=== PATIENT | female | born 1955 | race Caucasian/White ===

== ENCOUNTER → 2021-09-24 09:55 | Outpatient (BNVA) | payer MEDICARE, SELFPAY | PROVIDERS: PCP Internal Medicine; Visit Provider Student in an Organized Health Care Education/Training Program | DX: M25.50 Pain in unspecified joint (principal); M85.80 Other specified disorders of bone density and structure, unspecified site; Z78.0 Asymptomatic menopausal state | CPT/HCPCS: 99202 ==

== ENCOUNTER 2021-10-01 10:04 | Outpatient (REF) | payer OTHER, SELFPAY ==
--- NOTE | ~2021-10-01 | XR_ITS ---
EXAMINATION: XR HAND AND WRIST, RIGHT XR HAND AND WRIST, LEFT XR FOOT, LEFT XR FOOT, RIGHT CLINICAL INFORMATION: Pain. COMPARISON: None TECHNIQUE: 3 views of both hands and wrists as well as scaphoid views of the wrists bilaterally. 3 views of each foot. FINDINGS: RIGHT HAND AND WRIST: There is no evidence of acute fracture or dislocation of the right hand or wrist. Joint spaces are essentially maintained. There is a 1 mm bony density seen adjacent to the 5th metatarsal head likely representing sequela of previous injury. There is some spurring about the 1st interphalangeal joint. There is negative ulnar variance present. No erosive changes are appreciated. LEFT HAND AND WRIST: Joint spaces are maintained. There is spurring about the 1st interphalangeal joint. No erosive changes are appreciated. There is mild negative ulnar variance. No evidence of erosive arthritides. There is some spurring about the 1st carpometacarpal joint. There is mild spurring about the 5th proximal interphalangeal joint. RIGHT FOOT: There is no evidence of an acute fracture or dislocation of the right foot. There is prominent periosteal reaction which is smooth along the shaft of the 4th metatarsal likely related to healing or healed stress fracture. This is also seen to a lesser extent involving the 2nd and 3rd metatarsals. Joint spaces are maintained. Prominent plantar and Achilles calcaneal spurs are present. LEFT FOOT: There is no evidence of acute fracture or dislocation of the left foot. The left foot joint spaces are maintained. No periosteal new bone formation is seen about the diaphysis of the 4th metatarsal likely related to healed or healing stress fracture. There are prominent calcaneal spurs at sites of insertion of Achilles and plantar tendons. There is spurring at the dorsum of the talonavicular joint. XR/XR hand wrist RT IMPRESSION: LEFT AND RIGHT HAND AND WRIST: Mild degenerative change of the hands and wrists bilaterally as described without evidence of erosive arthritides. Bilateral negative ulnar variance. LEFT AND RIGHT FOOT: 1. Prominent bilateral calcaneal spurs at sites of insertion of Achilles and plantar tendons. 2. Bilateral smooth periosteal thickening involving metatarsals consistent with healing or healed stress fractures.
[2021-10-01 10:58] LABS: MANUAL DIFF FLAG NO
[2021-10-01 11:52] LABS: Basophils Percent Auto 0.7 % (0-2); Eosinophils Absolute Auto 0.2 X10*3/uL (0.0-0.4); Eosinophils Percent Auto 2.5 % (0-4); Hematocrit 46.1 % (37.0-47.0); Hemoglobin 14.8 g/dl (12.0-16.0); Imm Gran Abs Auto 0.02 X10*3/uL (0.00-0.03); Imm Gran Pct Auto 0.3 % (0.0-0.4); Lymphocytes Absolute Auto 1.8 X10*3/uL (1.2-4.9); Lymphocytes Percent Auto 30.1 % (20-40); Mean Corpuscular HGB Conc 32.1 g/dl (31.0-35.0); Mean Corpuscular Hemoglobin 28.7 pg (27.0-33.0); Mean Corpuscular Volume 89.5 fL (80.0-98.0); Mean Platelet Volume 10.3 fL (9.4-12.3); Monocytes Absolute Auto 0.5 X10*3/uL (0.1-1.2); Monocytes Percent Auto 7.5 % (2-11); Neutrophils Absolute Auto 3.6 x10*3/uL (2.0-8.3); Neutrophils Percent Auto 58.9 % (45-73); Platelet Count 242 X10*3/uL (160-400); Red Blood Count 5.15 X10*6/uL (4.20-5.50); Red Cell Distribution Width 15.9 % (11.0-16.0)
[2021-10-01 12:31] LABS: Alanine Aminotransferase 26 U/L (0-31); Albumin Level 4.2 g/dL (3.5-5.0); Alkaline Phosphatase 52 U/L (39-117); Anion Gap 14 (12-20); Aspartate Amino Transferase 22 U/L (5-31); Bilirubin Total 0.8 mg/dL (0.0-1.0); Blood Urea Nitrogen 17 mg/dL (9-16); C Reactive Protein 0.29 mg/dL (< or = 0.50); Calcium 9.3 mg/dL (8.4-10.2); Carbon Dioxide 27 mmol/L (22-29); Chloride 104 mmol/L (96-108); Estimated Glomerular Filt Rate 58; Glucose Random 82 mg/dL (60-115); Potassium 4.6 mmol/L (3.3-5.1); Sodium 140 mmol/L (135-145); Total Protein 6.9 g/dL (6.5-8.0)
[2021-10-01 12:51] LABS: Rheumatoid Factor < 15.0 IU/mL (<15.0)
[2021-10-01 13:11] LABS: Erythrocyte Sedimentation Rate 7 MM/HR (0-20)
[2021-10-03 15:46] LABS: Cyclic Citrullinated Peptide <16 UNITS
== END 2021-10-01 10:05 | disposition home or self-care (01) ==
LOC: HO.LAB 10:04
PROVIDERS: PCP Internal Medicine; Visit Provider Student in an Organized Health Care Education/Training Program
DX: M79.671 Pain in right foot (principal); M79.672 Pain in left foot; M79.641 Pain in right hand; M79.642 Pain in left hand; M25.531 Pain in right wrist; M25.532 Pain in left wrist; M85.80 Other specified disorders of bone density and structure, unspecified site; Z78.0 Asymptomatic menopausal state
CPT/HCPCS: 36415; 73110; 73130; 73620; 80053; 82550; 85025; 85652; 86140; 86200; 86431

== ENCOUNTER → 2021-10-22 09:23 | Outpatient (BNVA) | payer OTHER, SELFPAY | PROVIDERS: PCP Internal Medicine; Visit Provider Student in an Organized Health Care Education/Training Program | DX: M79.7 Fibromyalgia (principal) | CPT/HCPCS: 99212 ==

== ENCOUNTER 2021-10-30 13:56 | Outpatient (REF) | payer OTHER, SELFPAY ==
--- NOTE | ~2021-10-30 | MM_ITS ---
EXAMINATION: BONE DENSITOMETRY CLINICAL INDICATION: Pain in unspecified joint. COMPARISON: This is the patient's baseline examination. TECHNIQUE: Using a [employer] DXA System (software version: 13.1) manufactured by [employer], dual-energy x-ray absorptiometry was performed of the lumbar spine and left hip. The images are of good technical quality. Summary results are attached. FINDINGS: AP SPINE L1-L4: BMD 0.912 g/cm2, Z-score -0.9, T-score -2.2, osteopenia. LEFT FEMUR, NECK: BMD 0.846 g/cm2, Z-score 0.0, T-score -1.4, osteopenia. LEFT FEMUR, TOTAL: BMD 1.046 g/cm2, Z-score 1.4, T-score 0.3, normal. IDENTIFIED RISK FACTORS: Menopause, height loss, hysterectomy, osteoporosis, glucocorticoids (chronic), bilateral oophorectomy. HISTORY OF FRACTURE: None listed. MEDICATIONS: Calcium, vitamin D. MM/XR DEXA axial skeleton IMPRESSION: 1. DIAGNOSIS: Osteopenia based on the lowest T-score value of -2.2 in the lumbar spine applying World Health Organization criteria. 2. 10-YEAR FRACTURE RISK PREDICTION, FRAX: Major osteoporotic fracture (clinical spine, forearm, hip or shoulder) 7.7%. Hip fracture 0.9%. 3. Treatment Recommendations: NOF guidelines recommend consideration for treatment in postmenopausal women and men age 50 and older presenting with the following: -A hip or vertebral (clinical or morphometric) fracture. -T-score less than or equal to -2.5 at the femoral neck or spine after appropriate evaluation to exclude secondary causes. -Low bone mass at the hip or spine and a 10-year fracture probability by FRAX of greater than or equal to 3% for hip fracture or greater than or equal to 20% for major osteoporotic fracture based on the [place] adapted WHO algorithm. 4. Other Recommendations: All treatment decisions require clinical judgment and consideration of individual patient factors, including patient preferences, comorbidities, previous drug use, risk factors not captured in the FRAX model (e.g. frailty, falls, vitamin D deficiency, increased bone turnover, interval significant decline in bone density) and possible under or overestimation of fracture risk by FRAX. Additional medical evaluation for secondary cause of low bone mineral density may be appropriate. FUTURE SCAN RECOMMENDATION: People with diagnosed cases of osteoporosis or at high risk for fracture should have regular bone mineral density tests. For patients eligible for Medicare, routine testing is allowed once every 2 years. The testing frequency can be increased to one year for patients who have rapidly progressing disease, those who are receiving or discontinuing medical therapy to restore bone mass, or have additional risk factors.
== END 2021-10-30 13:57 | disposition home or self-care (01) ==
LOC: HO.MAMMO 13:56
PROVIDERS: PCP Internal Medicine; Visit Provider Student in an Organized Health Care Education/Training Program
DX: Z13.820 Encounter for screening for osteoporosis (principal); Z78.0 Asymptomatic menopausal state; M85.88 Other specified disorders of bone density and structure, other site; M25.50 Pain in unspecified joint
CPT/HCPCS: 77080

== ENCOUNTER 2023-01-05 09:36 | Outpatient (AMB) | payer OTHER, SELFPAY ==
--- NOTE | 2023-01-05 09:45 | HO.NEPHOV ---
HPI HPI Comments History of Present Illness Details I had the privilege of seeing Mrs. Eldridge accompanied by her CERTIFIED CREDIT COUNSELOR in follow-up of her hypertension. She had her right carpal tunnel surgery few days ago. She is not taking any anti-inflammatory medications. Her blood sugar and blood pressure are well controlled. She does not have any pedal edema, urinary symptoms, orthostasis, chest pain or proximal nocturnal dyspnea. She had eczematous rash in the past which was thought to be due to hydrochlorothiazide. She also had emotional lability on metoprolol and was discontinued. She is tolerating spironolactone and labetalol. She has a lot of medications side effects. She denies any nausea, vomiting, diarrhea. She is compliant with the low-sodium diet and her medications. [facility] Medical History (Updated 01/05/23 @ 11:26 by Hernando Sharpe MD) Osteopenia Diverticulosis Hypothyroidism Anxiety Type 2 diabetes mellitus without complication Eczema Trigeminal neuralgia of right side of face Surgical History Hx of hysterectomy Hx of tubal ligation Hx of cholecystectomy Household Members: Spouse Alcohol intake: never Patient Tobacco Use Status: Never used Tobacco service: No Current occupational status: retired Vital Signs 01/05/23 09:47 01/05/23 10:04 Height 4 ft 11 in Weight 174 lb 6 oz BMI 35.2 BP 140/88 H 120/80 Blood Pressure Location Lt brachial Position Sitting Pulse 56 Pulse Source Pulse Oximeter Pulse Oximetry (%) 98 Oxygen Delivery Method Room Air Physical Exam Vital Signs: Last Vital Signs Pulse 56 01/05/23 09:47 BP 120/80 01/05/23 10:04 Pulse Ox 98 01/05/23 09:47 Oxygen Delivery Method Room Air 01/05/23 09:47 BMI result Body Mass Index 35.2 Const General: comfortable and no acute distress Orientation/consciousness: patient oriented x3 HEENT Head: Yes normocephalic Mouth: Normal oral and palatal mucosa present Eyes EOM: EOMs intact bilaterally Neck Neck: Yes supple Resp Auscultation: clear to auscultation bilaterally Cardio Jugular venous distension: no JVD Rate: regular rate GI Palpation (GI): Soft to palpation Auscultation: normal bowel sounds General: Yes no CVA tenderness Back/Spine/Pelvis Back: no CVA tenderness Skin General skin exam: no rashes or lesions noted Neuro General: patient oriented x3 and moves all extremities Extrem General: Yes no pedal edema Assessment & Plan Assessment & Plan (1) Hypertension: Code(s): I10 - Essential (primary) hypertension Qualifiers: Hypertension type: primary hypertension Qualified Code(s): I10 - Essential (primary) hypertension Plan Mrs Eldridge has longstanding hypertension on a backdrop of multiple medication intolerances. She had eczematous rashes due to hydrochlorothiazide and it was discontinued. She could not handle metoprolol acid was giving her emotional instability. She is currently on labetalol and spironolactone, which she is tolerating well. She is trying to lose some weight, maintain good hydration, avoid nonsteroidal anti-inflammatory medications and maintain a low-sodium diet. I did not make any medication changes today. I went over current management strategy and discussed regarding laboratory studies and further followups. All her questions were answered. Follow-up was given. Time spent for retrieval of data, patient encounter and documentation 23 minutes. Orders: Orders Protein Creatinine Ratio, Ur Today I10 - Essential (primary) hypertension Electrolytes Today I10 - Essential (primary) hypertension Blood Urea Nitrogen Today I10 - Essential (primary) hypertension Creatinine Today I10 - Essential (primary) hypertension Calcium Today I10 - Essential (primary) hypertension Coding Level of Care Code Est Pt Level 3 (46473) Diagnoses Primary hypertension I10 Hypertension type: primary hypertension
[2023-01-05 09:47] VITALS: BP 140/88; PULSE 56; O2SAT 98; BMI 35.2
[2023-01-05 10:04] VITALS: BP 120/80
== END 2023-01-05 10:18 | disposition home or self-care (01) ==
PROVIDERS: PCP Internal Medicine; Visit Provider Internal Medicine Nephrology
DX: I10 Essential (primary) hypertension (principal)
CPT/HCPCS: 99213

== ENCOUNTER → 2023-01-05 09:36 | Outpatient (BNVA) | payer OTHER, SELFPAY | PROVIDERS: PCP Internal Medicine; Visit Provider Internal Medicine Nephrology | DX: I10 Essential (primary) hypertension (principal) | CPT/HCPCS: 99212 ==

== ENCOUNTER 2023-04-09 09:32 | Outpatient (AMB) | payer OTHER, SELFPAY ==
--- NOTE | 2023-04-09 09:41 | HO.NEPHOV ---
HPI HPI Comments History of Present Illness Details I had the privilege of seeing Mrs. Eldridge in follow-up of her hypertension. She recently had her right carpal tunnel surgery. She is not taking any anti-inflammatory medications. She does not have any pedal edema, urinary symptoms, orthostasis, chest pain or proximal nocturnal dyspnea. She had eczematous rash in the past which was thought to be due to hydrochlorothiazide. She also had emotional lability on metoprolol and was discontinued. She is tolerating spironolactone and labetalol. She has a lot of medications side effects. She denies any nausea, vomiting, diarrhea. She is compliant with the low-sodium diet and her medications [facility] Medical History (Updated 01/05/23 @ 11:26 by Hernando Sharpe MD) Osteopenia Diverticulosis Hypothyroidism Anxiety Type 2 diabetes mellitus without complication Eczema Trigeminal neuralgia of right side of face Surgical History Hx of hysterectomy Hx of tubal ligation Hx of cholecystectomy Social History Household Members: Spouse Alcohol intake: never Patient Tobacco Use Status: Never used Tobacco service: No Current occupational status: retired Vital Signs 04/09/23 09:44 Height 4 ft 11 in Weight 175 lb 2 oz BMI 35.4 BP 140/90 H Blood Pressure Location Lt brachial Position Sitting Pulse 55 Pulse Source Pulse Oximeter Pulse Oximetry (%) 98 Oxygen Delivery Method Room Air Physical Exam Const General: comfortable and no acute distress Orientation/consciousness: patient oriented x3 HEENT Head: Yes normocephalic Mouth: Normal oral and palatal mucosa present Eyes EOM: EOMs intact bilaterally Neck Neck: Yes supple Resp Auscultation: clear to auscultation bilaterally Cardio Jugular venous distension: no JVD Rate: regular rate GI Palpation (GI): Soft to palpation Auscultation: normal bowel sounds General: Yes no CVA tenderness Back/Spine/Pelvis Back: no CVA tenderness Skin General skin exam: no rashes or lesions noted Neuro General: patient oriented x3 and moves all extremities Extrem General: Yes no pedal edema Assessment & Plan Assessment & Plan (1) Hypertension: Code(s): I10 - Essential (primary) hypertension Qualifiers: Hypertension type: primary hypertension Qualified Code(s): I10 - Essential (primary) hypertension Plan Mrs Eldridge has longstanding hypertension on a backdrop of multiple medication intolerances. She had eczematous rashes due to hydrochlorothiazide and it was discontinued. She could not handle metoprolol as it was giving her emotional instability. She is currently on labetalol and spironolactone, which she is tolerating well. She is trying to lose some weight, maintain good hydration, avoid nonsteroidal anti-inflammatory medications and maintain a low-sodium diet. I did not make any medication changes today. I went over current management strategy and discussed regarding laboratory studies and further followups. All her questions were answered. Follow-up was given. Orders: Orders Electrolytes Today I10 - Essential (primary) hypertension Creatinine Today I10 - Essential (primary) hypertension Blood Urea Nitrogen Today I10 - Essential (primary) hypertension Coding Level of Care Code Est Pt Level 3 (40231) Diagnoses Primary hypertension I10 Hypertension type: primary hypertension Results Reviewed Nephrology Results: Hgb 14.8 g/dl (12.0-16.0) 10/01/21 WBC 6.0 X10*3/uL (4.8-10.8) 10/01/21 Plt Count 242 X10*3/uL (160-400) 10/01/21 Sodium 140 mmol/L (135-145) 10/01/21 Potassium 4.6 mmol/L (3.3-5.1) 10/01/21 Chloride 104 mmol/L (96-108) 10/01/21 Carbon Dioxide 27 mmol/L (22-29) 10/01/21 BUN 17 mg/dL (9-16) H 10/01/21 Creatinine 0.96 mg/dL (0.5-1.4) 10/01/21 Calcium 9.3 mg/dL (8.4-10.2) 10/01/21
[2023-04-09 09:44] VITALS: BP 140/90; PULSE 55; O2SAT 98; BMI 35.4
== END 2023-04-09 10:14 | disposition home or self-care (01) ==
PROVIDERS: PCP Internal Medicine; Visit Provider Internal Medicine Nephrology
DX: I10 Essential (primary) hypertension (principal)
CPT/HCPCS: 99213

== ENCOUNTER → 2023-04-09 09:32 | Outpatient (BNVA) | payer OTHER, SELFPAY | PROVIDERS: PCP Internal Medicine; Visit Provider Internal Medicine Nephrology | DX: I10 Essential (primary) hypertension (principal) | CPT/HCPCS: 99212 ==

== ENCOUNTER 2023-07-22 08:41 | Outpatient (REF) | payer OTHER, SELFPAY ==
[2023-07-22 19:04] LABS: Anion Gap 10 (12-20); Blood Urea Nitrogen 15 mg/dL (9-16); Calcium 9.5 mg/dL (8.4-10.2); Carbon Dioxide 24 mmol/L (22-29); Chloride 109 mmol/L (96-108); Estimated Glomerular Filt Rate 55; Potassium 4.3 mmol/L (3.3-5.1); Sodium 139 mmol/L (135-145)
[2023-07-22 19:17] LABS: Creatinine Urine 79.68 mg/dL; Total Protein Urine Random < 7 mg/dL (<12)
== END 2023-07-22 08:42 | disposition home or self-care (01) ==
LOC: HO.HKASLDS 08:41
PROVIDERS: Visit Provider Internal Medicine Nephrology
DX: I10 Essential (primary) hypertension (principal)
CPT/HCPCS: 36415; 80051; 82310; 82565; 82570; 84156; 84520

== ENCOUNTER 2023-08-06 10:33 | Outpatient (AMB) | payer OTHER, SELFPAY ==
--- NOTE | 2023-08-06 10:37 | HO.NEPHOV_ITS ---
Vital Signs 08/06/23 10:39 Height 4 ft 11 in Weight 173 lb 6 oz BMI 35.0 BP 118/70 Blood Pressure Location Lt brachial Position Sitting Pulse 64 Pulse Source Pulse Oximeter Pulse Oximetry (%) 98 Oxygen Delivery Method Room Air Intake Visit Reasons: 4 mon follow up/ LVM Forensic Audit Expert Required: No Accompanied by: Other Relationship Allergies benazepril Allergy (Severe, Verified 08/06/23 10:42) Anaphylaxis moxifloxacin Allergy (Intermediate, Verified 08/06/23 10:42) Wheezing duloxetine [From Cymbalta] Adverse Reaction (Intermediate, Verified 08/06/23 10:42) Palpitations pregabalin [From Lyrica] Adverse Reaction (Intermediate, Verified 08/06/23 10:42) Confusion amoxicillin [From Augmentin] Adverse Reaction (Unknown, Verified 08/06/23 10:42) Unknown clavulanic acid [From Augmentin] Adverse Reaction (Unknown, Verified 08/06/23 10:42) Unknown hydralazine Adverse Reaction (Unknown, Verified 08/06/23 10:42) Unknown ibuprofen Adverse Reaction (Unknown, Verified 08/06/23 10:42) Swelling losartan Adverse Reaction (Unknown, Verified 08/06/23 10:42) Nausea nickel Adverse Reaction (Unknown, Verified 08/06/23 10:42) Unknown nifedipine Adverse Reaction (Unknown, Verified 08/06/23 10:42) Unknown prednisone Adverse Reaction (Unknown, Verified 08/06/23 10:42) Unknown maple flavor Adverse Reaction (Severe, Uncoded 10/22/21 09:33) Unknown dust Adverse Reaction (Unknown, Uncoded 10/22/21 09:33) Unknown nuts Adverse Reaction (Unknown, Uncoded 10/22/21 09:33) Unknown pollen Adverse Reaction (Unknown, Uncoded 10/22/21 09:33) Unknown HPI Comments Details: I had the privilege of seeing Mrs. Eldridge in follow-up of her hypertension. She is not taking any anti-inflammatory medications. She does not have any pedal edema, urinary symptoms, orthostasis, chest pain or proximal nocturnal dyspnea. She had eczematous rash in the past which was thought to be due to hydrochlorothiazide. She also had emotional lability on metoprolol and was discontinued. She is tolerating spironolactone and labetalol. She has a lot of medications side effects. She denies any nausea, vomiting, diarrhea. She is compliant with the low-sodium diet and her medications. Her BP has been at goal [facility] Medical History (Updated 01/05/23 @ 11:26 by Hernando Sharpe MD) Osteopenia Diverticulosis Hypothyroidism Anxiety Type 2 diabetes mellitus without complication Eczema Trigeminal neuralgia of right side of face Surgical History Hx of hysterectomy Hx of tubal ligation Hx of cholecystectomy Social History Household Members: Spouse Alcohol intake: never Patient Tobacco Use Status: Never used Tobacco service: No Current occupational status: retired Physical Exam Vital Signs: Last Vital Signs Pulse 64 08/06/23 10:39 BP 118/70 08/06/23 10:39 Pulse Ox 98 08/06/23 10:39 Oxygen Delivery Method Room Air 08/06/23 10:39 BMI result Body Mass Index 35.0 Const General: comfortable and no acute distress Orientation/consciousness: patient oriented x3 HEENT Head: Yes normocephalic Mouth: Normal oral and palatal mucosa present Eyes EOM: EOMs intact bilaterally Neck Neck: Yes supple Resp Auscultation: clear to auscultation bilaterally Cardio Jugular venous distension: no JVD Rate: regular rate GI Palpation (GI): Soft to palpation Auscultation: normal bowel sounds General: Yes no CVA tenderness Back/Spine/Pelvis Back: no CVA tenderness Skin General skin exam: no rashes or lesions noted Neuro General: patient oriented x3 and moves all extremities Extrem General: Yes no pedal edema Results Reviewed Nephrology Results: Sodium 139 mmol/L (135-145) 07/22/23 Potassium 4.3 mmol/L (3.3-5.1) 07/22/23 Chloride 109 mmol/L (96-108) H 07/22/23 Carbon Dioxide 24 mmol/L (22-29) 07/22/23 BUN 15 mg/dL (9-16) 07/22/23 Creatinine 1.00 mg/dL (0.5-1.4) 07/22/23 Calcium 9.5 mg/dL (8.4-10.2) 07/22/23 Urine Creatinine 79.68 mg/dL 07/22/23 Protein/Creatinin Ratio TNP 07/22/23 Assessment & Plan Assessment & Plan (1) Hypertension: Code(s): I10 - Essential (primary) hypertension Category: Medical Qualifiers: Hypertension type: primary hypertension Qualified Code(s): I10 - Essential (primary) hypertension Plan Mrs Eldridge has longstanding hypertension on a backdrop of multiple medication intolerances. She had eczematous rashes due to hydrochlorothiazide and it was discontinued. She could not handle metoprolol as it was giving her emotional instability. She is currently on labetalol and spironolactone, which she is tolerating well. She is trying to lose some weight, maintain good hydration, avoid nonsteroidal anti-inflammatory medications and maintain a low-sodium diet. I did not make any medication changes today. All her questions were answered. Follow-up was given. Coding Level of Care Code Est Pt Level 4 (17668) Diagnoses Primary hypertension I10 Hypertension type: primary hypertension
[2023-08-06 10:39] VITALS: BP 118/70; PULSE 64; O2SAT 98; BMI 35.0
== END 2023-08-06 10:58 | disposition home or self-care (01) ==
PROVIDERS: PCP Internal Medicine; Visit Provider Internal Medicine Nephrology
DX: I10 Essential (primary) hypertension (principal)
CPT/HCPCS: 99214

== ENCOUNTER → 2023-08-06 10:33 | Outpatient (BNVA) | payer OTHER, SELFPAY | PROVIDERS: PCP Internal Medicine; Visit Provider Internal Medicine Nephrology | DX: I10 Essential (primary) hypertension (principal) | CPT/HCPCS: 99212 ==

== ENCOUNTER 2023-10-19 10:21 | Outpatient (AMB) | payer OTHER, SELFPAY ==
--- NOTE | 2023-10-19 10:23 | HO.NEPHOV_ITS ---
Vital Signs 10/19/23 10:24 Height 4 ft 11 in Weight 165 lb 6 oz BMI 33.4 BP 130/86 Blood Pressure Location Rt brachial Position Sitting Pulse 63 Pulse Source Pulse Oximeter Pulse Oximetry (%) 98 Oxygen Delivery Method Room Air Intake Visit Reasons: Elevated BP/Abnormal labs meg [place] [employer] Information Technician Required: No Accompanied by: Other Relationship Allergies benazepril Allergy (Severe, Verified 10/19/23 10:28) Anaphylaxis moxifloxacin Allergy (Intermediate, Verified 10/19/23 10:28) Wheezing duloxetine [From Cymbalta] Adverse Reaction (Intermediate, Verified 10/19/23 10:28) Palpitations pregabalin [From Lyrica] Adverse Reaction (Intermediate, Verified 10/19/23 10:28) Confusion amoxicillin [From Augmentin] Adverse Reaction (Unknown, Verified 10/19/23 10:28) Unknown clavulanic acid [From Augmentin] Adverse Reaction (Unknown, Verified 10/19/23 10:28) Unknown hydralazine Adverse Reaction (Unknown, Verified 10/19/23 10:28) Unknown ibuprofen Adverse Reaction (Unknown, Verified 10/19/23 10:28) Swelling losartan Adverse Reaction (Unknown, Verified 10/19/23 10:28) Nausea nickel Adverse Reaction (Unknown, Verified 10/19/23 10:28) Unknown nifedipine Adverse Reaction (Unknown, Verified 10/19/23 10:28) Unknown prednisone Adverse Reaction (Unknown, Verified 10/19/23 10:28) Unknown maple flavor Adverse Reaction (Severe, Uncoded 10/22/21 09:33) Unknown dust Adverse Reaction (Unknown, Uncoded 10/22/21 09:33) Unknown nuts Adverse Reaction (Unknown, Uncoded 10/22/21 09:33) Unknown pollen Adverse Reaction (Unknown, Uncoded 10/22/21 09:33) Unknown HPI Comments Details: I had the privilege of seeing Mrs. Eldridge in follow-up of her hypertension. She recently had some blood work done by someone from her insurance company and her serum creatinine was found to be 1.5. She has been getting intra-articular cortisone injections for her arthritis. Her blood pressure had been labile and her PCP has increased her labetalol to 200 mg twice daily. She also takes spironolactone 50 mg at night. According to the INSTRUCTIONAL CONSULTANT, she has been wobbly during ambulation and feels excessively sleepy after meals. She has been prescribed meloxicam recently which she has been taking as needed basis. Ever since her labetalol has been increased her blood pressure is better controlled. She does not have any pedal edema, urinary symptoms, orthostasis, chest pain or proximal nocturnal dyspnea. She had eczematous rash in the past which was thought to be due to hydrochlorothiazide. She also had emotional lability on metoprolol and was discontinued. She is tolerating spironolactone and labetalol. She has a lot of medications side effects. She is compliant with the low-sodium diet and her medications. She is concerned about her rising serum creatinine. She denies taking any other nonsteroidal or [id number] medications. She does not have any urinary symptoms. [facility] Medical History (Updated 10/19/23 @ 10:58 by Hernando Sharpe MD) Osteopenia Diverticulosis Hypothyroidism Anxiety Type 2 diabetes mellitus without complication Eczema Trigeminal neuralgia of right side of face Surgical History Hx of hysterectomy Hx of tubal ligation Hx of cholecystectomy Social History Household Members: Spouse Alcohol intake: never Patient Tobacco Use Status: Never used Tobacco service: No Current occupational status: retired Review of Systems Const All systems reviewed & are unremarkable except as noted in HPI and below Physical Exam Vital Signs: Last Vital Signs Pulse 63 10/19/23 10:24 BP 130/86 10/19/23 10:24 Pulse Ox 98 10/19/23 10:24 Oxygen Delivery Method Room Air 10/19/23 10:24 BMI result Body Mass Index 33.4 Const General: comfortable and no acute distress Orientation/consciousness: patient oriented x3 HEENT Head: Yes normocephalic Mouth: Normal oral and palatal mucosa present Eyes EOM: EOMs intact bilaterally Neck Neck: Yes supple Resp Auscultation: clear to auscultation bilaterally Cardio Jugular venous distension: no JVD Rate: regular rate GI Palpation (GI): Soft to palpation Auscultation: normal bowel sounds General: Yes no CVA tenderness Back/Spine/Pelvis Back: no CVA tenderness Skin General skin exam: no rashes or lesions noted Neuro General: patient oriented x3 and moves all extremities Extrem General: Yes no pedal edema Assessment & Plan Assessment & Plan (1) ITZEL (acute kidney injury): Code(s): N17.9 - Acute kidney failure, unspecified Category: Medical (2) Hypertension: Code(s): I10 - Essential (primary) hypertension Category: Medical Qualifiers: Hypertension type: primary hypertension Qualified Code(s): I10 - Essential (primary) hypertension Plan Mrs Eldridge has longstanding hypertension on a backdrop of multiple medication intolerances. She had eczematous rashes due to hydrochlorothiazide and it was discontinued in the past.. She could not handle metoprolol as it was giving her emotional instability. She is currently on labetalol and spironolactone, which she is tolerating well. Her labetalol dose has been increased to 200 mg twice daily recently by her PCP. I asked her to take the spironolactone in the morning. Given recent serum creatinine of 1.5, I have repeat her blood work and urine studies today. If they remain abnormal I plan to do a renal ultrasound. She was encouraged and not to take any nonsteroidal anti-inflammatories including meloxicam for now. It is unclear whether she had altered autoregulation in the kidney causing hemodynamic ITZEL . She is trying to lose some weight, maintain good hydration, avoid nonsteroidal anti-inflammatory medications and maintain a low-sodium diet. I did not make any medication changes today. All her questions were answered. Further management is pending evolving data. Follow-up was given. Orders: Orders Creatinine Today I10 - Essential (primary) hypertension, N17.9 - Acute kidney failure, unspecified Blood Urea Nitrogen Today I10 - Essential (primary) hypertension, N17.9 - Acute kidney failure, unspecified Electrolytes Today I10 - Essential (primary) hypertension, N17.9 - Acute kidney failure, unspecified UA and rflx microscopic Today I10 - Essential (primary) hypertension, N17.9 - Acute kidney failure, unspecified Protein Creatinine Ratio, Ur Today I10 - Essential (primary) hypertension, N17.9 - Acute kidney failure, unspecified Coding Level of Care Code Est Pt Level 4 (33750) Diagnoses ITZEL (acute kidney injury) N17.9 Primary hypertension I10 Hypertension type: primary hypertension
[2023-10-19 10:24] VITALS: BP 130/86; PULSE 63; O2SAT 98; BMI 33.4
== END 2023-10-19 11:02 | disposition home or self-care (01) ==
PROVIDERS: PCP Internal Medicine; Visit Provider Internal Medicine Nephrology
DX: N17.9 Acute kidney failure, unspecified (principal); I10 Essential (primary) hypertension
CPT/HCPCS: 99214

== ENCOUNTER → 2023-10-19 10:21 | Outpatient (BNVA) | payer OTHER, SELFPAY | PROVIDERS: PCP Internal Medicine; Visit Provider Internal Medicine Nephrology | DX: I10 Essential (primary) hypertension (principal); N17.9 Acute kidney failure, unspecified | CPT/HCPCS: 36415; 80051; 81001; 82565; 82570; 84156; 84520; 99212 ==

== ENCOUNTER 2023-10-19 11:09 | Outpatient (REF) | payer OTHER, SELFPAY ==
[2023-10-19 13:27] LABS: Appearance Urine Cloudy; Color Urine Yellow; Glucose Urine UA Negative (Negative); Leukocyte Esterase Urine Large (3+) (Negative); Nitrite Urine Negative (Negative); UMIC TRIGGER UA YES; Urine Blood Negative (Negative); Urine Ketones Negative (Negative); Urine Protein Trace mg/dL (Neg-Trace)
[2023-10-19 13:43] LABS: Bacteria Urine 2+ (None Seen); RBC Urine 0-2 /HPF (0-2); Squamous Epithelial Cell Urine 0-2 /HPF (0-2); WBC Urine >50 /HPF (0-5)
[2023-10-19 13:51] LABS: Anion Gap 12 (12-20); Blood Urea Nitrogen 17 mg/dL (9-16); Carbon Dioxide 26 mmol/L (22-29); Chloride 107 mmol/L (96-108); Estimated Glomerular Filt Rate 56; Potassium 4.1 mmol/L (3.3-5.1); Sodium 141 mmol/L (135-145)
[2023-10-19 14:17] LABS: Creatinine Urine 164.77 mg/dL; Total Protein Urine Random 17 mg/dL (<12)
== END 2023-10-19 11:10 | disposition home or self-care (01) ==
LOC: HO.10HDL 11:09
PROVIDERS: Visit Provider Internal Medicine Nephrology
DX: N17.9 Acute kidney failure, unspecified (principal); I10 Essential (primary) hypertension
CPT/HCPCS: 36415; 80051; 81001; 82565; 82570; 84156; 84520

== ENCOUNTER 2023-11-12 10:28 | Outpatient (AMB) | payer OTHER, SELFPAY ==
--- NOTE | 2023-11-12 10:42 | HO.NEPHOV ---
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 Required: No Accompanied by: Other Relationship Allergies benazepril Allergy (Severe, Verified 11/12/23 10:46) Anaphylaxis moxifloxacin Allergy (Intermediate, Verified 11/12/23 10:46) Wheezing duloxetine [From Cymbalta] Adverse Reaction (Intermediate, Verified 11/12/23 10:46) Palpitations pregabalin [From Lyrica] Adverse Reaction (Intermediate, Verified 11/12/23 10:46) Confusion amoxicillin [From Augmentin] Adverse Reaction (Unknown, Verified 11/12/23 10:46) Unknown clavulanic acid [From Augmentin] Adverse Reaction (Unknown, Verified 11/12/23 10:46) Unknown hydralazine Adverse Reaction (Unknown, Verified 11/12/23 10:46) Unknown ibuprofen Adverse Reaction (Unknown, Verified 11/12/23 10:46) Swelling losartan Adverse Reaction (Unknown, Verified 11/12/23 10:46) Nausea nickel Adverse Reaction (Unknown, Verified 11/12/23 10:46) Unknown nifedipine Adverse Reaction (Unknown, Verified 11/12/23 10:46) Unknown prednisone Adverse Reaction (Unknown, Verified 11/12/23 10:46) Unknown maple flavor Adverse Reaction (Severe, Uncoded 10/22/21 09:33) Unknown dust Adverse Reaction (Unknown, Uncoded 10/22/21 09:33) Unknown nuts Adverse Reaction (Unknown, Uncoded 10/22/21 09:33) Unknown pollen Adverse Reaction (Unknown, Uncoded 10/22/21 09:33) Unknown HPI Comments Details: I had the privilege of seeing Mrs. Eldridge in follow-up of her hypertension. Her blood pressure is well controlled now. She does not have any pedal edema, urinary symptoms, orthostasis, chest pain or proximal nocturnal dyspnea. She had eczematous rash in the past which was thought to be due to hydrochlorothiazide. She also had emotional lability on metoprolol and was discontinued. She is tolerating spironolactone and labetalol. She has a lot of medications side effects. She is compliant with the low-sodium diet and her medications. She denies taking any other nonsteroidal or [id number] medications. She has been having intermittent dysuria symptoms. [facility] Medical History (Updated 11/12/23 @ 10:59 by Hernando Sharpe MD) Osteopenia Diverticulosis Hypothyroidism Anxiety Type 2 diabetes mellitus without complication Eczema Trigeminal neuralgia of right side of face Surgical History Hx of hysterectomy Hx of tubal ligation Hx of cholecystectomy Social History Household Members: Spouse Alcohol intake: never Patient Tobacco Use Status: Never used Tobacco service: No Current occupational status: retired Review of Systems Const All systems reviewed & are unremarkable except as noted in HPI and below Physical Exam Vital Signs: Last Vital Signs Pulse 62 11/12/23 10:43 BP 130/70 11/12/23 10:43 Pulse Ox 98 11/12/23 10:43 Oxygen Delivery Method Room Air 11/12/23 10:43 BMI result Body Mass Index 34.4 Const General: comfortable and no acute distress Orientation/consciousness: patient oriented x3 HEENT Head: Yes normocephalic Mouth: Normal oral and palatal mucosa present Eyes EOM: EOMs intact bilaterally Neck Neck: Yes supple Resp Auscultation: clear to auscultation bilaterally Cardio Jugular venous distension: no JVD Rate: regular rate GI Palpation (GI): Soft to palpation Auscultation: normal bowel sounds General: Yes no CVA tenderness Back/Spine/Pelvis Back: no CVA tenderness Skin General skin exam: no rashes or lesions noted Neuro General: patient oriented x3 and moves all extremities Extrem General: Yes no pedal edema Results Reviewed Nephrology Results: Sodium 141 mmol/L (135-145) 10/19/23 Potassium 4.1 mmol/L (3.3-5.1) 10/19/23 Chloride 107 mmol/L (96-108) 10/19/23 Carbon Dioxide 26 mmol/L (22-29) 10/19/23 BUN 17 mg/dL (9-16) H 10/19/23 Creatinine 0.98 mg/dL (0.5-1.4) 10/19/23 Calcium 9.5 mg/dL (8.4-10.2) 07/22/23 Urine Protein Trace mg/dL (Neg-Trace) 10/19/23 Urine Creatinine 164.77 mg/dL 10/19/23 Protein/Creatinin Ratio 0.10 (<0.2) 10/19/23 Assessment & Plan Assessment & Plan (1) Dysuria: Code(s): R30.0 - Dysuria Category: Medical Plan Mrs Eldridge has longstanding hypertension on a backdrop of multiple medication intolerances. She had eczematous rashes due to hydrochlorothiazide and it was discontinued in the past.. She could not handle metoprolol as it was giving her emotional instability. She is currently on labetalol and spironolactone, which she is tolerating well. She was encouraged and not to take any nonsteroidal anti-inflammatories including meloxicam for now. It is unclear whether she had altered autoregulation in the kidney causing hemodynamic ITZEL with serum creatinine rising to 1.5 , which has settled now . She is trying to lose some weight, maintain good hydration, avoid nonsteroidal anti-inflammatory medications and maintain a low-sodium diet. I started her to Keflex 500 mg bid X 7 days. I did not make any other medication changes today. All her questions were answered. Further management is pending evolving data. Follow-up was given. Orders: Orders Urine Culture 10 Days R30.0 - Dysuria Medications: New cephalexin 500 mg PO BID 7 days 14 caps 0RF Coding Level of Care Code Est Pt Level 4 (52717) Diagnoses Dysuria R30.0
[2023-11-12 10:43] VITALS: BP 130/70; PULSE 62; O2SAT 98; BMI 34.4
== END 2023-11-12 11:10 | disposition home or self-care (01) ==
PROVIDERS: PCP Internal Medicine; Visit Provider Internal Medicine Nephrology
DX: R30.0 Dysuria (principal)
CPT/HCPCS: 99214

== ENCOUNTER → 2023-11-12 10:28 | Outpatient (BNVA) | payer OTHER, SELFPAY | PROVIDERS: PCP Internal Medicine; Visit Provider Internal Medicine Nephrology | DX: R30.0 Dysuria (principal) | CPT/HCPCS: 99212 ==

== ENCOUNTER 2023-11-25 08:47 | Outpatient (REF) | payer OTHER, SELFPAY ==
[2023-11-25 13:52] LABS: Appearance Urine Cloudy; Color Urine Dark Yellow; Glucose Urine UA Negative (Negative); Leukocyte Esterase Urine Large (3+) (Negative); Nitrite Urine Negative (Negative); UMIC TRIGGER UA YES; Urine Blood Moderate (2+) (Negative); Urine Ketones Trace mg/dL (Negative); Urine Protein 30 (1+) mg/dL (Neg-Trace)
[2023-11-25 14:08] LABS: Bacteria Urine 1+ (None Seen); Hyaline Casts Urine >20 /LPF (0-2); WBC Urine >50 /HPF (0-5)
[2023-11-25 14:22] LABS: Anion Gap 10 (12-20); Blood Urea Nitrogen 19 mg/dL (9-16); Carbon Dioxide 24 mmol/L (22-29); Chloride 107 mmol/L (96-108); Estimated Glomerular Filt Rate 50; Potassium 4.1 mmol/L (3.3-5.1); Sodium 137 mmol/L (135-145)
== END 2023-11-25 08:48 | disposition home or self-care (01) ==
LOC: HO.HKASLDS 08:47
PROVIDERS: Visit Provider Internal Medicine Nephrology
DX: I10 Essential (primary) hypertension (principal); R30.0 Dysuria
CPT/HCPCS: 36415; 80051; 81001; 82565; 84520; 87086; 87088; 87186

== ENCOUNTER 2024-05-19 11:04 | Outpatient (AMB) | payer OTHER, SELFPAY ==
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
[2024-05-19 11:07] VITALS: BP 129/60; PULSE 59; O2SAT 97; BMI 32.4
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
--- OUTSIDE RECORDS SUMMARY | 2024-05-19 13:21 | XMS_ITS | Data Portability ---
Author Organization [place] [facility] Address [address] [place] [id number] Care Team Providers Care Software Client Architect Name Role Phone KENDAL HERNANDEZ Primary Care Provider [place] OTHER [facility] OTHER Assessment Encounter Date Assessment Date Assessment LastModified by Organization Details LastModified Time 05/25/2020 05/25/2020 Overview/History :T is a 65-year-old female that [facility] at the suggestion of her qa tester from [facility]. The patient reports she has had changed her medication regimen over the past week. She reports she is very sensitive to some regular medication adjustments. She has been having nausea for the past several days. She had contacted her prescribers office to report this and was told that her symptoms may be consistent with COVID. The patient has received both of her COVID-19 vaccinations with her second dose in April making it more than 2 weeks since this second dose of vaccine. She reports she feels somewhat better after taking TUMS and that she has been able to tolerate 2 meals today. Exam: On exam patient is awake and alert, she is afebrile and hemodynamically stable. Overall nontoxic appearing. She does appear to be a bit anxious and is quite soft spoken. Lungs clear to auscultation bilaterally, heart rate regular, normal bowel sounds x4, no guarding with palpation of her abdomen. She is ambulating with a very steady gait around her home. DDx considered, but not limited to:Her nausea is most likely due to changes in her medication regimen that have occurred in the past week. She also does seem to be very anxious and is very concerned about being told she might possibly have COVID so anxiety could be the cause of her nausea. Viral gastroenteritis also considered however patient is not having abdominal cramping or pain and does not have a significant fever. Bowel obstruction considered but unlikely as patient reports normal bowel movement this morning and tolerating food today. Work up/Results: Plan/Discussion:I discussed with the patient that it is extremely unlikely that she would have COVID-19 especially since she has had no recent sick contacts and she is fully vaccinated with her second dose of vaccine having occurred greater than 2 weeks ago. I did reassure her that it is very unlikely that she would be able to give anything to her either. I have given her a prescription for some Pepto-Bismol to see if this helps settle her stomach. She should keep her followup appointments with her PCP as well as her doctor at [facility] spine and sport to [place] manage her chronic pain. She verbalized understanding of these instructions. In order to obtain further information and compare any laboratory results/values, I have accessed patient records on the [employer]. This information was pertinent in my medical decision making today. Proper Personal Protective Equipment (PPE), including gloves, eye protection and masks were donned and doffed appropriately and all equipment cleaned using approved technique with germicidal disposable wipes prior to and after care of this patient according to [facility] infection prevention protocols. Time On Scene with Patient: 00:53:05 [id number] Not available 05/25/2020 18:43:49 Plan of Treatment Reminders Order Date Submit Date Provider Last Modified By Organization Details Last Modified Time Details Appointments None recorded. Lab None recorded. Referral None recorded. Procedures None recorded. Surgeries None recorded. Imaging None recorded. Medication Orders Pepto-Bismo l 262 mg/15 mL oral suspension 2020 021 [facility] [facility], [place], [address], 18:17:39 Patient TargetsNo targets recorded. Patient Instructions Encounter Date Encounter Id Patient Instructions Last Modified By Organization Details Last Modified Time 05/25/2020 [id number] Acute Nausea and Vomiting/Diarrhea BASIC INFORMATION Acute nausea and vomiting often start suddenly, worsen quickly, and last a few hours to 24 hours. Nausea and vomiting most often occur together, although they can occur alone. Cases of acute nausea and vomiting are often from gastrointestinal viruses such as norovirus, rotavirus and influenza. Less often it can be caused by toxins released from food that ? g oes bad? as well as some types of bacteria and parasites. Diarrhea can also occur. Your nurse practitioner will conduct a careful history to help determine if you have one of the more serious causes. The cause of your nausea and vomiting may be unknown. INSTRUCTIONS Medicines: 1) Anti-nausea: You may have been given a prescription for an anti nausea medicine such as Zofran, Phenergan or Compazine. These can be used every 6-8 hours to help prevent nausea and vomiting. They can make you sleepy, so do not drive after taking them. Be sure to read all of the drug information from the pharmacy. 2) Tylenol: Low grade fever is common with acute nausea and vomiting. You may use Tylenol, per the recommended dosing on the label, to help control fever. If you have liver disease, do not use Tylenol. Ask your DOG HANDLER how to address fever if you are concerned about Tylenol use. 3) Anti-diarrheal medicines: These are available [id number], but in some cases are not recommended and can even worsen some cases of intestinal problems. Ask your DOG HANDLER if you should use them. In children under 12, the only anti-diarrheal that should be considered is Kaopectate. Diet: 1) For the next 12-24 hours, take clear liquids only. No dairy and no caffeinated beverages. After you have not vomited for a complete hour (either with or without the help of the anti-nausea medicine), begin by taking one tablespoon of clear liquid every 15 minutes for one hour. If you are able to tolerate this, you may increase the amount to 2 tablespoons every hour for the next 2 hours. 2) Clear liquids such as gatorade, pedialyte or broth are recommended because of the electrolytes and sugars that will help replenish the losses from vomiting and diarrhea. 3) If you are able to tolerate clear liquids as instructed above, you may begin to take a bland diet. Plain pasta/noodles or toast are suggestions. If you have had diarrhea, bananas, rice and applesauce are suggested as these can help make the stools more solid. Avoid greasy, fatty or fried foods FOLLOW UP You should make an appointment to see your primary care provider within 24 hours or sooner for worsening condition as described below. If you do not have a primary care doctor, you should follow up with one [facility] the [facility]. SEEK CARE IMMEDIATELY IF: 1) You are still unable to tolerate any oral intake after 24 hours 2) You have blood in your vomit or stool 3) You develop severe abdominal pain that does not go away after an episode of vomiting or diarrhea 4) You have severe dizziness, heart palpitations or are passing out 5) You develop severe muscle cramps or weakness 6) You have not made urine in over 24 hours If you develop any new or worsening symptoms and need after hours care, please go to nearest ER and/or call 911. If you have additional concerns or develop a change in your condition between 8am-10pm, please call [facility] at [phone] to help navigate your care. [email or web address] Not available 05/25/2020 18:02:09 Reason for Referral None Reported. Medical Equipment None Reported. Allergies Allergen ID Allergen Name Allergen Category Reaction Reaction Severity Criticality Documentation Date Start Date Code Code System Note Provider Name and Address Organization Details Recorded Time 257935 Avelox medicatio n Not available Not available Not available 05/25/2020 48289 6 RxNorm SABIHABROOKLYNN LUIS NP [address] [place], [address], [place] [facility] 17:55:16 [id number] benazepri l medicatio n Not available Not available Not available 05/25/2020 14148 RxNorm SABIHA LUIS NP [address] [place], [address], [place] [facility] 17:55:58 [id number] losartan medicatio n Not available Not available Not available 05/25/2020 56202 RxNorm SABIHA LUIS NP [address] [place], [address], [place] [facility] 17:56:09 [id number] ibuprofen medicatio n Not available Not available Not available 05/25/2020 5640 RxNorm SABIHA LUIS NP [address] [place], [address], [place] [facility] 1 17:56:18 [id number] Augmentin medicatio n Not available Not available Not available 05/25/2020 84724 2 RxNorm SABIHA LUIS , DOG [facility]ER [address], [place], [place], [address], [place] [facility] 17:57:22 [id number] nifedipin e medicatio n Not available Not available Not available 05/25/2020 7417 RxNorm SABIHA LUIS , DOG [facility] [address], [place], [address], [place] [facility] 17:57:28 Medications Name Sig Start Date Stop Date Status Note LastModified by Organization Details LastModified Time delivery fee active Not Available Not Available Not Available acetaminoph en 325 mg tablet active Not Available Not Available Not Available albuterol sulfate 2.5 mg/3 mL (0.083 %) solution for nebulizatio n active Not Available Not Available Not Available trazodone 50 mg tablet active Not Available Not Available Not Available cetirizine 10 mg tablet active Not Available Not Available Not Available ketotifen 0.025 % (0.035 %) eye drops active Not Available Not Available No t Available FreeStyle Lancets 28 gauge USE BID UTD active Not Available Not Available No t Available potassium chloride ER 10 mEq tablet,exte nded release active Not Available Not Available Not Available tramadol 50 mg tablet 05/25 completed Not Available Not Available Not Available triamcinolo ne acetonide 0.1 % topical cream UM EXT AA BID active Not Available Not Available No t Available levothyroxi ne 88 mcg tablet active Not Available Not Available Not Available calcium 600 mg (as calcium carbonate 1,500 mg) tablet active Not Available Not Available Not Available triamcinolo ne acetonide 0.025 % topical cream active Not Available Not Available Not Available baclofen 10 mg tablet TK 1 T PO TID active Not Available Not Available No t Available amlodipine 10 mg tablet active Not Available Not Available Not Available cyanocobala min (vit B-12) 1,000 mcg/mL injection solution active Not Available Not Available Not Available metformin 1,000 mg tablet active Not Available Not Available Not Available montelukast 10 mg tablet active Not Available Not Available Not Available ammonium lactate 12 % topical cream MU AA BID AND ESPECIALL Y WITHIN 3 MIN OF BATHING active Not Available Not Available No t Available albuterol sulfate HFA 90 mcg/actuati on aerosol inhaler active Not Available Not Available Not Available fluticasone propionate 50 mcg/actuati on nasal spray,suspe nsion active Not Available Not Available Not Available loratadine 10 mg tablet active Not Available Not Available Not Available oxycodone 5 mg tablet 05/25 completed Not Available Not Available Not Available Stomach Relief 262 mg/15 mL oral suspension Take 15 mL 5 times a day by oral route as needed. active Not Available Not Available No t Available Mapap Arthritis Pain 650 mg tablet,exte nded release TK 1 T PO Q 8 H PRF PAIN FOR UP TO 10 DAYS active Not Available Not Available No t Available Alcohol Prep Pads MU TOPICALLY BID active Not Available Not Available No t Available duloxetine 30 mg capsule,del ayed release active Not Available Not Available Not Available pregabalin 50 mg capsule active Not Available Not Available Not Available pregabalin 100 mg capsule active Not Available Not Available Not Available Advair HFA 230 mcg-21 mcg/actuati on aerosol inhaler active Not Available Not Available Not Available hydrochloro thiazide 12.5 mg tablet active Not Available Not Available Not Available FreeStyle Lite Strips active Not Available Not Available Not Available alpha lipoic acid 300 mg capsule TK 1 C PO QD active Not Available Not Available No t Available cholecalcif katharina (vitamin D3) 50 mcg (2,000 unit) tablet active Not Available Not Available Not Available Savella 12.5 mg (5)-25 mg(8)-50mg( 42) tablets in a dose pack 05/25 completed Not Available Not Available Not Available baclofen 5 mg tablet TK 1 T PO QHS PRN 05/25 completed Not Available Not Available Not Available Vitals Date Recorded Body temperature Oxygen saturation Oxygen saturation in Arterial blood by Pulse oximetry Heart rate Respiratory rate Systolic blood pressure Diastolic blood pressure Provider Name and Address Organization Details Last Updated DateTime 99 [degF] 96 % 96 % 74 /min 20 /min 152 mm[Hg] 88 mm[Hg] Not Available [facility] 18:06:14 Social History Question Answer Notes LastModified by Organizat ion Details LastModified Time Tobacco Smoking Status Never Smoker SABIHA LUIS NP [address], [place], [address], [place] [facility] 05/25/2020 18:01:08 Do You Have An Advance Directive? No [email or web address] Information not available 05/25/2020 What Is Your Code Status? Full Code Information not available 05/25/2020 Within The Past 12 Months, Has It Happened That The Food You Bought Just Didn't Last And You Didn't Have Money To Get More. No [email or web address] Information not available 05/25/2020 Within The Past 12 Months, Have You Worried That Your Food Would Run Out Before You Got Money To Buy More. No [email or web address] Information not available 05/25/2020 Fall Risk: Do You Feel Unsteady When Standing Or Walking? No [email or web address] Information not available 05/25/2020 We Know That How And When People Interact With Friends And Family Can Be Very Different From Person To Person. How Often Do You Have The Opportunity To See Or Talk To People That You Care About And Feel Close To? (Ex: Talking To Friends On The Phone Or Visiting Friends Or Family Or Going To [employer] Or Club Meetings) 3 Or 4 Times Per Week [email or web address] Information not available 05/25/2020 We Know From Many Of Our Patients That Covering All Of Their Costs Can Be Difficult At Times. This Can Cause Stress And Impact Health. In The Past Year, Have You Been Unable To Get Any Of The Following When It Was Really Needed? No [email or web address] Information not available 05/25/2020 What Is Your Housing Situation Today? I Have Housing [email or web address] Information not available 05/25/2020 Would You Like Help Connecting To Resources? None [email or web address] Information not available 05/25/2020 Sex: Unknown Functional Status None recorded. Mental Status None recorded. Family History Relationship Description Onset Age of this Age Resolved Age Notes LastModified by Organization Details LastModified Time Mother Diabetes mellitus Not available 18:01:48 Father Malignant neoplastic disease [email or web address] Not available 18:01:59 Medical History Condition Response Coronary Artery Disease N Depression N COPD N Cancer Y Stroke N High Cholesterol N Kidney Disease N Asthma Y Pulmonary Embolism N Hypertension Y Gynecological HistoryNo gynecological history recorded. Obstetrics History GPAL:G 0 P 0 0 0 0 Past Encounters Encounter ID Performer Location Encounter Start Date Encounter Closed Date Diagnosis/Indication Diagnosis SNOMED-CT Code Diagnosis ICD10 Code Diagnosis Note [id number] [facility] [address] [facility] [place] [address] 05/25/2020 17:43:31 05/29/2020 23:27:04 Nausea 512115078 R11.0 Anxiety 59407045 F41.9 Health Concerns Section Related Observation LastModified by Organization Detai ls LastModified Time None Recorded Concern Status LastModified by Organization Details LastModified Time None Recorded Advance Directives Directive N: Payers Encounter Date Sequence Insurance Name Policy Number Policy Payton Covered Member ID Payton Member ID Guarantor Name 05/25/2020 2 [place] [facility] Jessica Eldridge [id number] Jessica Eldridge 05/25/[address] [facility] - DOS PRIOR TO 2022 - DUAL ELIGIBLE (MEDICARE REPLACEMENT/AD VANTAGE - HMO) Jessica Eldridge [id number] Jessica Eldridge Notes Date Note Type Note Provider Name and Address Organization Details Recorded Time 05/25/2020 text/html This is a 65-year-old female , she is a new patient who [facility]. She has a medical history significant for asthma, history of endometrial cancer, hypertension, hypothyroidism and fibromyalgia. She contracts [facility] the suggestion of her qa tester through [facility]. The patient reports that she follows with a doctor from [facility] for pain control. She recently was changed from Lyrica to Cymbalta, this medication change causing significant nausea for her. She was then started on Savella which also caused her to have nausea so she stopped these medications altogether. She tells me that she had contacted Dr. Chavis's office to report this and was told that her symptoms could be consistent with COVID since she was reporting a sensation of chills with the nausea. The patient has received both COVID-19 vaccinations with her second dose greater than 2 weeks ago. She tells me that she has had chills for about 5 days and has been taking Tylenol. She reports the medication changes started about a week ago. She tells me she has had some nausea for the past 3 days and has not been eating well but she has been able to tolerate 2 meals today that consisted of fish, sweet potatoes and vegetables. No recent sick contacts. No diarrhea. SABIHA LUIS NP [address], [place], [address], [place] [facility] 05/25/2020 18:53:53 OBGyn Episode No OBEpisode recorded.
--- OUTSIDE RECORDS SUMMARY | 2024-05-19 13:21 | XMS_ITS | Encounter Summary ---
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 Name Role Phone Odette Mariano MD Primary Care Provider [phone] Reason for Visit * Reason Comments Annual Exam Medicare Wellness Ch susi Encounter Details Date Type Department Care Team ([facility] st Contact Info) Description 05/17/2024 8:30 AM EDT Office Visit Internal Medicine - [place] [address] [place] [id number] Odette Mariano MD [address] [facility] [address] [place] [address] Type 2 diabetes mellitus without complication, without long-term current use of insulin (CMS/HCC V24, CMS/HCC V28) (Primary Dx); Encounter for subsequent annual wellness visit (AWV) in Medicare patient; Depression, unspecified depression type; Hypothyroidism, unspecified type Social History Tobacco Use Types Packs/Day Years Used Date Smoking Tobacco: Never Smokeless Tobacco: Never Tobacco Cessation:Counseling Given: Not Answered Alcohol Use Standard Drinks/Week Comments Never 0 (1 standard drink = 0.6 oz pur e alcohol) Comments Unknown Sex and Gender Information Value Date Recorded Sex Assigned at Not on file Legal Sex Female 4:17 AM EST Gender Identity Not on file Sexual Orientation Not on file documented as of this encounter Last Filed Vital Signs Vital Sign Reading Time Taken Comments Blood Pressure 134/88 05/17/2024 8:38 AM EDT Pulse 59 05/17/2024 8:38 AM EDT Temperature 36.2 ??C (97.1 ??F) 05/17/2024 8:38 AM ED T Respiratory Rate - - Oxygen Saturation 98% 05/17/2024 8:38 AM EDT Inhaled Oxygen Concentration - - Weight 71.7 kg (158 lb) 05/17/2024 8:38 AM EDT Height - - Body Mass Index 31.89 05/03/2024 8:09 AM EDT documented in this encounter Ordered Prescriptions Prescription Sig Dispense Quantity Refills Last Filled Start Date End Date benzonatate (TESSALON) 200 mg capsule Take 1 capsule (200 mg total) by mouth 3 (three) times a day if needed for cough. Do not crush or chew. 21 capsule 05/17/2024 atorvastatin (LIPITOR) 10 mg tablet Take 1 tablet (10 mg total) by mouth at bedtime. 90 tablet 3 05/17/2024 documented in this encounter Progress Notes * Odette Mariano MD - 05/17/2024 8:30 AM EDTAssociated Problem(s): Depression Orders: Comprehensive metabolic panel; Future Thyroid stimulating hormone with reflex to free t4 and free t3; Future Hemoglobin A1c; Future * Odette Mariano MD - 05/17/2024 8:30 AM EDTAssociated Problem(s): Type 2 diabetes mellitus without complication (CMS/[facility] V24, [facility] V28) Orders: Comprehensive metabolic panel; Future Thyroid stimulating hormone with reflex to free t4 and free t3; Future Hemoglobin A1c; Future * Odette Mariano MD - 05/17/2024 8:30 AM EDTAssociated Problem(s): Hypothyroidism Orders: Comprehensive metabolic panel; Future Thyroid stimulating hormone with reflex to free t4 and free t3; Future Hemoglobin A1c; Future * Odette Mariano MD - 05/17/2024 8:30 AM EDT Images from the original note were not included. CHIEF COMPLAINT: Annual Exam (Medicare Wellness Check ) IDENTIFIER: Jessica Eldridge is a 69 y.o. old female. HPI::Diabetes, hypertension, hypothyroidism, hyperlipidemia, obesity, recurrent sciatica Patient is doing well, no significant new complaints today, ROS: GENERAL: No malaise, significant weight loss or fever NECK: No lumps, goiter, pain or significant neck swelling RESPIRATORY: No cough, wheezing or shortness of breath CARDIOVASCULAR: No chest pain, leg swelling or palpitations GI: No abdominal discomfort, blood in stools or black stools PSYCH: No sleep disturbance, mood disorder or recent psychosocial stressors. PAST MEDICAL HISTORY: Patient Active Problem List Diagnosis Date Noted Class 1 obesity with body mass index (BMI) of 33.0 to 33.9 in adult 11/12/2023 Shortness of breath 10/25/2022 Cervical disc herniation 06/19/2021 Eczema 06/19/2021 Trigeminal neuralgia 06/19/2021 Rash 12/25/2020 Abdominal pain 10/09/2020 Colon polyp 10/09/2020 Hypomagnesemia 06/13/2020 B12 deficiency 11/01/2019 Leg cramps 11/01/2019 Allergic rhinitis 06/21/2019 Epistaxis 06/21/2019 Back pain of lumbar region with sciatica 12/24/2017 Elevated LFTs 10/29/2017 Hypothyroidism 10/29/2017 Type 2 diabetes mellitus without complication 10/29/2017 Osteopenia 06/23/2017 Hypertension 06/11/2017 Diverticulosis 05/14/2017 Anxiety 01/22/2017 Asthma 09/05/2016 Depression 09/05/2016 Fibromyalgia 09/05/2016 Gastroesophageal reflux disease without esophagitis 09/05/2016 Seasonal allergies 03/06/2016 Vitamin D deficiency 03/06/2016 Umbilical hernia 01/14/2016 Past Surgical History: Procedure Laterality Date CHOLECYSTECTOMY PROCEDURE: HISTORICAL CHOLECYSTECTOMY HYSTERECTOMY PROCEDURE: HISTORICAL HYSTERECTOMY TUBAL LIGATION PROCEDURE: HISTORICAL TUBAL LIGATION SOCIAL HISTORY: Social History Tobacco Use Smoking status: Never Smokeless tobacco: Never Substance Use Topics Alcohol use: Never FAMILY HISTORY: No family history on file. No family status information on file. MEDICATIONS DISCONTINUED/REORDERED: Medications Discontinued During This Encounter Medication Reason polyvinyl alcohol (ARTIFICIAL TEARS) 1.4 % ophthalmic solution topiramate (TOPAMAX) 50 mg tablet meloxicam (MOBIC) 15 mg tablet magnesium oxide (MAG-OX) 400 mg (241.3 elemental magnesium) tablet lidocaine 3 % cream glipiZIDE (GLUCOTROL XL) 2.5 mg 24 hr tablet Dose adjustment riuimdzlzqf-ammpjkpkuvmt-ykcsiyvoew (Trelegy Ellipta) 100-62.5-25 mcg inhaler calcium carbonate-vit D3-min 600 mg calcium- 400 unit tablet Duplicate order atorvastatin (LIPITOR) 10 mg tablet Reorder glipiZIDE (GLUCOTROL) 5 mg tablet Duplicate order methocarbamoL (ROBAXIN) 750 mg tablet vits A,C,E/lutein/minerals (OCUVITE WITH LUTEIN ORAL) ACTIVE MEDICATIONS: Outpatient Medications Marked as Taking for the 05/17/24 encounter (Office Visit) with Odette Mariano MD Medication Sig Dispense Refill acetaminophen (TYLENOL) 325 mg tablet Take 1 tablet (325 mg total) by mouth every 6 (six) hours if needed for mild pain. for pain 90 tablet 2 albuterol 2.5 mg /3 mL (0.083 %) nebulizer solution TAKE 1 VIAL VIA NEBULIZATION EVERY 4 HOURS NEEDED FOR WHEEZING FOR UP TO 180 DAYS alcohol swabs pads, medicated USE TOPICALLY TWICE A DAY 60 each 2 alcohol swabs pads, medicated USE TOPICALLY TWICE A DAY 100 each 2 ammonium lactate (AMLACTIN) 12 % cream MU AA BID AND ESPECIALLY WITHIN 3 MIN OF BATHING atorvastatin (LIPITOR) 10 mg tablet Take 1 tablet (10 mg total) by mouth at bedtime. 90 tablet 3 azelastine (ASTELIN) 137 mcg (0.1 %) nasal spray Use in each nostril as directed. 2 Sprays by Each Nare route 2 times daily. - Each Nare calcium carbonate-vitamin D 600 mg-10 mcg (400 unit) per tablet TAKE 1 TABLET BY MOUTH TWICE DAILY 60 tablet 3 cetirizine (ZyrTEC) 10 mg tablet Take 1 Tablet by mouth at bedtime cyclobenzaprine (FLEXERIL) 5 mg tablet Take 1 tablet (5 mg total) by mouth at bedtime. 30 tablet 3 fluticasone propionate (FLONASE) 50 mcg/actuation nasal spray Administer 1 spray into each nostril 2 (two) times a day. 16 g 3 INCONTINENCE PAD, LINER, DISP [facility] [place] Disposable ([employer] Incontinence Pads) [facility] [place] si Each by Does not apply route 3 times daily ketotifen (Eye Itch Relief) 0.025 % ophthalmic solution labetaloL (NORMODYNE) 200 mg tablet Take 1 Tablet by mouth 2 times daily. lancets ([employer] Plus Lancet) 30 gauge USE DIRECTED TO CHECK BLOOD SUGAR TWICE A DAY 2 each 1 levothyroxine (SYNTHROID, LEVOTHROID) 100 mcg tablet TAKE 1 TABLET BY MOUTH DAILY. 30 tablet 3 loratadine (CLARITIN) 10 mg tablet Take 1 Tablet by mouth every morning. As needed magnesium oxide (MAG-OX) 400 mg magnesium tablet Take 1 Tablet by mouth 2 times daily. [facility] 1 Each by Does not apply route continuous. omeprazole (PriLOSEC) [address] capsule TAKE 1 CAPSULE BY MOUTH DAILY [employer] Ultra Test test strip USE TO TEST BLOOD SUGAR TWICE DAILY. 50 strip 0 spironolactone (ALDACTONE) 50 mg tablet TAKE 1 TABLET BY MOUTH DAILY. 30 tablet 3 tacrolimus (PROTOPIC) 0.1 % ointment TENS UNITS [facility] Nerve Stimulator (TENS Therapy Pain Relief) Device Sig - Route: by Does not apply route. - Does not apply traZODone (DESYREL) 100 mg tablet TAKE 1 TABLET BY MOUTH DAILY AT BEDTIME. 30 tablet 3 triamcinolone (KENALOG) 0.1 % ointment [DISCONTINUED] atorvastatin (LIPITOR) 10 mg tablet Take 1 tablet (10 mg total) by mouth 1 (one) time each day. 15 tablet 1 [DISCONTINUED] glipiZIDE (GLUCOTROL) 5 mg tablet [DISCONTINUED] methocarbamoL (ROBAXIN) 750 mg tablet Take 1 Tablet by mouth 3 times daily. prn ALLERGIES: Allergies Allergen Reactions Avelox [Moxifloxacin] Shortness of breath and Wheezing Benazepril Anaphylaxis Augmentin [Amoxicillin-Pot Clavulanate] House Dust Hydralazine Ibuprofen Swelling/Edema Losartan Other Lyrica [Pregabalin] Reaction Type: Side Effect Maple Flavor Other reaction(s): Other Severe Nickel Nickel/metal Nifedipine Nut - Unspecified Pollen Extracts Prednisone PHYSICAL EXAM: Visit Vitals BP 134/88 (BP Location: Left arm, Patient Position: Sitting, BP Cuff Size: Large adult) Pulse 59 Temp 36.2 ??C (97.1 ??F) (Temporal) Wt 71.7 kg (158 lb) SpO2 98% BMI 31.89 kg/m?? Smoking Status Never BSA 1.67 m?? APPEARANCE: Alert and in no acute distress NECK: Neck supple, no adenopathy, thyroid symmetric and of normal size HEART: RRR with normal S1 and S2, no murmurs, no gallops, no JVD appreciated LUNG: clear to auscultation ABDOMEN: Bowel sounds normoactive, no bruits, soft, non-tender, without organomegaly or palpable masses SKIN: Skin color, texture, turgor normal. No rashes or lesions. LABS/IMAGING: No visits with results within 6 Month(s) from this visit. Latest known visit with results is: Abstract on 11/12/2023 Component Date Value Ref Range Status Medicare Annual Wellness Visit 06/09/2023 abstracted Final Depression Screening 06/09/2023 abstracted Final Annual BMP Blood Test 06/18/2023 abstracted Final Colonoscopy 12/03/2020 no interpretation,abstracted Final Diabetes: Annual Retina Eye Exam 04/07/2023 abstracted Final Urine Albumin Creatinine Ratio 06/01/2019 abstracted Final LDL/HDL Ratio 06/18/2023 3 0 - 4 Final Triglycerides 06/18/2023 80 0 - 150 mg/dL Final Cholesterol 06/18/2023 159 0 - 200 mg/dL Final HDL 06/18/2023 55 >=40 mg/dL Final LDL Cholesterol 06/18/2023 88 0 - 100 mg/dL Final Hemoglobin A1C 10/27/2023 6.7 (A) <=6.5 % Final Medication and lab orders: Orders Placed This Encounter Procedures Comprehensive metabolic panel Thyroid stimulating hormone with reflex to free t4 and free t3 Hemoglobin A1c Other orders: None IMPRESSION: 1. Type 2 diabetes mellitus without complication, without long-term current use of insulin 2. Encounter for subsequent annual wellness visit (AWV) in Medicare patient 3. Depression, unspecified depression type 4. Hypothyroidism, unspecified type PLAN: Asthma-- Following pulmonology. Continue the inhalers.stable Chronic pain both shoulders--recently had MRI of the both shoulders, following [place] [facility] Bilateral carpal tunnel--recently underwent surgical repair of the right carpal tunnel, recovering well Hypothyroidism--continue levothyroxine, TSH ordered. Diabetes--continue glipizide , under very good control, A1c ordered Follow-up with physiatry, getting back injections Colonoscopy--11/2020--5 years Up-to-date with mammogram We will get back to the patient with lab results Follow-up in 5 months or sooner as needed Odette Mariano MD on 05/17/2024 at 10:19 AM EDT Medicare Annual Wellness Visit Note Patient Name: Jessica Eldridge Date of : 1955 Race: Unknown Ethnicity: Not Hispan/Lat Date of Service: 05/17/2024 Patient Care Team: Odette Mariano MD as PCP - General (Internal Medicine) Patient does not currently have/use medical supplier. Jessica is a 69 y.o. female presenting for Annual Exam (Medicare Wellness Check ) HPI Patient Active Problem List Diagnosis Abdominal pain Allergic rhinitis Anxiety Asthma B12 deficiency Back pain of lumbar region with sciatica Cervical disc herniation Colon polyp Depression Diverticulosis Eczema Elevated LFTs Epistaxis Fibromyalgia Gastroesophageal reflux disease without esophagitis Hypertension Hypomagnesemia Hypothyroidism Leg cramps Osteopenia Rash Seasonal allergies Shortness of breath Trigeminal neuralgia Type 2 diabetes mellitus without complication Umbilical hernia Vitamin D deficiency Class 1 obesity with body mass index (BMI) of 33.0 to 33.9 in adult Allergies Allergen Reactions Avelox [Moxifloxacin] Shortness of breath and Wheezing Benazepril Anaphylaxis Augmentin [Amoxicillin-Pot Clavulanate] House Dust Hydralazine Ibuprofen Swelling/Edema Losartan Other Lyrica [Pregabalin] Reaction Type: Side Effect Maple Flavor Other reaction(s): Other Severe Nickel Nickel/metal Nifedipine Nut - Unspecified Pollen Extracts Prednisone Current Outpatient Medications Medication Instructions acetaminophen (TYLENOL) 325 mg, oral, Every 6 hours PRN, for pain albuterol 2.5 mg /3 mL (0.083 %) nebulizer solution TAKE 1 VIAL VIA NEBULIZATION EVERY 4 HOURS NEEDED FOR WHEEZING FOR UP TO 180 DAYS albuterol HFA (PROAIR HFA ; PROVENTIL HFA ; VENTOLIN HFA) 90 mcg/actuation inhaler Inhale 1 Puff into the lungs daily. alcohol swabs (Alcohol Prep Pads) pads, medicated USE TOPICALLY TWICE A DAY alcohol swabs pads, medicated GNP Alcohol Swabs 70 % Pads Sig: USE TOPICALLY TWICE A DAY alcohol swabs pads, medicated USE TOPICALLY TWICE A DAY alcohol swabs pads, medicated USE TOPICALLY TWICE A DAY ammonium lactate (AMLACTIN) 12 % cream MU AA BID AND ESPECIALLY WITHIN 3 MIN OF BATHING atorvastatin (LIPITOR) 10 mg, oral, Nightly azelastine (ASTELIN) 137 mcg (0.1 %) nasal spray Use in each nostril as directed. 2 Sprays by Each Nare route 2 times daily. - Each Nare benzonatate (TESSALON) 200 mg, oral, 3 times daily PRN, Do not crush or chew. blood-glucose meter kit 1 Kit by Does not apply route 2 times daily. Check blood sugar twice daily calcium carbonate-vitamin D 600 mg-10 mcg (400 unit) per tablet 1 tablet, oral, 2 times daily cetirizine (ZyrTEC) 10 mg tablet Take 1 Tablet by mouth at bedtime cyclobenzaprine (FLEXERIL) 5 mg, oral, Nightly diclofenac (VOLTAREN) 1 % topical gel Apply 1 Squirt topically 2 times daily. diclofenac (VOLTAREN) 1 % topical gel APPLY 1 SQUIRT TOPICALLY TWICE A DAY EPINEPHrine (EpiPen 2-Dexter) 0.3 mg/0.3 mL injection Inject 0.3 mg into the skin as needed for Other (allergic reaction). fluticasone propionate (FLONASE) 50 mcg/actuation nasal spray 1 spray, Each Nostril, 2 times daily INCONTINENCE PAD, LINER, DISP [facility] [place] Disposable ([facility] Incontinence Pads) [facility] [place] [place] si Each by Does not apply route 3 times daily ketotifen (Eye Itch Relief) 0.025 % ophthalmic solution No dose, route, or frequency recorded. labetaloL (NORMODYNE) 200 mg tablet Take 1 Tablet by mouth 2 times daily. lancets ([employer] Plus Lancet) 30 gauge USE DIRECTED TO CHECK BLOOD SUGAR TWICE A DAY levothyroxine (SYNTHROID, LEVOTHROID) 100 mcg, oral, Daily loratadine (CLARITIN) 10 mg tablet Take 1 Tablet by mouth every morning. As needed magnesium oxide (MAG-OX) 400 mg magnesium tablet Take 1 Tablet by mouth 2 times daily. miscellaneous medical supply mis 1 Each by Does not apply route continuous. omeprazole (PriLOSEC) [address] capsule TAKE 1 CAPSULE BY MOUTH DAILY OneTouch Ultra Test test strip USE TO TEST BLOOD SUGAR TWICE DAILY. ONETOUCH ULTRASOFT LANCETS [facility] 1 Kit by Does not apply route 2 times daily. Check blood sugar twice daily - Does not apply spironolactone (ALDACTONE) 50 mg tablet TAKE 1 TABLET BY MOUTH DAILY. tacrolimus (PROTOPIC) 0.1 % ointment TENS UNITS [facility] Nerve Stimulator (TENS Therapy Pain Relief) Device Sig - Route: by Does not apply route. - Does not apply traZODone (DESYREL) 100 mg, oral, at bedtime triamcinolone (KENALOG) 0.1 % ointment Past Medical History: Diagnosis Date Anxiety 01/22/2017 DX:Anxiety Asthma 09/05/2016 DX:Asthma Back pain of lumbar region with sciatica 12/24/2017 DX:Back pain of lumbar region with sciatica Cervical disc herniation 06/19/2021 DX:Cervical disc herniation; COMMENT: As well as lumbar region. Depression 09/05/2016 DX:Depression Diverticulosis 05/14/2017 DX:Diverticulosis Eczema 06/19/2021 DX:Eczema; COMMENT: Saw Allergy 12/21/2020 and 03/26/2021 for itchy skin rash, most likely eczema. Elevated LFTs 10/29/2017 DX:Elevated LFTs Fibromyalgia 09/05/2016 DX:Fibromyalgia GERD (gastroesophageal reflux disease) 09/05/2016 DX:GERD (gastroesophageal reflux disease) History of positive PPD 02/18/2016 DX:History of positive PPD Hypertension 06/11/2017 DX:Hypertension Hypothyroidism 10/29/2017 DX:Hypothyroidism Osteopenia 06/23/2017 DX:Osteopenia Seasonal allergies 03/06/2016 DX:Seasonal allergies Trigeminal neuralgia 06/19/2021 DX:Trigeminal neuralgia; COMMENT: R side of face. Type 2 diabetes mellitus without complication 10/29/2017 DX:Type 2 diabetes mellitus without complication (HCC) Umbilical hernia 01/14/2016 DX:Umbilical hernia Vitamin D deficiency 03/06/2016 DX:Vitamin D deficiency Past Surgical History: Procedure Laterality Date CHOLECYSTECTOMY PROCEDURE: HISTORICAL CHOLECYSTECTOMY HYSTERECTOMY PROCEDURE: HISTORICAL HYSTERECTOMY TUBAL LIGATION PROCEDURE: HISTORICAL TUBAL LIGATION Social History Tobacco Use Smoking status: Never Smokeless tobacco: Never Substance Use Topics Alcohol use: Never Drug use: No No family history on file. Immunization History Administered Date(s) Administered COVID-19 (Pfizer/Comirnaty) 12yo and older 10/29/2022, 10/16/2023 Moderna SARS-CoV-2 COVID-19, mRNA, LNP-S, preservative free 06/18/2022 Pfizer (ages 12 & older) SARS-CoV-2 COVID-19, mRNA, LNP-S, christian-sucrose, preservative free 05/22/2021 Pfizer SARS-CoV-2 COVID-19, mRNA, LNP-S, preservative free 03/20/2020, 04/10/2020, 11/08/2020 Pneumococcal conjugate 20 valent (Prevnar 20, PCV 20) 2mo and older 09/15/2022 Pneumococcal polysaccharide 23 valent (Pneumovax 23) 2yo and older 11/18/2019 Tdap Tetanus diptheria acellular pertussis (Boostrix; Adacel) 7yo and older 02/28/2015 Health Maintenance Topic Date Due Diabetes: Annual Foot Exam Never done RSV Immunization Adult Patients (1 - Risk 60-74 years 1-dose series) Never done Zoster Vaccines (2 of 2) 11/17/2017 Hepatitis C Screening Never done Osteoporosis Screening (Bone Density Screening) Never done Social Influencers of Health Screening Never done Diabetes: Annual Urine Albumin-Creatinine Ratio (uACR) 01/19/2022 Diabetes: Annual Retina Eye Exam 04/07/2024 Diabetes: Blood Sugar Control Test (HGBA1C) 04/25/2024 Depression Screening 06/08/2024 Medicare Annual Wellness Visit 06/08/2024 Diabetes: Annual GFR (Glomerular Filtration Rate) 06/17/2024 Hypertension/CHF/CAD Annual BMP Blood Test 06/17/2024 Falls Risk Assessment 05/17/2025 Breast Cancer Screening 07/19/2025 Colorectal Cancer Screening: Colonoscopy 12/03/2025 Cholesterol Screening (Lipid Panel) 06/17/2028 DTaP,Tdap,and Td Vaccines (3 - Td or Tdap) 08/11/2030 Influenza Vaccine Completed Pneumococcal Vaccine: 50+ Years Completed COVID-19 Vaccine Completed HIB Vaccines Aged Out Hepatitis B Vaccines Aged Out IPV Vaccines Aged Out Hepatitis A Vaccines Aged Out MMR Vaccines Aged Out Varicella Vaccines Aged Out Meningococcal ACWY Vaccine Aged Out Meningococcal B Vaccine Aged Out HPV Vaccines Aged Out RSV Immunization Patients Under 20 months Aged Out Hospitalization in the last year: Has not been hospitalized in the past 12 months. Cognitive Function Assessment: Cognitive screening performed. Mini COG Clock Drawing Test: Normal Word Recall: Two Words Mini Cog Score: 4 Mini Cog Results: Negative screen for dementia Fall Screening: Have you fallen in the past year? no. Are you worried about falling? yes. . Depression Screening Over the last 2 weeks, how often have you been bothered by little interest or pleasure in doing things?: Not at all Over the last 2 weeks, how often have you been bothered by feeling down, depressed, or hopeless?: Several days Depression Risk: 1 PHQ9 Full Set of Questions Over the last 2 weeks, how often have you been bothered by little interest or pleasure in doing things?: Not at all Over the last 2 weeks, how often have you been bothered by feeling down, depressed, or hopeless?: Several days Depression Risk Score NEW: 1 Functional Ability and Level of Safety Review Health Status: In general, the patient reports health as: good In general, patient reports life as: good Patient reports sleep pattern as: up all night Have you seen a dentist in the last year?: Yes Activity of Daily Living (ADLs): Do you need help from others for your personal care such as eating, dressing, toileting, or gettingaround the house?: Yes Do you experience incontinence?: Yes Instrumental Activities of Daily Living (IADLs): Do you need help with using the telephone?: No Do you need help with shopping?: Yes Do you need help with food preparation?: Yes Do you need help with housekeeping?: Yes Do you need help with laundry?: Yes Do you need help handling finances?: Yes Do you drive?: No Do you manage your own medication?: Yes, independent with pre pour Physical Activity: Do you exercise for about 20 minutes or more three days a week?: Yes, sometimes Nutritional Assessment: Do you eat a balanced diet including daily serving of fruits, vegetables, and whole grains?: Yes, always Sexual Health: Have you been bothered by sexual problems: No Review of Systems Objective BP 134/88 (BP Location: Left arm, Patient Position: Sitting, BP Cuff Size: Large adult) Pulse 59 Temp 36.2 ??C (97.1 ??F) (Temporal) Wt 71.7 kg (158 lb) BMI 31.89 kg/m?? SpO2: 98 % Hearing: No data recorded Vision Screening: Required for Medicare Initial Preventative Physical Exam (IPPE) No data recorded Physical Exam Patient presented today for an Subsequent Medicare Wellness Visit with management of chronic condition(s). Assessment & Plan Encounter for subsequent annual wellness visit (AWV) in Medicare patient Orders: Comprehensive metabolic panel; Future Thyroid stimulating hormone with reflex to free t4 and free t3; Future Hemoglobin A1c; Future Depression, unspecified depression type Orders: Comprehensive metabolic panel; Future Thyroid stimulating hormone with reflex to free t4 and free t3; Future Hemoglobin A1c; Future Type 2 diabetes mellitus without complication, without long-term current use of insulin Orders: Comprehensive metabolic panel; Future Thyroid stimulating hormone with reflex to free t4 and free t3; Future Hemoglobin A1c; Future Hypothyroidism, unspecified type Orders: Comprehensive metabolic panel; Future Thyroid stimulating hormone with reflex to free t4 and free t3; Future Hemoglobin A1c; Future Risk Assessments: Body mass index is 31.89 kg/m??. The BMI is above average. The patient received dietary education and exercise education because they have an above normal BMI. Fall Risk: Have you fallen in the past year? no. Are you worried about falling? yes. Discussed: notrushing through tasks Depression Risk Score NEW: 1 Depression plan: Screen was negative Pain Medication: Patient does not take any opioid medications Advance Care Planning Advance care planning is the process of planning for future medical care in case you are unable to make your own medical decisions. It involves choosing a health care underwriting service representative and reviewing future health care directives. The patient Advance Directives: does not have advance directives or surrogate decision maker.. Advance directives reviewed and/or discussed: Patient is not interested in discussing advance care planning or health care agent at this time. Health Maintenance Due Topic Date Due Diabetes: Annual Foot Exam Never done RSV Immunization Adult Patients (1 - Risk 60-74 years 1-dose series) Never done Zoster Vaccines (2 of 2) 11/17/2017 Hepatitis C Screening Never done Osteoporosis Screening (Bone Density Screening) Never done Social Influencers of Health Screening Never done Diabetes: Annual Urine Albumin-Creatinine Ratio (uACR) 01/19/2022 Diabetes: Annual Retina Eye Exam 04/07/2024 Diabetes: Blood Sugar Control Test (HGBA1C) 04/25/2024 Depression Screening 06/08/2024 Medicare Annual Wellness Visit 06/08/2024 The following vaccine(s) were recommended: Vaccines Recommended: Patient up to date on all vaccines Patient Instructions (the written plan) as discussed and documented in our visit today. Odette Mariano MD INTERNAL MEDICINE - [place] [address] [phone] Dept: [phone] Dept documented in this encounter Plan of Treatment Upcoming Encounters Date Type Department Care Team ([facility] st Contact Info) Description 06/21/2024 8:30 AM EDT Office Visit Pulmonolgy [facility] [address] [phone] Samantha Almeida NP [address] [address] 07/06/2024 9:00 AM EDT Office Visit Orthopedic Surgery [facility] [address] [phone] Israel Byrd DPVidal [address] [address] 10/04/2024 8:30 AM EDT Office Visit Internal Medicine - [place] [address] [phone] Odette Mariano MD [address] [phone] Scheduled Orders Name Type Priority Associated Diagnoses Orde r Schedule Comprehensive metabolic panel Lab Routine Encounter for subsequent annual wellness visit (AWV) in Medicare patient Depression, unspecified depression type Type 2 diabetes mellitus without complication, without long-term current use of insulin ([facility] V24, [facility] V28) Hypothyroidism, unspecified type 1 Occurrences starting 05/17/2024 until 05/17/2025 Thyroid stimulating hormone with reflex to free t4 and free t3 Lab Routine Encounter for subsequent annual wellness visit (AWV) in Medicare patient Depression, unspecified depression type Type 2 diabetes mellitus without complication, without long-term current use of insulin ([facility] V24, [facility] V28) Hypothyroidism, unspecified type 1 Occurrences starting 05/17/2024 until 05/17/2025 Hemoglobin A1c Lab Routine Encounter for subsequent annual wellness visit (AWV) in Medicare patient Depression, unspecified depression type Type 2 diabetes mellitus without complication, without long-term current use of insulin ([facility] V24, [facility] V28) Hypothyroidism, unspecified type 1 Occurrences starting 05/17/2024 until 05/17/2025 documented as of this encounter Visit Diagnoses Diagnosis Type 2 diabetes mellitus without complication, without long-term current use of insulin ([facility] V24, [facility] V28)- Primary Encounter for subsequent annual wellness visit (AWV) in Medicare patient Depression, unspecified depression type Hypothyroidism, unspecified type documented in this encounter Discontinued Medications Medication Sig Discontinue Reason Start Date End Da te polyvinyl alcohol (ARTIFICIAL TEARS) 1.4 % ophthalmic solution 1 Drop as needed. 05/18/19 topiramate (TOPAMAX) 50 mg tablet TAKE 1 TABLET BY MOUTH DAILY 12/25/2023 05/17/2024 meloxicam (MOBIC) 15 mg tablet Take 1 Tablet by mouth daily 05/17/2024 magnesium oxide (MAG-OX) 400 mg (241.3 elemental magnesium) tablet TAKE 1 TABLET BY MOUTH TWICE DAILY. 03/15/2024 05/17/2024 lidocaine 3 % cream Apply 1 Applicator topically daily. 05/17/2024 glipiZIDE (GLUCOTROL XL) 2.5 mg 24 hr tablet Dose adjustment 06/09/2023 05/17/2024 fluticasone-umeclidini um-vilanterol (Trelegy Ellipta) 100-62.5-25 mcg inhaler 08/14/2023 05/17/2024 calcium carbonate-vit D3-min 600 mg calcium- 400 unit tablet TAKE 1 TABLET BY MOUTH DAILY Duplicate order 10/07/2017 05/17/2024 atorvastatin (LIPITOR) 10 mg tablet Take 1 tablet (10 mg total) by mouth 1 (one) time each day. Reorder 04/14/2024 05/17/2024 glipiZIDE (GLUCOTROL) 5 mg tablet Duplicate order 05/17/2024 methocarbamoL (ROBAXIN) 750 mg tablet Take 1 Tablet by mouth 3 times daily. prn 05/17/2024 vits A,C,E/lutein/minerals (OCUVITE WITH LUTEIN ORAL) Take 1 Capsule by mouth daily. 05/17/2024 documented as of this encounter Historical Medications * This list may reflect changes made after this encounter. triamcinolone (KENALOG) 0.1 % ointment 04/25/2024 tacrolimus (PROTOPIC) 0.1 % ointment 04/25/2024 ammonium lactate (AMLACTIN) 12 % cream MU AA BID AND ESPECIALLY WITHIN 3 MIN OF BATHING 04/11/2020 added in this encounter Additional Health Concerns Assessment Noted Time PHQ-9 Depression Total Score: 1 05/18/19 25 8:48 AM EDT A fall risk assessment has been complete d for the patient 05/17/2024 8:42 AM EDT documented as of this encounter Care Teams Popped Corn Oven Attendant Relationship Specialty Start Date End Date Odette Mariano MD [address] [place] [phone] PCP - General Internal Medicine 06/18/18 documented as of this encounter
--- OUTSIDE RECORDS SUMMARY | 2024-05-19 13:21 | XMS_ITS | Encounter Summary ---
Author Organization [facility] Address [address] [place] [address] Care Team Providers Care Leather Sprayer Name Role Phone Odette Mariano MD Primary Care Provider [phone] Encounter Details Date Type Department Care Team ([facility] st Contact Info) Description 05/18/2024 Telephone Internal Medicine - [place] [address] [facility] [address] [place] [phone] Sagrario Harris MA Social History Tobacco Use Types Packs/Day Years Used Date Smoking Tobacco: Never Smokeless Tobacco: Never Alcohol Use Standard Drinks/Week Comments Never 0 (1 standard drink = 0.6 oz pur e alcohol) Comments Unknown Sex and Gender Information Value Date Recorded Sex Assigned at Not on file Legal Sex Female 4:17 AM EST Gender Identity Not on file Sexual Orientation Not on file documented as of this encounter Progress Notes * Sagrario Harris MA - 05/18/2024 12:11 PM EDT Call patient to answers left a voicemail to call back need to informed the patient that the letter for Jury duty is ready to crop picker * Sagrario Harris MA - 05/18/2024 12:01 PM EDT Patient drop a Official Summons for Juror Service . Doctor Montserrat made a letter for Juror duty for patient. documented in this encounter Plan of Treatment Upcoming Encounters Date Type Department Care Team (Late st Contact Info) Description 06/21/2024 8:30 AM EDT Office Visit Pulmonolgy - [place] [address] [facility] [address] [place] [phone] Samantha Almeida NP [address] [phone] 07/06/2024 9:00 AM EDT Office Visit Orthopedic Surgery - [place] 250 [address] [facility] [address] [place] [phone] Israel Byrd DPM [address] [phone] 10/04/2024 8:30 AM EDT Office Visit Internal Medicine [facility] [address] [phone] Odette Mariano MD [address] [phone] documented as of this encounter Visit Diagnoses Not on filedocumented in this encounter Additional Health Concerns Assessment Noted Time PHQ-9 Depression Total Score: 1 05/18/19 25 8:48 AM EDT A fall risk assessment has been complete d for the patient 05/17/2024 8:42 AM EDT documented as of this encounter Care Teams Leather Sprayer Relationship Specialty Start Date End Date Odette Mariano MD [address] [phone] PCP - General Internal Medicine 06/18/18 documented as of this encounter
--- OUTSIDE RECORDS SUMMARY | 2024-05-19 13:21 | XMS_ITS | Patient Health Record ---
Author Organization [facility] Address [address] [facility] [address] [place] [address] Care Team Providers Care Systems Development Manager Name Role Phone Odette Mariano Primary Care Provider Unavailabl e Allergies Allergen (clinical drug ingredient) Drug/Non Drug Allergy documented on EMR Reaction Allergy Type Onset Date Status moxifloxacin Avelox Unknown Drug Allergy Acti ve benazepril Benazepril HCl Unknown Drug Allergy A ctive hydralazine HydrALAZINE HCl Unknown Drug Allergy Active ibuprofen Ibuprofen Unknown Drug Allergy Active losartan Losartan Potassium Unknown Drug Allergy Active Maple Flavor Unknown Drug Allergy Acti ve moxifloxacin Moxifloxacin HCl Unknown Drug Allergy Active nifedipine NIFEdipine Unknown Drug Allergy Activ e PredniSONE Unknown Drug Allergy Active Peanut-containing Dr ug Products Unknown Drug Allergy Active Pollen Pollen Unknown Allergy Active Reason For Referral No Information Medications Medication SIG (Take, Route, Frequency, Duration) Notes Start Date End Date Status Norvasc 10 MG 1 tablet Orally Once a day Active metFORMIN HCl 1000 MG 1 tablet with a meal Orally Once a day take 1 tab by mouth BID with meals Active Claritin 10 MG 1 tablet Orally Once a day Not-Taking Albuterol Sulfate 108 (90 Base) MCG/ACT 1 puff as needed Inhalation every 4 hrs inhale 1 puff into the lung daily Active Proventil take 1 vial by nebulization every 4 hours PRN for wheezing Active hydroCHLOROthiazide 12.5 MG 1 tablet in the morning Orally Once a day Active Ketotifen Fumarate 0.025 % 1 drop into affected eye Ophthalmic Twice a day Active traZODone HCl 50 MG 1 tablet at bedtime as needed Orally Once a day take 1/2 tab by mouth at bedtime Active Calcium 600 MG 1 tablet with meals Orally Twice a day take 1 tab by mouth BID Active Singulair 10 MG 1 tablet Orally Once a day Active Levothyroxine Sodium 88 MCG 1 tablet in the morning on an empty stomach Orally Once a day Active Lidocaine-Prilocaine 2.5-2.5 % apply 1 gm to each foot Externally BID PRN PAIN for 30 days Active Advair HFA 45-21 MCG/ACT 2 puffs Inhalation Twice a day inhale 2 puffs nto the lungs every 12 hours Active Calcium 600 MG 1 tablet with meals Orally Twice a day Active Vitamin D3 take 2000 mg daily Active Diclofenac Epolamine 1.3 % 1 patch to skin to most painful area Transdermal Twice a day apply 1 patch topically 2 times a day PRN Not-Taking hydrOXYzine HCl 25 MG 1 tablet as needed Orally once daily for 30 day(s) 12/24/2020 Not-Taking Tylenol 325 MG 1 tablet as needed Orally every 4 hrs take 1 tab every 6 hours PRN for pain Active Fluticasone Furoate 50 MCG/ACT 2 puffs Inhalation Once a day Active Baclofen 10 MG 1 tablet with food or milk Orally Three times a day take 1 tab 3 times daily Not-Taking EPINEPHrine 0.3 MG/0.3ML as directed Injection inject 0.3 mg/ml into the skin PRN Active Problems Problem Type SNOMED Code ICD Code Onset Dates Problem Status W/U Status Risk Notes Problem 265315645 Metabolic disord er, unspecified (E88.9) Active confirmed Problem 562016562 Polyneuropathy i n diseases classified elsewhere (G63) Active confirmed Problem [id number] Capsulitis of metatarsophalangeal (MTP) joint of right foot (M77.51) Active confirmed Problem 04830318 Type 2 diabetes mellitus with diabetic polyneuropathy, unspecified whether long term acute care registered nurse insulin use (E11.42) Active confirmed Problem Hereditary disorder of nervous system (495439040) Neuropathy, 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) Active confirmed Plan Of Treatment Pending Test Test Name Order Date INJ TENDON SHEATH/LIGAMENT/FASCIA 2020 INJ TENDON SHEATH/LIGAMENT/FASCIA 2020 INJ TENDON SHEATH/LIGAMENT/FASCIA 2020 DRAIN/INJECT, SMALL JOINT/BURSA 01/22/20 21 DRAIN/INJECT, SMALL JOINT/BURSA 05/22/19 21 DRAIN/INJECT, SMALL JOINT/BURSA 10/03/19 20 Medications Administered Medication Instructions Date of Administration Dosage Notes Dexamethasone 10/03/2019 0.5 mL Dexamethasone 04/03/2020 0.5 mL Dexamethasone 05/21/2020 0.5 mL Dexamethasone 07/02/2020 0.5 mL Dexamethasone 12/24/2020 0.5 mL Dexamethasone 01/21/2021 0.5 mL Kenalog 08/22/2019 1 mL Kenalog 10/03/2019 0.5 mL Kenalog 04/03/2020 0.5 mL Kenalog 05/21/2020 0.5 mL Kenalog 07/02/2020 0.5 mL Kenalog 12/24/2020 0.5 mL Kenalog 01/21/2021 0.5 mL Medical (General) History Medical History History ICD Code Gastro-esophageal reflux disease without esophagitis K21.9 Unspecified asthma, uncomplicated J45.90 9 Major depressive disorder, single episod e, unspecified F32.9 Anxiety disorder, unspecified F41.9 Type 2 diabetes mellitus without complic ations E11.9 Diverticulosis of intestine, part unspecified, without perforation or abscess without bleeding K57.90 Abnormal results of liver function studi es R94.5 Fibromyalgia M79.7 Personal history of other medical treatm ent Z92.89 Essential (primary) hypertension I10 Hypothyroidism, unspecified E03.9 Other specified disorders of bone densit y and structure, unspecified site M85.80 Other seasonal allergic rhinitis J30.2 Umbilical hernia without obstruction or gangrene K42.9 Vitamin D deficiency, unspecified E55.9 Lumbago with sciatica, unspecified side M54.40 Surgical History Surgery Date(Month/Year) cholecystectomy hysterectomy tubal ligation Hospitalization History Reason Date(Month/Year) hysterectomy
--- OUTSIDE RECORDS SUMMARY | 2024-05-19 13:21 | XMS_ITS | Clinical Summary ---
Author Organization 175 [facility] Address [address] [place] [address] Phone Care Team Providers Care Conservation Agent Name Role Phone Kendal Mariano MD Primary Care Provider [phone] Allergies Active Allergy Reactions Criticality Noted Date Comments Amoxicillin-Pot Clavulanate 05/06/2021 Moxifloxacin Shortness of breath,Wheezing High 01/25/2013 Benazepril Anaphylaxis High 01/25/2013 House Dust 05/06/2021 Hydralazine 02/28/2015 Ibuprofen 11/12/2023 Swelling/Edema Losartan Other 09/06/2013 Pregabalin 10/09/2020 Reaction Type: Side Effect Maple Flavor 01/25/2013 Other reaction(s): Other Severe Nickel 05/06/2021 Nickel/metal Nifedipine 02/28/2015 Nut - Unspecified 12/24/2017 Pollen Extracts 02/28/2015 Prednisone 02/28/2015 Medications miscellaneous medical supply [facility] 1 Each by Does not apply route continuous. 4 Active blood-glucose meter kit 1 Kit by Does not apply route 2 times daily. Check blood sugar twice daily 3 Active INCONTINENCE PAD, LINER, DISP [facility] Incontinence Supply Disposable ([facility] Incontinence Pads) [facility] Patient si Each by Does not apply route 3 times daily 4 Active magnesium oxide (MAG-OX) 400 mg magnesium tablet Take 1 Tablet by mouth 2 times daily. 4 Active ONETOUCH ULTRASOFT LANCETS [facility] 1 Kit by Does not apply route 2 times daily. Check blood sugar twice daily - Does not apply 4 Active albuterol 2.5 mg /3 mL (0.083 %) nebulizer solution TAKE 1 VIAL VIA NEBULIZATION EVERY 4 HOURS NEEDED FOR WHEEZING FOR UP TO 180 DAYS 4 Active albuterol HFA (PROAIR HFA ; PROVENTIL HFA ; VENTOLIN HFA) 90 mcg/actuation inhaler Inhale 1 Puff into the lungs daily. 3 Active alcohol swabs (Alcohol Prep Pads) pads, medicated USE TOPICALLY TWICE A DAY Active azelastine (ASTELIN) 137 mcg (0.1 %) nasal spray Use in each nostril as directed. 2 Sprays by Each Nare route 2 times daily. - Each Nare Active diclofenac (VOLTAREN) 1 % topical gel Apply 1 Squirt topically 2 times daily. 4 Active cetirizine (ZyrTEC) 10 mg tablet Take 1 Tablet by mouth at bedtime Active EPINEPHrine (EpiPen 2-Dexter) 0.3 mg/0.3 mL injection Inject 0.3 mg into the skin as needed for Other (allergic reaction). 1 Active ketotifen (Eye Itch Relief) 0.025 % ophthalmic solution Active alcohol swabs pads, medicated GNP Alcohol Swabs 70 % Pads Sig: USE TOPICALLY TWICE A DAY Active labetaloL (NORMODYNE) 200 mg tablet Take 1 Tablet by mouth 2 times daily. Active loratadine (CLARITIN) 10 mg tablet Take 1 Tablet by mouth every morning. As needed 8 Active TENS UNITS [facility] Nerve Stimulator (TENS Therapy Pain Relief) Device Sig - Route: by Does not apply route. - Does not apply Active omeprazole (PriLOSEC) [address] capsule TAKE 1 CAPSULE BY MOUTH DAILY 4 Active lancets (OneTouch Delica Plus Lancet) 30 gauge USE DIRECTED TO CHECK BLOOD SUGAR TWICE A DAY 2 each 1 4 Active alcohol swabs pads, medicated USE TOPICALLY TWICE A DAY 60 each 2 4 Active acetaminophen (TYLENOL) 325 mg tablet Take 1 tablet (325 mg total) by mouth every 6 (six) hours if needed for mild pain. for pain 90 tablet 2 4 Active cyclobenzaprin e (FLEXERIL) 5 mg tablet Take 1 tablet (5 mg total) by mouth at bedtime. 30 tablet 3 4 Active alcohol swabs pads, medicated USE TOPICALLY TWICE A DAY 100 each 2 5 Active OneTouch Ultra Test test strip USE TO TEST BLOOD SUGAR TWICE DAILY. 50 strip 5 Active diclofenac (VOLTAREN) 1 % topical gel APPLY 1 SQUIRT TOPICALLY TWICE A DAY 100 g 5 Active Additional Information Patient not taking.Reported on 05/17/2024 levothyroxine (SYNTHROID, LEVOTHROID) 100 mcg tablet TAKE 1 TABLET BY MOUTH DAILY. 30 tablet 3 5 Active traZODone (DESYREL) 100 mg tablet TAKE 1 TABLET BY MOUTH DAILY AT BEDTIME. 30 tablet 3 5 Active spironolactone (ALDACTONE) 50 mg tablet TAKE 1 TABLET BY MOUTH DAILY. 30 tablet 3 5 Active calcium carbonate-saravanan min D 600 mg-10 mcg (400 unit) per tablet TAKE 1 TABLET BY MOUTH TWICE DAILY 60 tablet 3 5 Active fluticasone propionate (FLONASE) 50 mcg/actuation nasal spray Administer 1 spray into each nostril 2 (two) times a day. 16 g 3 5 Active ammonium lactate (AMLACTIN) 12 % cream MU AA BID AND ESPECIALLY WITHIN 3 MIN OF BATHING 1 Active tacrolimus (PROTOPIC) 0.1 % ointment 5 Active triamcinolone (KENALOG) 0.1 % ointment 5 Active atorvastatin (LIPITOR) 10 mg tablet Take 1 tablet (10 mg total) by mouth at bedtime. 90 tablet 3 5 Active benzonatate (TESSALON) 200 mg capsule Take 1 capsule (200 mg total) by mouth 3 (three) times a day if needed for cough. Do not crush or chew. 21 capsule 5 Active vits A,C,E/lutein/m inerals (OCUVITE WITH LUTEIN ORAL) Take 1 Capsule by mouth daily. 025 Discontin ued(Expir ed) calcium carbonate-vit D3-min 600 mg calcium- 400 unit tablet TAKE 1 TABLET BY MOUTH DAILY 8 025 Discontin ued(Dupli tara order) fluticasone-um eclidinium-tanya anterol (Trelegy Ellipta) 100-62.5-25 mcg inhaler 4 025 Discontin ued(Expir ed) glipiZIDE (GLUCOTROL XL) 2.5 mg 24 hr tablet 4 025 Discontin ued(Dose adjustmen t) glipiZIDE (GLUCOTROL) 5 mg tablet Discontin ued(Dupli tara order) lidocaine 3 % cream Apply 1 Applicator topically daily. 025 Discontin ued(Expir ed) meloxicam (MOBIC) 15 mg tablet Take 1 Tablet by mouth daily Discontin ued(Expir ed) methocarbamoL (ROBAXIN) 750 mg tablet Take 1 Tablet by mouth 3 times daily. prn Discontin ued(Expir ed) polyvinyl alcohol (ARTIFICIAL TEARS) 1.4 % ophthalmic solution 1 Drop as needed. Discontin ued(Expir ed) topiramate (TOPAMAX) 50 mg tablet TAKE 1 TABLET BY MOUTH DAILY 30 tablet 2 4 025 Discontin ued(Expir ed) magnesium oxide (MAG-OX) 400 mg (241.3 elemental magnesium) tablet TAKE 1 TABLET BY MOUTH TWICE DAILY. 60 tablet 3 5 025 Discontin ued(Expir ed) atorvastatin (LIPITOR) 10 mg tablet Take 1 tablet (10 mg total) by mouth 1 (one) time each day. 15 tablet 1 5 025 Discontin ued([facility]) Hospital, Clinic, or Other Facility Administered Medication Ordered Dose Route Frequency Start Date End Date Status lidocaine (PF) (XYLOCAINE-MPF) 1 % injection 0.5 mLIndications:Planta r fascial fibromatosis .5 mL inj Once PRN Procedure 05/03/2024 05/03/2024 Ended lidocaine (PF) (XYLOCAINE-MPF) 1 % injection 0.5 mLIndications:Planta r fascial fibromatosis .5 mL inj Once PRN Procedure 05/03/2024 05/03/2024 Ended triamcinolone acetonide (KENALOG-40) 40 mg/mL injection 20 mgIndications:Planta r fascial fibromatosis 20 mg IAtc Once PRN Procedure 05/03/2024 05/03/2024 Ended triamcinolone acetonide (KENALOG-40) 40 mg/mL injection 20 mgIndications:Planta r fascial fibromatosis 20 mg IAtc Once PRN Procedure 05/03/2024 05/03/2024 Ended Active Problems Problem Noted Date Diagnosed Date Class 1 obesity with body ma ss index (BMI) of 33.0 to 33.9 in adult 11/12/2023 Shortness of breath 10/25/2022 Cervical disc herniation 06/19/2021 Overview (11/12/2023): As well as lumbar region. Eczema 06/19/2021 Overview (11/12/2023): Saw Allergy 12/21/2020 and 03/26/2021 for itchy skin rash, most likely eczema. Trigeminal neuralgia 06/19/2021 Overview (11/12/2023): R side of face. Rash 12/25/2020 Abdominal pain 10/09/2020 Colon polyp 10/09/2020 Hypomagnesemia 06/13/2020 B12 deficiency 11/01/2019 Leg cramps 11/01/2019 Allergic rhinitis 06/21/2019 Epistaxis 06/21/2019 Back pain of lumbar region with sciatica 018 Elevated LFTs 10/29/2017 Hypothyroidism 10/29/2017 Assessment & Plan (05/17/2024 10:19 AM EDT): Orders: Comprehensive metabolic panel; Future Thyroid stimulating hormone with reflex to free t4 and free t3; Future Hemoglobin A1c; Future Type 2 diabetes mellitus wit hout complication ([facility] V24, [facility] V28) 10/29/2017 Assessment & Plan (05/17/2024 10:19 AM EDT): Orders: Comprehensive metabolic panel; Future Thyroid stimulating hormone with reflex to free t4 and free t3; Future Hemoglobin A1c; Future Osteopenia 06/23/2017 Hypertension 06/11/2017 Diverticulosis 05/14/2017 Anxiety 01/22/2017 Asthma 09/05/2016 Depression 09/05/2016 Assessment & Plan (05/17/2024 10:19 AM EDT): Orders: Comprehensive metabolic panel; Future Thyroid stimulating hormone with reflex to free t4 and free t3; Future Hemoglobin A1c; Future Fibromyalgia 09/05/2016 Gastroesophageal reflux disease without esophagi tis 09/05/2016 Seasonal allergies 03/06/2016 Vitamin D deficiency 03/06/2016 Umbilical hernia 01/14/2016 Encounters Date Type Department Care Team Description 05/18/2024 Telephone Internal Medicine [facility] [address] [phone] Sagrario Harris [place] 05/17/2024 8:30 AM EDT Office Visit Internal Medicine [facility] [address] [phone] Kendal Mariano MD Type 2 diabetes mellitus without complication, without long-term current use of insulin ([facility] V24, [facility] V28) (Primary Dx); Encounter for subsequent annual wellness visit (AWV) in Medicare patient; Depression, unspecified depression type; Hypothyroidism, unspecified type 05/03/2024 8:15 AM EDT Office Visit Orthopedic Surgery [facility] 250 [address] [facility] [address] [place] [address] Israel Byrd DPVidal Tendinitis of right ankle (Primary Dx); Tendinitis of left ankle; Ingrowing nail; Primary osteoarthritis of both feet; Foot pain, bilateral; Pain in toe of right foot; Dermatophytosis of nail; Tinea pedis of both feet; Difficulty walking; Type 2 diabetes mellitus without complication, without long-term current use of insulin (CMS/HCC V24, CMS/[facility] V28); Diabetic mononeuropathy simplex ([facility] V24, [facility] V28); Plantar fascial fibromatosis [M72.2]; Pain in toe of left foot 03/31/2024 Telephone Internal Medicine [facility] 175 [facility] [address] [place] [address] Kendal Mariano MD [place]: Medication from Last 3 Months Immunizations Name Administration Dates Next Due Moderna SARS-CoV-2 COVID-19, mRNA, LNP-S, preservative free 06/18/2022 Pfizer SARS-CoV-2 COVID-19, mRNA, LNP-S, preservative free 04/10/2020,03/20/2020 Pneumococcal conjugate 20 va lent (Prevnar 20, PCV 20) 2mo and older 09/15/2022 Pneumococcal polysaccharide 23 valent (Pneumovax 23) 2yo and older 11/18/2019 Tdap Tetanus diptheria acell ular pertussis (Boostrix; Adacel) 7yo and older 02/28/2015 Surgical History Surgery Date Site/Laterality Comments CHOLECYSTECTOMY PROCEDURE: HISTORICAL CHOLECYSTECTOMY TUBAL LIGATION PROCEDURE: HISTORICAL TUBAL LIGATION HYSTERECTOMY PROCEDURE: HISTORICAL HYSTERECTOMY Medical History Medical History Date Comments Anxiety 01/22/2017 DX:Anxiety Asthma 09/05/2016 DX:Asthma Depression 09/05/2016 DX:Depression Diverticulosis 05/14/2017 DX:Diverticulosi s Elevated LFTs 10/29/2017 DX:Elevated LFTs Fibromyalgia 09/05/2016 DX:Fibromyalgia GERD (gastroesophageal reflux disease) 09/05/2016 DX:GERD (gastroesophageal reflux disease) History of positive PPD 02/18/2016 DX:Histo ry of positive PPD Hypertension 06/11/2017 DX:Hypertension Hypothyroidism 10/29/2017 DX:Hypothyroidis m Osteopenia 06/23/2017 DX:Osteopenia Seasonal allergies 03/06/2016 DX:Seasonal a llergies Type 2 diabetes mellitus wit hout complication ([facility]/HCC V24, [facility]/HCC V28) 10/29/2017 DX:Type 2 diabetes mellitus without complication ([facility]) Umbilical hernia 01/14/2016 DX:Umbilical he rnia Vitamin D deficiency 03/06/2016 DX:Vitamin D deficiency Back pain of lumbar region w ith sciatica 12/24/2017 DX:Back pain of lumbar regio n with sciatica Trigeminal neuralgia 06/19/2021 DX:Trigemin al neuralgia; COMMENT: R side of face. Cervical disc herniation 06/19/2021 DX:Cerv ical disc herniation; COMMENT: As well as lumbar region. Eczema 06/19/2021 DX:Eczema; COMME NT: Saw Allergy 12/21/2020 and 03/26/2021 for itchy skin rash, most likely eczema. Social History Tobacco Use Types Packs/Day Years [...] on file Sexual Orientation Not on file Obstetrics History Last Filed Vital Signs Vital Sign Reading Time Taken Comments Blood Pressure 134/88 05/17/2024 8:38 AM EDT Pulse 59 05/17/2024 8:38 AM EDT Temperature 36.2 ??C (97.1 ??F) 05/17/2024 8:38 AM ED T Respiratory Rate 16 12/22/2023 9:21 AM EST Oxygen Saturation 98% 05/17/2024 8:38 AM EDT Inhaled Oxygen Concentration - - Weight 71.7 kg (158 lb) 05/17/2024 8:38 AM EDT Height 149.9 cm (4' 11.02 ) 05/03/2024 8:09 AM E DT Body Mass Index 31.89 05/03/2024 8:09 AM EDT Plan of Treatment Upcoming Encounters Date Type Department Care Team (Late st Contact Info) Description 06/21/2024 8:30 AM EDT Office Visit Pulmonolgy [facility] [address] [phone] Samantha Almeida NP 175 [facility] 200 [place] [address] 07/06/2024 9:00 AM EDT Office Visit Orthopedic Surgery [facility] [address] [phone] Israel Byrd DPM [address] [address] 10/04/2024 8:30 AM EDT Office Visit Internal Medicine [facility] 175 [facility] [address] [place] [address] Kendal Mariano MD 175 [facility] [address] [place] [address] Health Maintenance Due Date Last Done Comments Diabetes: Annual Foot Exam 1965 RSV Immunization Adult Patients (1 - Risk 60-74 years 1-dose series) 2014 Zoster Vaccines (2 of 2) 11/17/2017 09/22/2017, 05/11 Hepatitis C Screening 01/18/2022 Osteoporosis Screening (Bone Density Screening) 01/18/2022 Social Influencers of Health Screening 01/18/2022 Diabetes: Annual Urine Albumin-Creatinine Ratio (uACR) 01/19/2022 06/01/2019 Diabetes: Annual Retina Eye Exam 04/07/2024 04/07/2023 Diabetes: Blood Sugar Control Test (HGBA1C) 04/25/2024 10/27/2023, 10/27/2023, 06/18/2023 Diabetes: Annual GFR (Glomerular Filtration Rate) 06/17/2024 06/18/2023, 06/18/2023 Hypertension/CHF/CAD Annual BMP Blood Test 06/17/2024 06/18/2023, 06/18/2023 Depression Screening 05/17/2025 05/17/2024, 06/09/19 Falls Risk Assessment 05/17/2025 05/17/2024 Medicare Annual Wellness Visit 05/17/2025 05/17/2024 Breast Cancer Screening 07/19/2025 07/20/19 24, 07/15/2022, 07/10/2021, Additional history exists Colorectal Cancer Screening: Colonoscopy 12/03/2025 12/03/2020 Cholesterol Screening (Lipid Panel) 06/17/2028 06/18/2023, 06/18/2023 DTaP,Tdap,and Td Vaccines (3 - Td or Tdap) 08/11/2030 08/11/2020, 02/28/2015 Pneumococcal Vaccine: 50+ Years Completed 09/15/2022, 11/18/2019 COVID-19 Vaccine Completed 10/16/2023, , 06/18/2022, Additional history exists Influenza Vaccine Completed 10/16/2023, , 10/21/2021, Additional history exists HIB Vaccines Aged Out No longer eligi ble based on patient's age to complete this topic HPV Vaccines Aged Out No longer eligi ble based on patient's age to complete this topic Hepatitis A Vaccines Aged Out No long er eligible based on patient's age to complete this topic Hepatitis B Vaccines Aged Out No long er eligible based on patient's age to complete this topic IPV Vaccines Aged Out No longer eligi ble based on patient's age to complete this topic MMR Vaccines Aged Out No longer eligi ble based on patient's age to complete this topic Meningococcal ACWY Vaccine Aged Out N o longer eligible based on patient's age to complete this topic Meningococcal B Vaccine Aged Out No l onger eligible based on patient's age to complete this topic RSV Immunization Patients Under 20 months Aged Out No longer eligible based on patient's age to complete this topic Varicella Vaccines Aged Out No longer eligible based on patient's age to complete this topic Procedures Procedure Name Priority Date/Time Associated Diagnosis Comments INJECTION TENDON OR LIGAMENT Routine 05/03/2024 8:15 AM EDT Plantar fascial fibromatosis [M72.2] INJECTION TENDON OR LIGAMENT Routine 05/03/2024 8:15 AM EDT Plantar fascial fibromatosis [M72.2] HEMOGLOBIN A1C Routine 10/27/2023 [facility] SCREENING DIGITAL Routine 07/20/2023 10:42 AM EDT Encounter for screening mammogram for malignant neoplasm of breast ANNUAL BMP BLOOD TEST Routine 06/18/2023 LIPID PANEL Routine 06/18/2023 DEPRESSION SCREENING Routine 06/09/2023 DIABETES EYE EXAM Routine 04/07/2023 COLONOSCOPY Routine 12/03/2020 URINE ALBUMIN CREATININE RATIO Routine 06/01/2019 from Last 3 Months or Most Recently Relevant to Health Maintenance Results * Injection tendon or ligament (05/03/2024 8:15 AM EDT) Israel Yu DPM - 05/03/2024 8:15 AM EDT Israel Byrd DPM ? 05/03/2024 ??5:49 PM Injection tendon or ligament Indications: pain Details: 25 G needle Medications: 0.5 mL lidocaine (PF) 1 %; 20 mg triamcinolone acetonide 40 mg/mL Informed Consent: ??Site: ??Foot ligament tendon Israel Byrd DPM IN CLINIC/BEDSIDE ORDERAB LES Final Result * Injection tendon or ligament (05/03/2024 8:15 AM EDT) Israel Yu DPM - 05/03/2024 8:15 AM EDT Israel Byrd DPM ? 05/03/2024 ??5:49 PM Injection tendon or ligament Indications: pain Details: 25 G needle Medications: 0.5 mL lidocaine (PF) 1 %; 20 mg triamcinolone acetonide 40 mg/mL Informed Consent: ??Site: ??Foot ligament tendon Israel Byrd DPM IN CLINIC/BEDSIDE ORDERAB LES Final Result * (ABNORMAL) Hemoglobin A1c (10/27/2023) Hemoglobin A1C 6.7(A) <=6.5 % Blood Venous blood specimen / Unknown Historical Provider LAB BLOOD ORDERABLES Nirmala l Result * MIMI SCREENING DIGITAL (07/20/2023 10:42 AM EDT) Anatomical Region Laterality Modality Mammography 07/20/2023 9:02 AM EDT Narrative 07/20/2023 10:42 AM EDT [facility] Diagnostic Imaging Department [address] [place] [id number] Patient: ??JESSICA BECKWITH ?/Age/Sex: 1955 - 68 - F Unit#: ??[id number] ? Location/Status: ??SPDIMAM/REG CLI ? Mnemonic/Ordering Site: ??DIGSC/SPMAM Ordering Physician: ??KENDAL MARIANO MD [facility] Screening Digital - 07/20/23923 Report Status:Signed EXAM: [facility] Screening Digital EXAM DATE AND TIME: 07/20/2023 9:25 AM HISTORY: ??Screening. Previous left breast biopsy, pathology benign. COMPARISON: ??07/15/22, 07/10/21, 07/04/20 TECHNIQUE: Bilateral digital breast tomosynthesis was performed in the CC and MLO projections. Computer aided detection with Yo 3D 3.1 was employed. TISSUE DENSITY: a. The breasts are almost entirely fatty. FINDINGS: No suspicious masses, grouped microcalcifications, or areas of architectural distortion are seen. Benign micro and macrocalcifications are again seen. A biopsy marker is present in the left breast. Vascular calcification is present. The skin is unremarkable. IMPRESSION: Stable mammographic appearance of the breasts. ??No evidence of malignancy is seen. A negative mammogram in the presence of a clinically suspicious palpable abnormality does not preclude the possibility of malignancy or alter the indications for biopsy. BI-RADS: ??Category 2: Benign RECOMMENDATION(S): 1: Routine screening mammogram BILATERAL in 1 year. Dictating Physician: ??ALDA NICE MD Electronically Signed by: ??ALDA NICE MD Dic Date/Time: ??07/20/23 1040 Sign date/Time: ??07/20/23 1042 Procedure Note Alda Nice MD - 11/25/2023 [facility] Diagnostic Imaging Department [address] [place] [address] Patient: TANGJESSICA D.O.B./Age/Sex: 1955 - 68 - F Unit#: [id number] Location/Status: SPDIMAM/REG CLI Mnemonic/Ordering Site: [facility] Ordering Physician: KENDAL MARIANO MD [facility] Screening Digital - 07/20/23 - 923 Report Status:Signed EXAM: [facility] Screening Digital EXAM DATE AND TIME: 07/20/2023 9:25 AM HISTORY: Screening. Previous left breast biopsy, pathology benign. COMPARISON: 07/15/22, 07/10/21, 07/04/20 TECHNIQUE: Bilateral digital breast tomosynthesis was performed in the CCand MLO projections. Computer aided detection with Yo 3D 3.1was employed. TISSUE DENSITY: a. The breasts are almost entirely fatty. FINDINGS: No suspicious masses, grouped microcalcifications, or areas ofarchitectural distortion are seen. Benign micro and macrocalcifications are again seen.A biopsy marker is present in the left breast. Vascular calcification is present. The skin is unremarkable. IMPRESSION: Stable mammographic appearance of the breasts. No evidence of malignancyis seen. A negative mammogram in the presence of a clinically suspicious palpable abnormality does not preclude the possibility of malignancy or alter the indications for biopsy. BI-RADS: Category 2: Benign RECOMMENDATION(S): 1: Routine screening mammogram BILATERAL in 1 year. Dictating Physician: ALDA NICE MD Electronically Signed by: ALDA NICE MD Dic Date/Time: 07/20/23 1040 Sign date/Time: 07/20/23 1042 Result [facility] Kendal Mariano MD IMG BI PROCEDURES Final Result * Annual BMP Blood Test (06/18/2023) [facility] Annual BMP Blood Test abstracted Result [facility] HEALTH MAINTENANCE Final Result * Lipid panel (06/18/2023) [facility] LDL/HDL Ratio 3 0 - 4 Triglycerides 80 0 - 150 mg/dL Cholesterol 159 0 - 200 mg/dL HDL 55 >=40 mg/dL LDL Cholesterol 88 0 - 100 mg/dL Blood Venous blood specimen / Unknown Result [facility] Provider LAB BLOOD ORDERABLES Nirmala l Result * Depression Screening (06/09/2023) [facility] Depression Screening abstracted Result [facility] Provider HEALTH MAINTENANCE Final Result * Diabetes Eye Exam (04/07/2023) [facility] Diabetes: Annual Retina Eye Exam abstracted Result [facility] Provider HEALTH MAINTENANCE Final Result * Colonoscopy (12/03/2020) [facility] Colonoscopy no interpreta tion,abstr acted Anatomical Region Laterality Modality Other Result [facility] Provider HEALTH MAINTENANCE Final Result * Urine Albumin Creatinine Ratio (06/01/2019) [facility] Urine Albumin Creatinine Ratio abstracted Result [facility] Provider HEALTH MAINTENANCE Final Result from Last 3 Months or Most Recently Relevant to Health Maintenance Insurance [facility] MEDICARE Member Subscriber Plan / Payer (Ef fective 2020-Present) Name:Jessica Beckwith Relation to Subscriber:Self Name:Jessica Beckwith Payer ID:[id number] Group ID:[id number] Type:Not on file Address: [place] [address] [address] [phone] Advance Directives Documents on File Type Date Recorded Patient Machine Turner Expl anation Health Care Decision (hx) 06/01/2017 AD HAMM DIRECTIVE Health Care Decision (hx) 06/01/2017 AD HAMM DIRECTIVE Health Care Decision (hx) 06/01/2017 AD HAMM DIRECTIVE Health Care Decision (hx) 06/01/2017 AD HAMM DIRECTIVE Health Care Decision (hx) 06/01/2017 AD HAMM DIRECTIVE Health Care Decision (hx) 06/01/2017 AD HAMM DIRECTIVE Health Care Decision (hx) 06/01/2017 AD HAMM DIRECTIVE Health Care Decision (hx) 06/01/2017 AD HAMM DIRECTIVE Health Care Decision (hx) 06/01/2017 AD HAMM DIRECTIVE Health Care Decision (hx) 06/01/2017 AD HAMM DIRECTIVE Health Care Decision (hx) 06/01/2017 AD HAMM DIRECTIVE Health Care Decision (hx) 06/01/2017 AD HAMM DIRECTIVE Health Care Decision (hx) 06/01/2017 AD HAMM DIRECTIVE Health Care Decision (hx) 06/01/2017 AD HAMM DIRECTIVE Health Care Decision (hx) 06/01/2017 AD HAMM DIRECTIVE Health Care Decision (hx) 06/01/2017 AD HAMM DIRECTIVE Health Care Decision (hx) 06/01/2017 AD HAMM DIRECTIVE Health Care Decision (hx) 06/01/2017 AD HAMM DIRECTIVE Health Care Decision (hx) 06/01/2017 AD HAMM DIRECTIVE Health Care Decision (hx) 06/01/2017 AD HAMM DIRECTIVE Health Care Decision (hx) 06/01/2017 AD HAMM DIRECTIVE Health Care Decision (hx) 06/01/2017 AD HAMM DIRECTIVE Health Care Decision (hx) 06/01/2017 AD HAMM DIRECTIVE Health Care Decision (hx) 06/01/2017 RAGHAVENDRA HAMM DIRECTIVE Care Teams Conservation Agent Relationship Specialty Start Date End Date Kendal Mariano MD [address] [phone] PCP - General Internal Medicine 06/18/18
--- OUTSIDE RECORDS SUMMARY | 2024-05-19 13:21 | XMS_ITS | Clinical Summary ---
Author Organization [facility] Address [address] [place] [address] Care Team Providers Care Metal Fabricator Welder Name Role Phone Vianney Day MD Primary Care Provide r Allergies Active Allergy Reactions Criticality Noted Date Comments Benazepril Anaphylaxis High 01/25/2013 Ibuprofen Swelling Losartan Nausea Only 09/06/2013 Maple Flavoring Agent (Non-Screening) 01/25/2013 Other reaction(s): Other Severe Moxifloxacin Shortness Of Breath High 01/25/2013 Nuts 12/24/2017 Medications Medication Sig Dispensed Refills Start Date End Date Status levothyroxine (SYNTHROID, LEVOXYL) tablet 100 mcg TK 1 T PO QD 11 12/02/2017 Active amLODIPine (NORVASC) tablet 10 mg 0 10/17/2014 Active gabapentin (NEURONTIN) 300 MG capsule TK 2 CS PO BID 3 12/15/2017 Active fluticasone (FLONASE) 50 MCG/ACT nasal spray SHAKE LQ AND U 1 SPR IEN QD 2 12/15/2017 Active Calcium Carbonate-Vitamin D3 (CALCIUM 600/VITAMIN D) 600-400 MG-UNIT TABS TAKE 1 TABLET BY MOUTH DAILY 0 10/07/2017 Active PROAIR HFA 108 (90 Base) MCG/ACT inhaler INHALE 2 PUFFS PO PRN EVERY 4 HOURS 1 11/25/2017 Active loratadine (CLARITIN) 10 MG tablet TK 1 T PO QD 2 11/18/2017 Active budesonide-formoterol (SYMBICORT) 160-4.5 MCG/ACT inhaler 0 07/14/2013 Active traZODone (DESYREL) 50 MG tablet 2 12/08/2017 Active Active Problems Problem Noted Date Diagnosed Date Back pain of lumbar region with sciatica 018 Family History Medical History Relation Name Comments Diabetes Brother Cancer Father Diabetes Mother Diabetes Sister Hypertension Sister Relation Name Status Comments Brother Father Mother Sister Social History Tobacco Use Types Packs/Day Years Used Date Smoking Tobacco: Never Smokeless Tobacco: Never Alcohol Use Standard Drinks/Week Comments No 0 (1 standard drink = 0.6 oz pur e alcohol) Sex and Gender Information Value Date Recorded Sex Assigned at Not on file Gender Identity Not on file Sexual Orientation Not on file Job Start Date Occupation Industry Not on file Not on file Not on file Last Filed Vital Signs Vital Sign Reading Time Taken Comments Blood Pressure - - Pulse - - Temperature - - Respiratory Rate - - Oxygen Saturation - - Inhaled Oxygen Concentration - - Weight 74.8 kg (165 lb) 12/24/2017 10:49 AM EST Height 121.9 cm (4') 12/24/2017 10:49 AM EST Body Mass Index 50.35 12/24/2017 10:49 AM EST Plan of Treatment Health Maintenance Due Date Last Done Comments Hepatitis C Screening 1955 COVID-19 Vaccine (#1) 1955 Depression Screening 1966 Preventative Health Evaluation 1972 DTap / Tdap / Td (1 - Tdap) 1973 Colon Cancer Screening (Colonoscopy) 04/20/1999 Breast Cancer Screening (Mammogram) 2004 Shingrix-Zoster Vaccine (1 of 2) 2004 Fall Risk Assessment 04/20/2019 Osteoporosis Screening (DEXA Scan) 04/20/2019 Pneumococcal Vaccine (1 of 1 - PCV) 04/20/2019 Influenza Vaccine (#1) 2023 RSV Adult > 60+ Yrs or Pregn ant (1 - 1-dose 75+ series) 2029 Hepatitis B Vaccines Aged Out No long er eligible based on patient's age to complete this topic RSV Ped < 20 months Aged Out No longe r eligible based on patient's age to complete this topic Care Teams Metal Fabricator Welder Relationship Specialty Start Date End Date Vianney Day MD PCP - General Internal Medicine 04/16/17
== END 2024-05-19 11:42 | disposition home or self-care (01) ==
LOC: HO.PMC 11:04
PROVIDERS: PCP Internal Medicine; Visit Provider Anesthesiology
DX: E11.42 Type 2 diabetes mellitus with diabetic polyneuropathy (principal); M47.816 Spondylosis without myelopathy or radiculopathy, lumbar region; G89.4 Chronic pain syndrome
CPT/HCPCS: 99203

== ENCOUNTER → 2024-05-19 11:04 | Outpatient (BNVA) | payer OTHER, SELFPAY | PROVIDERS: PCP Internal Medicine; Visit Provider Anesthesiology | DX: E11.42 Type 2 diabetes mellitus with diabetic polyneuropathy (principal); M47.816 Spondylosis without myelopathy or radiculopathy, lumbar region; G89.4 Chronic pain syndrome; M79.7 Fibromyalgia | CPT/HCPCS: 99202 ==

== ENCOUNTER 2024-05-24 11:41 | Outpatient (AMB) | payer OTHER, SELFPAY ==
--- NOTE | 2024-05-24 11:41 | HO.NEPHOV ---
Vital Signs 05/24/24 11:43 Height 4 ft 11 in Weight 161 lb 8 oz BMI 32.6 BP 122/78 Blood Pressure Location Lt brachial Position Sitting Pulse 60 Pulse Source Pulse Oximeter Pulse Oximetry (%) 97 Oxygen Delivery Method Room Air Intake Visit Reasons: R/S 05/12/2024 Inspector Integrated Circuits Required: No Accompanied by: Other Relationship Allergies benazepril Allergy (Severe, Verified 05/24/24 11:43) Anaphylaxis moxifloxacin Allergy (Intermediate, Verified 05/24/24 11:43) Wheezing duloxetine [From Cymbalta] Adverse Reaction (Intermediate, Verified 05/24/24 11:43) Palpitations pregabalin [From Lyrica] Adverse Reaction (Intermediate, Verified 05/24/24 11:43) Confusion amoxicillin [From Augmentin] Adverse Reaction (Unknown, Verified 05/24/24 11:43) Unknown clavulanic acid [From Augmentin] Adverse Reaction (Unknown, Verified 05/24/24 11:43) Unknown hydralazine Adverse Reaction (Unknown, Verified 05/24/24 11:43) Unknown ibuprofen Adverse Reaction (Unknown, Verified 05/24/24 11:43) Swelling losartan Adverse Reaction (Unknown, Verified 05/24/24 11:43) Nausea nickel Adverse Reaction (Unknown, Verified 05/24/24 11:43) Unknown nifedipine Adverse Reaction (Unknown, Verified 05/24/24 11:43) Unknown prednisone Adverse Reaction (Unknown, Verified 05/24/24 11:43) Unknown maple flavor Adverse Reaction (Severe, Uncoded 05/19/24 11:05) Unknown dust Adverse Reaction (Unknown, Uncoded 05/19/24 11:05) Unknown nuts Adverse Reaction (Unknown, Uncoded 05/19/24 11:05) Unknown pollen Adverse Reaction (Unknown, Uncoded 05/19/24 11:05) Unknown HPI Comments Details: I had the privilege of seeing Mrs. Eldridge in follow-up of her hypertension. Her blood pressure is well controlled now. She does not have any pedal edema, urinary symptoms, orthostasis, chest pain or proximal nocturnal dyspnea. She had eczematous rash in the past which was thought to be due to hydrochlorothiazide. She also had emotional lability on metoprolol and was discontinued. She is tolerating spironolactone and labetalol. She has a lot of medications side effects. She is compliant with the low-sodium diet and her medications. She denies taking any other nonsteroidal or [id number] medications. [facility] Medical History Osteopenia Diverticulosis Hypothyroidism Anxiety Type 2 diabetes mellitus without complication Eczema Trigeminal neuralgia of right side of face Surgical History Hx of hysterectomy Hx of tubal ligation Hx of cholecystectomy Social History Household Members: Spouse Alcohol intake: never Patient Tobacco Use Status: Never used Tobacco service: No Current occupational status: retired Review of Systems Const All systems reviewed & are unremarkable except as noted in HPI and below Physical Exam Const General: comfortable and no acute distress Orientation/consciousness: patient oriented x3 HEENT Head: Yes normocephalic Mouth: Normal oral and palatal mucosa present Eyes EOM: EOMs intact bilaterally Neck Neck: Yes supple Resp Auscultation: clear to auscultation bilaterally Cardio Jugular venous distension: no JVD Rate: regular rate GI Palpation (GI): Soft to palpation Auscultation: normal bowel sounds General: Yes no CVA tenderness Back/Spine/Pelvis Back: no CVA tenderness Skin General skin exam: no rashes or lesions noted Neuro General: patient oriented x3 and moves all extremities Extrem General: Yes no pedal edema Assessment & Plan Assessment & Plan (1) Hypertension: Code(s): I10 - Essential (primary) hypertension Category: Medical Qualifiers: Hypertension type: primary hypertension Qualified Code(s): I10 - Essential (primary) hypertension Plan Mrs Eldridge has longstanding hypertension on a backdrop of multiple medication intolerances. She had eczematous rashes due to hydrochlorothiazide and it was discontinued in the past.. She could not handle metoprolol as it was giving her emotional instability. She is currently on labetalol and spironolactone, which she is tolerating well. She was encouraged and not to take any nonsteroidal anti-inflammatories including meloxicam for now. She is trying to lose some weight, maintain good hydration, avoid nonsteroidal anti-inflammatory medications and maintain a low-sodium diet. I did not make any other medication changes today. All her questions were answered. Coding Level of Care Code Est Pt Level 4 (53379) Diagnoses Primary hypertension I10 Hypertension type: primary hypertension
[2024-05-24 11:43] VITALS: BP 122/78; PULSE 60; O2SAT 97; BMI 32.6
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
--- OUTSIDE RECORDS SUMMARY | 2024-05-24 14:28 | XMS_ITS | Clinical Summary ---
Author Organization 175 [facility] Address 175 [place] [address] Phone Care Team Providers Care Special Education Itinerant Teacher Name Role Phone Kendal Mariano MD Primary Care Provider [phone] Allergies Active Allergy Reactions Criticality Noted Date Comments Amoxicillin-Pot Clavulanate 05/06/2021 Moxifloxacin Shortness of breath,Wheezing High 01/25/2013 Benazepril Anaphylaxis High 01/25/2013 House Dust 05/06/2021 Hydralazine 02/28/2015 Ibuprofen 11/12/2023 Swelling/Edema Losartan Other 09/06/2013 Pregabalin 10/09/2020 Reaction Type: Side Effect Maple Flavor 01/25/2013 Other reaction(s): Other Severe Nickel 05/06/2021 Nickel/metal Nifedipine 02/28/2015 Nut - Unspecified 12/24/2017 Pollen Extracts 02/28/2015 Prednisone 02/28/2015 Medications miscellaneous medical supply [facility] 1 Each by Does not apply route continuous. 4 Active blood-glucose meter kit 1 Kit by Does not apply route 2 times daily. Check blood sugar twice daily 3 Active INCONTINENCE PAD, LINER, DISP [facility] Incontinence Supply Disposable ([facility] Incontinence Pads) [facility] Patient si Each by Does not apply route 3 times daily 4 Active magnesium oxide (MAG-OX) 400 mg magnesium tablet Take 1 Tablet by mouth 2 times daily. 4 Active ONETOUCH ULTRASOFT LANCETS [facility] 1 Kit by Does not apply route [...] morning. As needed 8 Active TENS UNITS [facility] Nerve Stimulator (TENS Therapy Pain Relief) Device [...] day. 15 tablet 1 5 025 Discontin ued([facility]) Hospital, Clinic, or Other Facility Administered Medication [...] Type 2 diabetes mellitus wit hout complication ([facility] V24, [facility] V28) 10/29/2017 Assessment & Plan (05/17/2024 10:19 [...] Encounters Date Type Department Care Team Description 05/20/2024 Telephone Internal Medicine [facility] [address] [phone] Kendal Mariano MD Medication Problem (Prior auth) 05/18/2024 Telephone Internal Medicine [facility] 175 [facility] [address] [place] [address] Sagrario Harris MA Jury Duty Letter 05/17/2024 8:30 AM EDT Office Visit Internal Medicine [facility] 175 [facility] [address] [place] [address] Kendal Mariano MD Type 2 diabetes mellitus without complication, without long-term current use of insulin ([facility] V24, [facility] V28) (Primary Dx); Encounter for subsequent annual wellness visit (AWV) in Medicare patient; Depression, unspecified depression type; Hypothyroidism, unspecified type 05/03/2024 8:15 AM EDT Office Visit Orthopedic Surgery - [place] 250 175 [facility] [address] [place] [address] Israel Byrd DPM Tendinitis of right ankle (Primary Dx); Tendinitis of left ankle; Ingrowing nail; Primary osteoarthritis of both feet; Foot pain, bilateral; Pain in toe of right foot; Dermatophytosis of nail; Tinea pedis of both feet; Difficulty walking; Type 2 diabetes mellitus without complication, without long-term current use of insulin ([facility] V24, [facility] V28); Diabetic mononeuropathy simplex ([facility] V24, [facility] V28); Plantar fascial fibromatosis [M72.2]; Pain in toe of left foot 03/31/2024 Telephone Internal Medicine - [address] [place] [address] Kendal Mariano MD [place]: Medication [...] Type 2 diabetes mellitus wit hout complication ([facility] V24, [facility] V28) 10/29/2017 DX:Type 2 diabetes mellitus without complication ([facility]) Umbilical hernia 01/14/2016 DX:Umbilical he rnia Vitamin [...] 8:30 AM EDT Office Visit Pulmonolgy - [place] [address] [phone] Samantha Almeida NP 175 [facility] 200 [place] [address] 07/06/2024 9:00 AM EDT Office Visit Orthopedic Surgery - [place] [address] [phone] Israel Byrd DPM [address] [address] 10/04/2024 8:30 AM EDT Office Visit Internal Medicine - [place] 175 [facility] [address] [place] [phone] Kendal Mariano MD 175 [facility] [address] [place] [address] Health Maintenance Due Date Last [...] Diabetes: Annual Retina Eye Exam 04/07/2024 04/07/2023 COVID-19 Vaccine (8 - Pfizer risk season) 2024 10/16/2023, 10/29/2022, 06/18/2022, Additional history exists Diabetes: Blood Sugar Control Test (HGBA1C) 04/25/2024 [...] Pneumococcal Vaccine: 50+ Years Completed 09/15/2022, 11/18/2019 Influenza Vaccine Completed 10/16/2023, , 10/21/2021, Additional [...] fascial fibromatosis [M72.2] HEMOGLOBIN A1C Routine 10/27/2023 [facility] SCREENING DIGITAL Routine 07/20/2023 10:42 AM [...] AM EDT Narrative 07/20/2023 10:42 AM EDT [facility] Diagnostic Imaging Department [address] [place] [id number] Patient: ??JACKIE BECKWITHBETH ?/Age/Sex: 1955 - 68 - F Unit#: ??[id number] ? Location/Status: ??SPDIMAM/REG CLI ? Mnemonic/Ordering Site: ??DIGSC/SPMAM Ordering Physician: ??KENDAL MARIANO MD [facility] Screening Digital - 07/20/23923 Report Status:Signed EXAM: [facility] Screening Digital EXAM DATE AND TIME: 07/20/2023 9:25 AM HISTORY: ??Screening. Previous left breast biopsy, pathology benign. COMPARISON: ??07/15/22, 07/10/21, 07/04/20 TECHNIQUE: Bilateral digital breast tomosynthesis was performed in the CC and MLO projections. Computer aided detection with [facility] 3D 3.1 was employed. TISSUE DENSITY: a. [...] Procedure Note Alda Nice MD - 11/25/2023 [facility] Diagnostic Imaging Department [address] [place] [address] Patient: JESSICA BECKWITH D.O.B./Age/Sex: 1955 - 68 - F Unit#: [id number] Location/Status: [facility] CLI Mnemonic/Ordering Site: [facility] Ordering Physician: KENDAL MARIANO MD [facility] Screening Digital - 07/20/23923 Report Status:Signed EXAM: [facility] Screening Digital EXAM DATE AND TIME: 07/20/2023 9:25 AM HISTORY: Screening. Previous left breast biopsy, pathology benign. COMPARISON: 07/15/22, 07/10/21, 07/04/20 TECHNIQUE: Bilateral digital breast tomosynthesis was performed in the CCand MLO projections. Computer aided detection with [facility] 3D 3.1was employed. TISSUE DENSITY: a. The [...] 07/20/23 1040 Sign date/Time: 07/20/23 1042 Result [facility] Kendal Mariano MD IMG BI PROCEDURES Final Result * Annual BMP Blood Test (06/18/2023) [facility] Annual BMP Blood Test abstracted Result [facility] HEALTH MAINTENANCE Final Result * Lipid panel (06/18/2023) [facility] LDL/HDL Ratio 3 0 - 4 Triglycerides 80 0 - 150 mg/dL Cholesterol 159 0 - 200 mg/dL HDL 55 >=40 mg/dL LDL Cholesterol 88 0 - 100 mg/dL Blood Venous blood specimen / Unknown Result [facility] LAB BLOOD ORDERABLES Nirmala l Result * Depression Screening (06/09/2023) [facility] Depression Screening abstracted Result [facility] HEALTH MAINTENANCE Final Result * Diabetes Eye Exam (04/07/2023) [facility] Diabetes: Annual Retina Eye Exam abstracted Result [facility] HEALTH MAINTENANCE Final Result * Colonoscopy (12/03/2020) [facility] Colonoscopy no interpreta tion,abstr acted Anatomical Region Laterality Modality Other Result [facility] HEALTH MAINTENANCE Final Result * Urine Albumin Creatinine Ratio (06/01/2019) Urine Albumin Creatinine Ratio abstracted us Historical Provider HEALTH MAINTENANCE Final Result from Last 3 Months or Most Recently Relevant to Health Maintenance Insurance [facility] MEDICARE Member Subscriber Plan / Payer (Ef fective 2020-Present) Name:Jessica Beckwith Relation to Subscriber:Self Name:Jessica Beckwith Payer ID:[id number] Group ID:[id number] Type:Not on file Address: [facility] [address] [phone] Advance Directives Documents on File Type Date Recorded Patient Him Analyst Expl anation Health Care Decision (hx) 06/01/2017 [...] DIRECTIVE Health Care Decision (hx) 06/01/2017 AD HMAM DIRECTIVE Health Care Decision (hx) 06/01/2017 AD [...] Care Decision (hx) 06/01/2017 AD HAMM DIRECTIVE Care Teams Special Education Itinerant Teacher Relationship Specialty Start Date End Date Kendal Mariano MD [address] [place] [phone] PCP - General Internal Medicine 06/18/18
--- OUTSIDE RECORDS SUMMARY | 2024-05-24 14:28 | XMS_ITS | Clinical Summary ---
Author Organization [facility] Address [address] [place] [address] Care Team Providers Care District Adviser Name Role Phone Vianney Day MD Primary [...] age to complete this topic Care Teams District Adviser Relationship Specialty Start Date End Date Vianney Day MD PCP - General Internal Medicine 04/16/17
--- OUTSIDE RECORDS SUMMARY | 2024-05-24 14:28 | XMS_ITS | Encounter Summary ---
Author Organization [facility] Address [address] [place] [address] Care Team Providers Care Coding Assistant Name Role Phone Odette Mariano MD Primary Care Provider [phone] Reason for Visit * Reason Onset Date Comments Medication Problem 05/20/2024 Prior auth Encounter Details Date Type Department Care Team (Late st Contact Info) Description 05/20/2024 Telephone Internal Medicine - [place] [address] [facility] [address] [place] [phone] Odette Mariano MD [address] [place] [address] [place] [address] Medication Problem (Prior auth) Social History Tobacco Use Types Packs/Day Years [...] as of this encounter Progress Notes * Odette Mariano MD - 05/22/2024 5:44 PM EDT Ask her to get cough syrup OTC * Fatemeh Arnold MA - 05/20/2024 10:59 AM EDT Please advise. * Lisa Vidal Yost - 05/20/2024 10:49 AM EDT Medication Benzonatate needs prior auth Per pharmacy # [id number] documented in this encounter Plan of Treatment Upcoming Encounters Date Type Department Care Team (Late st Contact Info) Description 06/21/2024 8:30 AM EDT Office Visit Pulmonolgy - [place] [address] [facility] [address] [place] [phone] Samantha Almeida NP [address] [address] 07/06/2024 9:00 AM EDT Office Visit Orthopedic Surgery - [place] 250 [address] [facility] [address] [place] [phone] Israel Byrd DPM 175 [facility] [address] [place] [address] 10/04/2024 8:30 AM EDT Office Visit Internal Medicine - [place] [address] [phone] Odette Mariano MD [address] [phone] documented as of this encounter Visit Diagnoses Not on filedocumented in this encounter Additional Health Concerns Assessment Noted Time PHQ-9 Depression Total Score: 1 05/18/19 25 8:48 AM EDT A fall risk assessment has been complete d for the patient 05/17/2024 8:42 AM EDT documented as of this encounter Care Teams Coding Assistant Relationship Specialty Start Date End Date Odette Mariano MD [address] [phone] PCP - General Internal Medicine 06/18/18 documented as of this encounter
--- OUTSIDE RECORDS SUMMARY | 2024-05-24 14:28 | XMS_ITS | Clinical Summary ---
Author Organization [facility] Address [address] [place] [address] Care Team Providers Care Jigmaker Name Role Phone Samantha Mathis PA-C Primary Care Provider Source Comments PLEASE NOTE, if this patient [...] mg/3 mL nebulizer solutionIndicatio ns:Mild persistent asthma ([facility]) Take 3 mL by nebulization every 6 [...] SYMBICORT 160-4.5 mcg/actuation inhalerIndication s:Mild persistent asthma ([facility]) 2 07/15/19 14 Active fluticasone (FLONASE) 50 mcg/actuation nasal sprayIndications: Mild persistent asthma ([facility]) 3 07/15/19 14 Active sodium chloride (OCEAN) [...] mg/patch) patchIndications: Diabetes mellitus type 2, uncomplicated ([facility]),Neuropa thy Place 1 Patch onto the skin [...] 01/2012 3 Overview (05/02/2014): Physiatry eval at [facility] by Dr. Gage 04/27/2014--trial of Cymbalta Ventral [...] Treatment Not on file [place] [employer] ACCI Care Teams Jigmaker Relationship Specialty Start Date End Date Samantha Mathis PA-C [address] [place] [phone] PCP - General 11/18/12
--- OUTSIDE RECORDS SUMMARY | 2024-05-24 14:28 | XMS_ITS | Encounter Summary ---
Author Organization [facility] Address [address] [place] [address] Care Team Providers Care Marine Fisheries Technician Name Role Phone Odette Mariano MD Primary Care Provider [phone] Reason for Visit * Reason Onset Date Comments Jury Duty Letter 05/18/2024 Encounter Details Date Type Department Care Team ([facility] st Contact Info) Description 05/18/2024 Telephone Internal Medicine - [place] [address] [facility] [address] [place] [phone] Sagrario Harris MA Jury Duty Letter Social History Tobacco Use Types Packs/Day Years [...] Progress Notes * Sagrario Harris MA - 05/23/2024 9:29 AM EDT 2nd call to patient informed her Jury Duty letter is ready for fruit picker, patient would like to have the letter to be mailed to her home due she is sick. * Sagrario Harris MA - 05/18/2024 12:11 PM EDT Call patient to answers left a voicemail to call back need to informed the patient that the letter for Jury duty is ready to fruit picker * Sagrario Harris MA - 05/18/2024 12:01 PM EDT Patient drop a Official Summons for Juror Service . Doctor Montserrat made a letter for Juror duty for patient. documented in this encounter Plan of Treatment Upcoming Encounters Date Type Department Care Team (Late st Contact Info) Description 06/21/2024 8:30 AM EDT Office Visit Pulmonolgy - [place] [address] [facility] [address] [place] [phone] Samantha Almeida NP [address] [facility] [address] [address] 07/06/2024 9:00 AM EDT Office Visit Orthopedic Surgery - [place] [address] [facility] [address] [place] [phone] Israel Byrd DPM 175 [facility] [address] [place] [address] 10/04/2024 8:30 AM EDT Office Visit Internal Medicine - [place] [address] [facility] [address] [phone] Odette Mariano MD [address] [facility] [address] [place] [address] [place] [phone] documented as of this encounter Visit Diagnoses Not on filedocumented in this encounter Additional Health Concerns Assessment Noted Time PHQ-9 Depression Total Score: 1 05/18/19 25 8:48 AM EDT A fall risk assessment has been complete d for the patient 05/17/2024 8:42 AM EDT documented as of this encounter Care Teams Marine Fisheries Technician Relationship Specialty Start Date End Date Odette Mariano MD 175 [facility] [place] [address] [place] [phone] PCP - General Internal Medicine 06/18/18 documented as of this encounter
--- OUTSIDE RECORDS SUMMARY | 2024-05-24 14:28 | XMS_ITS | Patient Health Record ---
Author Organization [facility] Address [address] [facility] [address] [place] [address] Care Team Providers Care Top Executive Name Role Phone Odette Mariano Primary Care [...] Problem Status W/U Status Risk Notes Problem [id number] Metabolic disord er, unspecified (E88.9) Active confirmed Problem [id number] Polyneuropathy i n diseases classified elsewhere (G63) Active confirmed Problem [id number] Capsulitis of metatarsophalangeal (MTP) joint of right foot (M77.51) Active confirmed Problem [id number] Type 2 diabetes mellitus with diabetic polyneuropathy, unspecified whether jewelry model maker insulin use (E11.42) Active confirmed Problem Hereditary disorder of nervous system (780601133) Neuropathy, 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
--- OUTSIDE RECORDS SUMMARY | 2024-05-24 14:29 | XMS_ITS | Data Portability ---
Author Organization [place] - [facility], Allergy Address [address] [facility] [address] [place] [address] Assessment Encounter Date Assessment Date Assessment LastModified by Organization Details LastModified Time 09/25/2023 09/25/2023 68-year-old aaron coleman referred for acute cough and throat sensitivity. Symptoms have improved since starting treatment for allergies and asthma. Fiberoptic laryngoscopy was benign without obvious mass or lesion. She will continue to follow up with her assessment technician for management of asthma. She may continue with Flonase and antihistamines for allergic rhinitis. She may follow up as needed. May consider allergy testing in the future. [email or web address] Not available 09/25/2023 13:57:44 03/01/2024 03/01/2024 Patient with history of chronic ear infections as a child, tympanosclerosis and chronic throat irritation. She was noted at the dentist to have some tonsil stones. Presently she has 1+ tonsils with crypts but no debris. She has been using alcohol containing mouthwash like Listerine. I have suggested holding off any mouthwash that has alcohol and using Biotene twice daily. She will follow-up in 2 to 3 months. If she has persistent symptoms consider fiberoptic laryngoscopy. She did have a fiberoptic exam in September which was normal [email or web address] Not available 03/01/2024 09:23:14 05/19/2024 05/19/2024 69-year-old aaron coleman presents for follow-up of allergic rhinitis and tonsil stones. On exam, nasal septum is deviated, but no purulence, hypertrophy, or rhinorrhea was noted. Tonsils are 1+ and cryptic bilaterally without exudate or debris. We discussed repeat fiberoptic laryngoscopy, which patient would like to hold off on at this time. I recommended that she follow-up with Dr. Pickett for management of allergies. She may follow-up as needed. [email or web address] Not available 05/19/2024 10:24:21 Plan of Treatment Reminders Order Date Submit Date Provider Last Modified By Organization Details Last Modified Time Details Appointments None record ed. Lab None record ed. Referral None record ed. Procedures None record ed. Surgeries None record ed. Imaging None record ed. Medication Orders None record ed. Patient TargetsNo targets recorded. Patient InstructionsNo instructions recorded. Reason for Referral None Reported. Results Created Date Observation Date Name Description Value Unit Range Abnormal Flag Note LastModifiedBy Organization Detail LastModifiedTime 09/30/19 24 03/06/2021 imagi ng/di agnos tic resul t No observ ation record ed. [email or web address] Not Available 22:13:08 09/30/19 24 03/08/2018 imagi ng/di agnos tic resul t No observ ation record ed. [email or web address] Not Available 22:13:09 09/30/19 24 03/16/2018 imagi ng/di agnos tic resul t No observ ation record ed. [email or web address] Not Available 22:13:10 09/30/19 24 05/09/2020 imagi ng/di agnos tic resul t No observ ation record ed. [email or web address] Not Available 22:13:11 09/30/19 24 10/19/2018 imagi ng/di agnos tic resul t No observ ation record ed. [email or web address] Not Available 22:13:22 09/30/19 24 03/06/2021 audio gram No observ ation record ed. [email or web address] Not Available 22:13:37 Result Notes None recorded. Problems Name Problem SNOMED Code Status Onset Date Resolution Date Notes Provider Name and Address Organization Details Recorded Time Dizziness and giddiness 998180139 Active 2021 Dizziness and giddiness ; Note: Date Diagnosed : 03/06/2021 2:35 PM (R42) [facility] 02:17:10 Conductiv e hearing loss, bilateral 189311001 Active 2021 Conductiv e hearing loss, bilateral ; Note: Date Diagnosed : 03/06/2021 2:35 PM (H90.0) Not Available [facility] 4 02:16:52 Tinnitus of right ear 35469297113 08 Active 2021 Tinnitus, right ear; Note: Date Diagnosed : 03/06/2021 2:35 PM (H93.11) Not Available [facility] 4 02:17:01 Allergic rhinitis 59300301 Active 2023 ALEX DRAKE PA-C [address] [facility],[place] [address], [place], [address] , [facility] - [facility] 4 13:55:27 Cough 42104339 Active 2023 ALEX DRAKE PA-C [address] [place] [address],[place] [address], [place], [address] , [facility] - [facility] 4 13:55:34 Chronic pharyngit is 137471 Active 2024 ARTEMIO CHADWICK MD [address] [facility],[place] [address], [place], [address] , [facility] - [facility] [place] 5 09:21:08 Amygdalol ith 4505677 Active 2024 ARTEMIO CHADWICK MD [address] [place] [address],[place] [address], [place], [address] , [facility] - [facility] [place] 5 09:21:40 Bilateral tympanosc lerosis 55450323967 231428 Active 2024 ARTEMIO CHADWICK MD [address] [place] [address],[place] [address], [place], [address] , [facility] - [facility] [place] 5 09:21:52 Problem Notes None recorded. Procedures Surgical History Date Name Laterality Status Provider Name and Address Organization Details Recorded Time 09/25/19 24 Fiberoptic Laryngoscopy (Comprehensive) completed ALEX DRAKE PA-C [address] [facility],[place] [address], [place], [address], [facility] - [facility] 09/25/2023 13:57:00 Imaging Results Imaging Date Name Status LastModified by Organiz ation Details LastModified Time 03/06/2021 imaging/diagno stic result completed Information not available 09/30/2023 22:13:08 03/08/2018 imaging/diagno stic result completed Information not available 09/30/2023 22:13:09 03/16/2018 imaging/diagno stic result completed Information not available 09/30/2023 22:13:10 05/09/2020 imaging/diagno stic result completed Information not available 09/30/2023 22:13:11 10/19/2018 imaging/diagno stic result completed Information not available 09/30/2023 22:13:22 03/06/2021 audiogram completed Information not available 09/30/2023 22:13:37 Procedure Notes None recorded. Medical Equipment None Reported. Allergies Allergen ID Allergen Name Allergen Category Reaction Reaction Severity Criticality Documentation Date Start Date Code Code System Note Provider Name and Address Organization Details Recorded Time 28661 prednison e medicatio n other Not available Not available 06/23/2023 8640 RxNorm React ion: other react ion, Unkno wn; Not Available [facility] 00:49:43 95230 hydralazi ne medicatio n other Not available Not available 06/23/2023 5470 RxNorm React ion: other react ion, Unkno wn; Not Available [facility] 4 00:49:44 20900 Lyrica medicatio n other Not available Not available 06/23/2023 11781 1 RxNorm React ion: other react ion, Unkno wn; Not Available [facility] 4 00:49:50 24282 moxifloxa atif medicatio n wheezing Not available Not available 06/23/2023 84826 2 RxNorm React ion: other react ion, Short ness of breat h; Not Available [facility] 4 00:49:51 49006 losartan Not available other Not available Not available 06/23/2023 35660 RxNorm React ion: other react ion, Unkno wn; Not Available [facility] 4 00:49:51 37113 Avelox medicatio n other Not available Not available 06/23/2023 71666 6 RxNorm React ion: other react ion, Unkno wn; Not Available [facility] 4 00:49:54 18999 benazepri l medicatio n anaphylax is Not available Not available 06/23/2023 57337 RxNorm React ion: shock ;; Not Available [facility] 4 00:49:55 38846 ibuprofen medicatio n other Not available Not available 06/23/2023 5640 RxNorm React ion: other react ion, Unkno wn; Not Available [facility] 4 00:49:56 29989 nifedipin e medicatio n other Not available Not available 06/23/2023 7417 RxNorm React ion: other react ion, Unkno wn; Not Available [facility] 4 00:49:57 Medications Name Sig Start Date Stop Date Status Note LastModified by Organization Details LastModified Time delivery fee active Not Available Not Available Not Available Vitamin B-2 100 mg tablet active Not Available Not Available No t Available acetamino phen 325 mg tablet active Not Available Not Available No t Available labetalol 200 mg tablet active Not Available Not Available Not Available tizanidin e 2 mg tablet 2021 active Medicati on ID: [id number] B rand Name: anne marie chu Send Method: E-Prescr ibed Sub s Allowed: subs OK Medic ationGen ericName : anne marie ne Not Available Not Available Not Available albuterol sulfate 2.5 mg/3 mL (0.083 %) solution for nebulizat ion active Not Available Not Available Not Available trazodone 50 mg tablet 100 mg every day by oral route. 2023 active Not Available Not Available Not Avai lable cetirizin e 10 mg tablet TAKE 1 TABLET BY MOUTH EVERY NIGHT AT BEDTIME active Not Available Not Available No t Available atorvasta tin 10 mg tablet active Not Available Not Available Not Available meloxicam 15 mg tablet active Not Available Not Available Not Available sumatript an 25 mg tablet active Not Available Not Available Not Available prednison e 20 mg tablet active Not Available Not Available Not Available glipizide ER 5 mg tablet, extended release 24 hr active Not Available Not Available Not Available phentermi ne 15 mg capsule TAKE 1 CAPSULE BY MOUTH EVERY MORNING active Not Available Not Available No t Available potassium chloride ER 10 mEq tablet,ex tended release 09/24 completed Medicati on ID: [id number] B rand Name: orin hammonds chloride Send Method: E-Prescr ibed Sub s Allowed: subs OK Medic ationGen ericName : sharminu m chloride Not Available Not Available Not Available fexofenad ine 180 mg tablet TAKE 1 TABLET BY MOUTH DAILY active Not Available Not Available No t Available amoxicill in 500 mg tablet TAKE 1 TABLET BY MOUTH TWICE DAILY active Not Available Not Available No t Available meloxicam 7.5 mg tablet active Not Available Not Available Not Available levothyro xine 100 mcg tablet active Not Available Not Available Not Available levothyro xine 88 mcg tablet 100 microgra ms every day by oral route. 2023 active Not Available Not Available Not Avai lable calcium 600 mg (as calcium carbonate 1,500 mg) tablet 2021 active Medicati on ID: [id number] B rand Name: calcium carbonat e Send Method: E-Prescr ibed Sub s Allowed: subs OK Medic ationGen ericName : calcium carbonat e Not Available Not Available Not Available magnesium oxide 400 mg (241.3 mg magnesium ) tablet active Not Available Not Available Not Available methocarb chris 750 mg tablet TAKE 1 TABLET BY MOUTH EVERY 6 HOURS NEEDED FOR PAIN active Not Available Not Available No t Available triamcino lone acetonide 0.025 % topical cream 2021 active Medicati on ID: [id number] B rand Name: triamcin olone acetonid e Send Method: E-Prescr ibed Sub s Allowed: subs OK Medic ationGen ericName : triamcin olone acetonid e Not Available Not Available Not Available trazodone 100 mg tablet active Not Available Not Available Not Available OneTouch Ultra Test strips active Not Available Not Available Not Available amlodipin e 10 mg tablet 09/24 completed Medicati on ID: [id number] B rand Name: amlodipi ne Send Method: E-Prescr ibed Sub s Allowed: subs OK Medic ationGen ericName : amlodipi ne Not Available Not Available Not Available benzonata te 100 mg capsule TAKE 1 CAPSULE BY MOUTH THREE TIMES DAILY FOR UP TO 10 DAYS NEEDED FOR COUGH active Not Available Not Available No t Available glipizide ER 2.5 mg tablet, extended release 24 hr active Not Available Not Available Not Available omeprazol e ER 20 mg capsule,e xtended release active Not Available Not Available Not Available cephalexi n 500 mg capsule TAKE 1 CAPSULE BY MOUTH TWICE DAILY FOR 7 DAYS active Not Available Not Available No t Available erythromy atif 5 mg/gram (0.5 %) eye ointment active Not Available Not Available Not Available cyanocoba magen (vit B-12) 1,000 mcg/mL injection solution 09/24 completed Medicati on ID: [id number] B rand Name: cyanocob alamin (vitamin B-12) Se nd Method: E-Prescr ibed Sub s Allowed: subs OK Medic ationGen ericName : cyanocob alamin (vitamin B-12) Not Available Not Available Not Available Banophen 25 mg tablet 09/24 completed Medicati on ID: [id number] B rand Name: Banophen Send Method: E-Prescr ibed Sub s Allowed: subs OK Medic ationGen ericName : Banophen Not Available Not Available Not Available metformin 1,000 mg tablet 09/24 completed Medicati on ID: [id number] B rand Name: metformi n Send Method: E-Prescr ibed Sub s Allowed: subs OK Medic ationGen ericName : metformi n Not Available Not Available Not Available nitrofura ntoin macrocrys joss 100 mg capsule TAKE 1 CAPSULE BY MOUTH TWICE DAILY active Not Available Not Available No t Available prednison e 50 mg tablet TAKE 1 TABLET BY MOUTH DAILY active Not Available Not Available No t Available zafirluka st 20 mg tablet TAKE 1 TABLET BY MOUTH TWICE DAILY active Not Available Not Available No t Available omeprazol e 20 mg capsule,d elayed release active Not Available Not Available Not Available monteluka st 10 mg tablet 09/24 completed Not Available Not Available Not Available hydroxyzi ne HCl 25 mg tablet 2021 active Medicati on ID: [id number] B rand Name: hydroxyz ine HCl Send Method: E-Prescr ibed Sub s Allowed: subs OK Medic ationGen ericName : hydroxyz ine HCl Not Available Not Available Not Available alcohol swabs active Not Available Not Available Not Available gabapenti n 100 mg capsule active Not Available Not Available Not Available alclometa sone 0.05 % topical ointment active Not Available Not Available Not Available azelastin e 137 mcg (0.1 %) nasal spray USE 2 SPRAYS IN EACH NOSTRIL TWICE DAILY NEEDED active Not Available Not Available No t Available epinephri ne 0.3 mg/0.3 mL injection , auto-inje ctor 2021 active Medicati on ID: [id number] B rand Name: epinephr ine Send Method: E-Prescr ibed Sub s Allowed: subs OK Medic ationGen ericName : epinephr ine Not Available Not Available Not Available labetalol 100 mg tablet active Not Available Not Available Not Available albuterol sulfate HFA 90 mcg/actua tion aerosol inhaler 2021 active Medicati on ID: [id number] B rand Name: albutero l sulfate Send Method: E-Prescr ibed Sub s Allowed: subs OK Medic ationGen ericName : albutero l sulfate Not Available Not Available Not Available fluticaso ne propionat e 50 mcg/actua tion nasal spray,ariel pension active Not Available Not Available Not Available loratadin e 10 mg tablet TAKE 1 TABLET BY MOUTH EVERY MORNING NEEDED active Not Available Not Available No t Available spironola ctone 50 mg tablet active Not Available Not Available No t Available tobramyci n 0.3 %-dexamet hasone 0.1 % eye drops,ariel pension INSTILL 1 DROP BOTH EYES THREE TIMES DAILY FOR 1 WEEK THEN EVERY DAY FOR 1 WEEK active Not Available Not Available No t Available oxycodone 5 mg tablet TAKE 1 TABLET BY MOUTH EVERY 4 HOURS NEEDED FOR SEVERE PAIN active Not Available Not Available No t Available cyclobenz aprine 5 mg tablet active Not Available Not Available No t Available topiramat e 50 mg tablet TAKE 1 TABLET BY MOUTH DAILY active Not Available Not Available No t Available phentermi ne active Not Available Not Available Not Available Advair HFA 45 mcg-21 mcg/actua tion aerosol inhaler 09/24 completed Medicati on ID: [id number] B rand Name: Advair HFA Send Method: E-Prescr ibed Sub s Allowed: subs OK Medic ationGen ericName : Advair HFA Not Available Not Available Not Available Advair HFA 230 mcg-21 mcg/actua tion aerosol inhaler active Not Available Not Available Not Available calcium 600 mg (as carbonate )-vitamin D3 10 mcg (400 unit) tablet active Not Available Not Available Not Available hydrochlo rothiazid e 12.5 mg tablet 09/24 completed Medicati on ID: [id number] B rand Name: hydrochl orothiaz fe Send Method: E-Prescr ibed Sub s Allowed: subs OK Medic ationGen ericName : hydrochl orothiaz fe Not Available Not Available Not Available diclofena c 1 % topical gel APPLY 4 GRAMS TOPICALL Y TO THE AFFECTED AREA TWICE DAILY active Not Available Not Available No t Available Eye Itch Relief 0.025 % (0.035 %) drops active Not Available Not Available Not Available cholecalc iferol (vitamin D3) 50 mcg (2,000 unit) tablet 2021 active Medicati on ID: [id number] B rand Name: cholecal ciferol (vitamin D3) Send Method: E-Prescr ibed Sub s Allowed: subs OK Medic ationGen ericName : cholecal ciferol (vitamin D3) Not Available Not Available Not Available alpha lipoic acid 200 mg tablet active Not Available Not Available No t Available Trelegy Ellipta 100 mcg-62.5 mcg-25 mcg powder for inhalatio n active Not Available Not Available Not Available OneTouch Delica Plus Lancet 30 gauge active Not Available Not Available Not Available Ozempic 0.25 mg or 0.5 mg (2 mg/3 mL) subcutane ous pen injector INJECT 0.25MG INTO THE SKIN ONE DAY A WEEK active Not Available Not Available No t Available glipizide 2.5 mg tablet active Not Available Not Available Not Available Vitals Date Recorded Body height Body mass index (BMI) Body weight Provider Name and Address Organization Details Last Updated DateTime 05/19/2024 149.86 cm 32.3 kg/m2 42165.78 g Ann Butler [facility] 05/19/2024 09:46:03 Date Recorded Body height Body mass index (BMI) Body weight Provider Name and Address Organization Details Last Updated DateTime 09/25/2023 149.86 cm 32.7 kg/m2 96775.96 g Ann Butler [facility] 09/25/2023 12:51:38 Date Recorded Body height Body mass index (BMI) Body weight Provider Name and Address Organization Details Last Updated DateTime 03/01/2024 149.86 cm 32.3 kg/m2 68058.78 g Dion Tolentino [facility] 03/01/2024 08:56:48 Social History None recorded. Functional Status None recorded. Mental Status None recorded. Family History Nothing Reported. Medical History No medical history recorded. Gynecological HistoryNo gynecological history recorded. Obstetrics History GPAL:G 0 P 0 0 0 0 Past Encounters Encounter ID Performer Location Encounter Start Date Encounter Closed Date Diagnosis/Indication Diagnosis SNOMED-CT Code Diagnosis ICD10 Code Diagnosis Note [id number] ARTEMIO CHADWICK MD [facility] [address] [address] 09/25/2023 12:29:34 09/25/2023 13:26:31 Allergic rhinitis 57180100 J30.89 Cough 44217892 R05.1 [id number] ARTEMIO CHADWICK MD [facility] [address] [address] 03/01/2024 08:52:27 03/01/2024 09:26:56 Chronic pharyngitis 270389 J31.2 Amygdalolith 1073118 J35 .8 Bilateral tympanosclerosis 6462760797 0758394 H74.03 [id number] YUNIOR LEMA MD [facility] [address] [address] 05/19/2024 09:41:36 05/19/2024 10:13:31 Allergic rhinitis 87104530 J30.89 Amygdalolith 6705980 J35 .8 Health Concerns Section Related Observation LastModified by Organization Detai ls LastModified Time None Recorded Concern Status LastModified by Organization Details LastModified Time None Recorded Advance Directives Directive None Recorded Payers Encounter Date Sequence Insurance Name Policy Number Policy Payton Covered Member ID Payton Member ID Guarantor Name 09/25/2023 1 [employer] - [facility] [place] ([place] VANTAGE - HMO) Jessica Eldridge [id number] Jessica Chente 03/01/2024 1 [facility] - DOS ON OR AFTER 2022 - DUAL ELIGIBLE - MEDICARE ADVANTAGE [place] (MEDICARE REPLACEMENT/AD VANTAGE - HMO) Jessica Eldridge [id number] Jessica Eldridge 05/19/2024 1 [facility] - DOS ON OR AFTER 2022 - [employer] (MEDICARE REPLACEMENT/AD VANTAGE - HMO) Jessica Eldridge [id number] Jessica Eldridge Notes Date Note Type Note Provider Name and Address Organization Details Recorded Time 09/25/2023 text/html 68-year-old aaron coleman presents for evaluation of throat sensitivity. She was referred by her assessment technician because at that time she was having an allergy and asthma flareup and noted sensitivity of the larynx. Was also having a lot of coughing. Asthma is well-controlled and she has not had any further symptoms. She was also started on Flonase and an antihistamine for allergic rhinitis with improvement. Denies dysphagia, odynophagia, and choking on food/liquids. Denies history of tobacco use. She was also started on Prilosec by her assessment technician for concern about acid reflux. ARTEMIO FRANKS MD [address] [place] [address], [place], [address], [place] - [facility] 09/25/2023 15:53:07 03/01/2024 text/html Patient seen at the request of the oral surgeon for possible tonsil stone removal. She presently uses Listerine for her mouthwash. No trouble eating or drinkingShe notes some discomfort in her throat from the tonsil stones. She has a history of trigeminal neuralgia and hearing loss ARTEMIO FRANKS MD [address] [facility],[address], [address], [place] - [facility] 03/01/2024 09:23:28 05/19/2024 text/html 69-year-old aaron coleman presents for follow-up of allergies and tonsil stones. She was last seen in February for tonsil stones. She reports less tonsil stones since switching to a nonalcohol-based oral product. She is followed by Dr. Pickett for management of allergic rhinitis and currently takes Flonase, Azelastine, and 2 different antihistamines daily. She does have concerns that her allergy symptoms are not well-controlled. Is on a beta-michael for hypertension. Reports cough, nasal drainage, and congestion. Is followed by pulmonology for management of asthma. YUNIOR LEMA MD [address] [place] [address],[place] [address], [place], [address], [facility] - [facility] 05/19/2024 17:22:33 OBGyn Episode No OBEpisode recorded.
== END 2024-05-24 11:59 | disposition home or self-care (01) ==
LOC: HO.HKAS 11:41
PROVIDERS: PCP Internal Medicine; Visit Provider Internal Medicine Nephrology
DX: I10 Essential (primary) hypertension (principal)
CPT/HCPCS: 99214

== ENCOUNTER → 2024-05-24 11:41 | Outpatient (BNVA) | payer OTHER, SELFPAY | PROVIDERS: PCP Internal Medicine; Visit Provider Internal Medicine Nephrology | DX: I10 Essential (primary) hypertension (principal) | CPT/HCPCS: 99212 ==

== ENCOUNTER 2024-11-22 10:47 | Outpatient (AMB) | payer OTHER, SELFPAY ==
--- NOTE | 2024-11-22 11:10 | HO.NEPHOV_ITS ---
Vital Signs 11/22/24 11:12 Height 4 ft 11 in Weight 173 lb BMI 34.9 BP 120/70 Blood Pressure Location Lt brachial Position Sitting Pulse 57 Pulse Source Pulse Oximeter Pulse Oximetry (%) 98 Oxygen Delivery Method Room Air Intake Visit Reasons: 6mon follow-up No labs Unit Coordinator Required: No Accompanied by: Other Relationship Allergies benazepril Allergy (Severe, Verified 11/22/24 11:12) Anaphylaxis moxifloxacin Allergy (Intermediate, Verified 11/22/24 11:12) Wheezing duloxetine (From Cymbalta) Adverse Reaction (Intermediate, Verified 11/22/24 11:12) Palpitations pregabalin (From Lyrica) Adverse Reaction (Intermediate, Verified 11/22/24 11:12) Confusion amoxicillin (From Augmentin) Adverse Reaction (Unknown, Verified 11/22/24 11:12) Unknown clavulanic acid (From Augmentin) Adverse Reaction (Unknown, Verified 11/22/24 11:12) Unknown hydralazine Adverse Reaction (Unknown, Verified 11/22/24 11:12) Unknown ibuprofen Adverse Reaction (Unknown, Verified 11/22/24 11:12) Swelling losartan Adverse Reaction (Unknown, Verified 11/22/24 11:12) Nausea nickel Adverse Reaction (Unknown, Verified 11/22/24 11:12) Unknown nifedipine Adverse Reaction (Unknown, Verified 11/22/24 11:12) Unknown prednisone Adverse Reaction (Unknown, Verified 11/22/24 11:12) Unknown maple flavor Adverse Reaction (Severe, Uncoded 05/19/24 11:05) Unknown dust Adverse Reaction (Unknown, Uncoded 05/19/24 11:05) Unknown nuts Adverse Reaction (Unknown, Uncoded 05/19/24 11:05) Unknown pollen Adverse Reaction (Unknown, Uncoded 05/19/24 11:05) Unknown HPI Comments Details: I had the privilege of seeing Mrs. Eldridge in follow-up of her hypertension. Her blood pressure is well controlled now. She does not have any pedal edema, urinary symptoms, orthostasis, chest pain or proximal nocturnal dyspnea. She had eczematous rash in the past which was thought to be due to hydrochloroth iazide. She also had emotional lability on metoprolol and was discontinued. She is tolerating spironolactone and labetalol. She has a lot of medications side effects. She is compliant with the low-sodium diet and her medications. She denies taking any other nonsteroidal or delq-ror-ewpcyza medications. She had been having generalized rash and has seen Dermatology( had a biopsy of the lesion). [facility] Medical History Osteopenia Diverticulosis Hypothyroidism Anxiety Type 2 diabetes mellitus without complication Eczema Trigeminal neuralgia of right side of face Surgical History Hx of hysterectomy Hx of tubal ligation Hx of cholecystectomy Social History Household Members: Spouse Alcohol intake: never Patient Tobacco Use Status: Never used Tobacco service: No Current occupational status: retired Review of Systems Const All systems reviewed & are unremarkable except as noted in HPI and below Physical Exam Vital Signs: Last Vital Signs Pulse 57 11/22/24 11:12 BP 120/70 11/22/24 11:12 Pulse Ox 98 11/22/24 11:12 Oxygen Delivery Method Room Air 11/22/24 11:12 BMI result Body Mass Index 34.9 Const General: comfortable and no acute distress Orientation/consciousness: patient oriented x3 HEENT Head: Yes normocephalic Mouth: Normal oral and palatal mucosa present Eyes EOM: EOMs intact bilaterally Neck Neck: Yes supple Resp Auscultation: clear to auscultation bilaterally Cardio Jugular venous distension: no JVD Rate: regular rate GI Palpation (GI): Soft to palpation Auscultation: normal bowel sounds General: Yes no CVA tenderness Back/Spine/Pelvis Back: no CVA tenderness Skin General skin exam: no rashes or lesions noted Neuro General: patient oriented x3 and moves all extremities Extrem General: Yes no pedal edema Assessment & Plan Assessment & Plan (1) Hypertension: Code(s): I10 - Essential (primary) hypertension Category: Medical Qualifiers: Hypertension type: primary hypertension Qualified Code(s): I10 - Essential (primary) hypertension Plan Mrs Eldridge has longstanding hypertension on a backdrop of multiple medication in tolerances. She had eczematous rashes due to hydrochlorothiazide and it was discontinued in the past. She could not handle metoprolol as it was giving her emotional instability. She is currently on labetalol and spironolactone, which she is tolerating well. She was encouraged and not to take any nonsteroidal anti-inflammatories including meloxicam for now. She is trying to lose some weight, maintain good hydration, avoid nonsteroidal anti-inflammatory medications and maintain a low-sodium diet. I did not make any other medication changes today. All her questions were answered. Orders: Orders Creatinine 6 Months I10 - Essential (primary) hypertension Blood Urea Nitrogen 6 Months I10 - Essential (primary) hypertension Electrolytes 6 Months I10 - Essential (primary) hypertension Medications: Changed From labetalol 200 mg PO BID To labetalol 200 mg PO BID 180 tabs 4RF 90 days Refilled spironolactone 50 mg PO DAILY 90 tabs 4RF Coding Level of Care Code Est Pt Level 4 (05826) Diagnoses Primary hypertension I10 Hypertension type: primary hypertension
[2024-11-22 11:12] VITALS: BP 120/70; PULSE 57; O2SAT 98; BMI 34.9
--- OUTSIDE RECORDS SUMMARY | 2024-11-22 12:53 | XMS_ITS | Encounter Summary ---
Author Organization [facility] Address [address] [place] [address] Phone Care Team Providers Care Bricklayer Sewer Name Role Phone Odette Mariano MD Primary Care Provider [phone] Encounter Details Date Type Department Care Team (Late st Contact Info) Description 06/05/2022 Telephone [facility] [address] [place] [phone] Luba Bennett Social History Tobacco Use Types [...] on filedocumented in this encounter Care Teams Bricklayer Sewer Relationship Specialty Start Date End Date Odette Mariano MD [address] [address] PCP - General 02/20/20 documented as of this encounter
--- OUTSIDE RECORDS SUMMARY | 2024-11-22 12:53 | XMS_ITS | Clinical Summary ---
Author Organization [facility] Address [address] [facility] [address] [place] [address] Phone Care Team Providers Care Factory Engineer Name Role Phone Odette Mariano MD Primary Care Provider [phone] Allergies Active Allergy Reactions Criticality Noted Date [...] 01/25/2013 06/25/2020 Overview (06/25/2020): Physiatry eval at [facility] by Dr. Gage 04/27/2014--trial of Cymbalta History of cholecystectomy 01/25/2013 0 06/25/2020 History of colonoscopy 01/25/201306/25 Ventral hernia 01/25/2013 06/25/2020 Degeneration of lumbar intervertebral disc 01/25/2013 06/26/2020 Overview (06/26/2020): Physiatry eval at [facility] by Dr. Gage 04/27/2014--trial of Cymbalta Immunizations [...] Diabetes: Visual Foot Exam 09/05/2022 Influenza Vaccine (#1) 2024 Colorectal Cancer Screening: Colonoscopy 06/25/2030 06/25/2020 [...] mg/dl PVNMA 03/03/2019 us [facility] Conversion LAB [id number] LICITED RESULTS Final Result PVNMA from Last 3 Months or Most Recently Relevant to Health Maintenance Insurance [facility] ([id number]) [facility] ([id number]) Care Teams Factory Engineer Relationship Specialty Start Date End Date Odette Mariano MD 175 [facility] [address] [place] [address] PCP - General 02/20/20
--- OUTSIDE RECORDS SUMMARY | 2024-11-22 12:53 | XMS_ITS | Encounter Summary ---
Author Organization [facility] Address [address] [place] [address] Care Team Providers Care Herbologist Name Role Phone Odette Mariano MD Primary Care Provider [phone] Reason for Referral * Imaging (Routine) - Authorized Specialty Diagnoses / Procedures Referred By Conttosha t Referred To Contact Radiology Diagnoses Postmenopausal state Procedures BD Bone Density DXA Axial Skeleton Odette Marinao MD [address] [address] Phone: tel: fax: [address] [address] Phone: tel: Referral ID Status Reason Start Date Expiration Date V isits Requested Visits Authorized [id number] Authorized 10/17/2024 10/17/2025 1 1 Reason for Visit * Reason Onset Date Comments Requesting DEXA scan 10/17/2024 Encounter Details Date Type Department Care Team (Late st Contact Info) Description 10/17/2024 Telephone Internal Medicine - [place] [address] [address] Odette Mariano MD [address] [address] Social History Tobacco Use Types Packs/Day Years Used Date Smoking Tobacco: Never Smokeless Tobacco: Never Alcohol Use Standard Drinks/Week Comments Never 0 (1 standard drink = 0.6 oz pur e alcohol) Comments No Sex and Gender Information Value Date Recorded Sex Assigned at Female 10/18/2024 1:48 PM EDT Legal Sex Female 4:17 AM EST Gender Identity Female 10/25/2024 10:59 AM EDT Sexual Orientation Not on file documented as of this encounter Functional Status * Calculated C-SSRS Risk Score (Lifetime/Recent) Answer Date of Assessment Author No Risk Indicated 10/17/2024 3:54 PM EDT Yin Garcia RN * Hall Suicide Severity Rating Scale (Screener/Recent Self-Report) Question Answer Date of Assessment Author 1. Wish to be (Past 1 Month) No 025 3:54 PM EDT Yin Garcia RN 2. Non-Specific Active Suici sherri Thoughts (Past 1 Month) No 10/17/2024 3:54 PM EDT Saul Garcia, RN 6. Suicidal Behavior (Lifetime) No 3:54 PM EDT Yin Garcia RN documented as of this encounter Progress Notes * Odette Mariano MD - 10/17/2024 8:56 PM EDT ordered * Katlyn Watson - 10/17/2024 12:25 PM EDT Pt called and requested a DEXA scan because she got a letter that pt should get one done to check for osteoporosis. Please advise Cb# [phone] documented in this encounter Plan of Treatment Upcoming Encounters Date Type Department Care Team (Late st Contact Info) Description 12/05/2024 10:00 AM EDT Office Visit Orthopedic Surgery - [place] [address] [address] Israel Byrd, DPM [address] [phone] 12/21/2024 10:30 AM EST Appointment [facility] Bone Density [address] [place] [phone] 06/22/2025 8:30 AM EDT Office Visit Pulmonology - [place] [address] [facility] [address] [place] [address] Samantha Almeida, PIOTR [address] [place] [phone] Scheduled Orders Name Type Priority Associated Diagnoses Orde r Schedule BD Bone Density DXA Axial Skeleton Imaging Routine Postmenopausal state 1 Occurrences starting 10/17/2024 until 10/17/2025 documented as of this encounter Visit Diagnoses Diagnosis Postmenopausal state- Primary Asymptomatic postmenopausal status (age-related) (natural) documented in this encounter Additional Health Concerns Assessment Noted Time PHQ-9 Depression Total Score: 1 05/18/19 25 8:48 AM EDT A fall risk assessment has been complete d for the patient 05/17/2024 8:42 AM EDT documented as of this encounter Care Teams Herbologist Relationship Specialty Start Date End Date Odette Mariano MD 175 [facility] [address] [place] [phone] PCP - General Internal Medicine 06/18/18 documented as of this encounter
--- OUTSIDE RECORDS SUMMARY | 2024-11-22 12:53 | XMS_ITS | Encounter Summary ---
Author Organization [facility] Address [address] [place] [address] Care Team Providers Care Meter Tester Primary Name Role Phone Odette Mariano MD Primary Care Provider [phone] Reason for Visit * Reason Onset Date Comments Forms/questionnaires 11/21/2024 National ating Encounter Details Date Type Department Care Team (Late st Contact Info) Description 11/21/2024 Telephone Internal Medicine - [place] 175 [facility] [address] [place] [address] Sharla Tejeda MA Social History Tobacco Use Types Packs/Day [...] as of this encounter Progress Notes * Sharla Tejeda MA - 11/21/2024 2:03 PM EDT [employer] Written order for repairs [id number] Placed in providers folder for signature. documented in this encounter Plan of Treatment Upcoming Encounters Date Type Department Care Team (Late st Contact Info) Description 12/05/2024 10:00 AM EDT Office Visit Orthopedic Surgery - [place] 250 175 [facility] 250 [place] [phone] Israel Byrd, DPM 175 [facility] [address] [place] [phone] 12/21/2024 10:30 AM EST Appointment [facility] Bone Density [address] [place] [phone] 06/22/2025 8:30 AM EDT Office Visit Pulmonology - [place] 175 [facility] 200 [place] [phone] Samantha Almeida, PIOTR [address] [place] [phone] documented as of this encounter Visit Diagnoses Not on filedocumented in this encounter Additional Health Concerns Assessment Noted Time PHQ-9 Depression Total Score: 1 05/18/19 25 8:48 AM EDT A fall risk assessment has been complete d for the patient 05/17/2024 8:42 AM EDT documented as of this encounter Care Teams Meter Tester Primary Relationship Specialty Start Date End Date Odette Mariano MD 175 [facility] 200 [place] [phone] PCP - General Internal Medicine 06/18/18 documented as of this encounter
--- OUTSIDE RECORDS SUMMARY | 2024-11-22 12:53 | XMS_ITS | Patient Health Record ---
Author Organization [facility] Address [address] [facility] [address] [place] [address] Care Team Providers Care Analysis Consultant Name Role Phone Odette Mariano Primary Care [...] gm to each foot Externally BID PRN PAIN; Duration: 30 days Active Advair HFA 45-21 MCG/ACT [...] MG 1 tablet as needed Orally once daily; Duration: 30 day(s) 12/24/2020 Not-Taking Tylenol 325 MG [...] Problem Status W/U Status Risk Notes Problem Metabolic disorder (01602392) Metabolic disorder, unspecified (E88.9) Active confirmed Problem Polyneuropathy (31203648) Polyneuropathy in diseases classified elsewhere (G63) Active confirmed Problem Enthesopathy of foot region (766593298) Capsulitis of metatarsophalangeal (MTP) joint of right foot (M77.51) Active confirmed Problem Polyneuropathy due to type 2 diabetes mellitus (967020019) Type 2 diabetes mellitus with diabetic polyneuropathy, unspecified whether shelter insulin use (E11.42) Active confirmed Problem Hereditary disorder of nervous system (348131600) Neuropathy, 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
--- OUTSIDE RECORDS SUMMARY | 2024-11-22 12:53 | XMS_ITS | Continuity of Care Document ---
Author Name [facility] Address [address] [place] [address] Organization Unknown Address [address] [place] [address] Medications No known medications Problems No known problems
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
--- OUTSIDE RECORDS SUMMARY | 2024-11-22 12:53 | XMS_ITS | Clinical Summary ---
Author Organization [facility] Address [address] [place] [address] Phone Care Team Providers Care It Consulting Manager Name Role Phone Kendal Mariano MD Primary Care Provider [phone] Allergies Active Allergy Reactions Criticality Noted Date Comments Amlodipine Other 06/25/2020 Amoxicillin-Pot Clavulanate 05/06/2021 Moxifloxacin Shortness of breath,Wheezing High 01/25/2013 Benazepril Anaphylaxis,Unknown, Other High 01/25/2013 benazepril House Dust 05/06/2021 Hydralazine Other,Unknown 02/28/2015 hydralazine Ibuprofen Unknown,Other,Rash,S welling 01/09/2009 Swelling/Edema ibuprofen Losartan Other,Nausea Only,Unknown 09/06/2013 losartan Maple Flavor Other,Unknown 01/25/2013 Other reaction(s): Other Severe Maple Flavoring 01/25/2013 Other reaction(s): Other Severe Other reaction(s): Other Severe Other reaction(s): Other Severe Nickel 05/06/2021 Nickel/metal Nifedipine Unknown,Other 02/28/2015 nifedipine Nut - Unspecified 12/24/2017 Peanut Unknown 10/04/2024 Pollen Extracts Unknown 02/28/2015 Prednisone Other,Unknown 02/28/2015 prednisone Pregabalin Other 10/09/2020 Reaction Type: Side Effect Lyrica Tree Nuts 05/05/2017 Medications miscellaneous medical supply misc 1 Each by Does not apply route continuous. 06/05/19 24 Active blood-glucose meter kit 09/17/19 23 Active INCONTINENCE PAD, LINER, DISP MISC Incontinence Supply Disposable ([facility] Incontinence Pads) [facility] Patient si Each by Does not apply route 3 times daily 02/26/19 24 Active magnesium oxide (MAG-OX) 400 mg magnesium tablet Take 1 Tablet by mouth 2 times daily. 06/09/19 24 Active albuterol 2.5 mg /3 mL (0.083 %) nebulizer solution TAKE 1 VIAL VIA NEBULIZATION EVERY 4 HOURS NEEDED FOR WHEEZING FOR UP TO 180 DAYS 08/14/19 24 Active albuterol HFA (PROAIR HFA ; PROVENTIL HFA ; VENTOLIN HFA) 90 mcg/actuation inhaler 05/01/19 23 Active alcohol swabs (Alcohol Prep Pads) pads, medicated USE TOPICALLY TWICE A DAY Active azelastine (ASTELIN) 137 mcg (0.1 %) nasal spray Use in each nostril as directed. 2 Sprays by Each Nare route 2 times daily. - Each Nare Active diclofenac (VOLTAREN) 1 % topical gel 03/12/19 24 Active cetirizine (ZyrTEC) 10 mg tablet Take 1 Tablet by mouth at bedtime Active EPINEPHrine (EpiPen 2-Dexter) 0.3 mg/0.3 mL injection 01/31/20 21 Active ketotifen (Eye Itch Relief) 0.025 % ophthalmic solution Active alcohol swabs pads, medicated GNP Alcohol Swabs 70 % Pads Sig: USE TOPICALLY TWICE A DAY Active loratadine (CLARITIN) 10 mg tablet Take 1 Tablet by mouth every morning. As needed 11/19/19 18 Active TENS UNITS [facility] Nerve Stimulator (TENS Therapy Pain Relief) Device Sig - Route: by Does not apply route. - Does not apply Active omeprazole (PriLOSEC) [address] capsule TAKE 1 CAPSULE BY MOUTH DAILY 08/06/19 24 Active lancets (OneTouch Delica Plus Lancet) 30 gauge USE DIRECTED TO CHECK BLOOD SUGAR TWICE A DAY 2 each 1 12/26/19 24 Active alcohol swabs pads, medicated USE TOPICALLY TWICE A DAY 60 each 2 12/26/19 24 Active acetaminophen (TYLENOL) 325 mg tablet Take 1 tablet (325 mg total) by mouth every 6 (six) hours if needed for mild pain. for pain 90 tablet 2 01/12/20 24 Active alcohol swabs pads, medicated USE TOPICALLY TWICE A DAY 100 each 2 02/17/19 25 Active OneTouch Ultra Test test strip USE TO TEST BLOOD SUGAR TWICE DAILY. 50 strip 02/24/19 25 Active fluticasone propionate (FLONASE) 50 mcg/actuation nasal spray Administer 1 spray into each nostril 2 (two) times a day. 16 g 3 03/31/19 25 Active ammonium lactate (AMLACTIN) 12 % cream MU AA BID AND ESPECIALLY WITHIN 3 MIN OF BATHING 04/12/19 21 Active tacrolimus (PROTOPIC) 0.1 % ointment 04/26/19 25 Active triamcinolone (KENALOG) 0.1 % ointment 04/26/19 25 Active atorvastatin (LIPITOR) 10 mg tablet Take 1 tablet (10 mg total) by mouth at bedtime. 90 tablet 3 05/18/19 25 Active alcohol swabs pads, medicated Apply topically 2 (two) times a day. 100 each 1 07/08/19 25 Active cyclobenzaprine (FLEXERIL) 5 mg tablet Take 1 tablet (5 mg total) by mouth at bedtime. 30 tablet 3 07/19/19 25 Active mometasone (ELOCON) 0.1 % creamIndication s:Rash Apply thin layer to affected area BID for 2 weeks then stop. Avoid face and groin. 30 g 07/21/19 25 Active hydrOXYzine HCL (ATARAX) 10 mg tabletIndicatio ns:Rash Take 1 tablet (10 mg total) by mouth at bedtime as needed for itching. 30 tablet 3 07/21/19 25 Active dextromethorpha n-guaiFENesin (Safe Tussin DM) 10-100 mg/5 mL liquidIndicatio ns:Cough, unspecified type Take 5 mL by mouth every 4 (four) hours if needed for cough. 420 mL 07/21/19 25 Active tazarotene (Tazorac) 0.1 % creamIndication s:Psoriasis (a type of skin inflammation) Apply topically at bedtime. 30 g 08/23/19 25 2025 Active betamethasone dipropionate (DIPROSONE) 0.05 % cream Apply 45 g topically 1 (one) time each day. 09/30/19 25 Active predniSONE (DELTASONE) 20 mg tablet Take 1 tablet (20 mg total) by mouth 1 (one) time each day. 30 each 10/05/19 25 2025 Active doxycycline (ADOXA) 100 mg tablet Take 1 tablet (100 mg total) by mouth 2 (two) times a day. for 10 days 20 tablet 10/05/19 25 Active hydrOXYzine HCL (ATARAX) 25 mg tabletIndicatio ns:Rash Take 1 tablet (25 mg total) by mouth 2 (two) times a day. 60 tablet 3 10/05/19 25 Active alcohol swabs pads, medicated USE TOPICALLY TWICE A DAY 100 each 11 10/21/19 25 Active labetaloL (NORMODYNE) 200 mg tablet TAKE 1 TABLET BY MOUTH TWICE DAILY 60 tablet 11/18/19 25 Active traZODone (DESYREL) 100 mg tablet TAKE 1 TABLET BY MOUTH DAILY AT BEDTIME 30 tablet 11/18/19 25 Active spironolactone (ALDACTONE) 50 mg tablet TAKE 1 TABLET BY MOUTH ONCE DAILY 30 tablet 11/18/19 25 Active glipiZIDE (GLUCOTROL XL) 5 mg 24 hr tablet TAKE 1 TABLET BY MOUTH ONCE DAILY 30 tablet 11/18/19 25 Active levothyroxine (SYNTHROID, LEVOTHROID) 100 mcg tablet TAKE 1 TABLET BY MOUTH ONCE DAILY 30 tablet 11/18/19 25 Active magnesium oxide (MAG-OX) 400 mg (241.3 elemental magnesium) tablet TAKE 1 TABLET BY MOUTH TWICE DAILY. 60 tablet 11/18/19 25 Active calcium carbonate-vitam in D 600 mg-10 mcg (400 unit) per tablet TAKE 1 TABLET BY MOUTH TWICE DAILY 60 tablet 11/18/19 25 Active labetaloL (NORMODYNE) 200 mg tablet TAKE 1 TABLET BY MOUTH TWICE DAILY 60 tablet 10/21/19 25 2024 Discontinued traZODone (DESYREL) 100 mg tablet TAKE 1 TABLET BY MOUTH DAILY AT BEDTIME 30 tablet 10/21/19 25 2024 Discontinued spironolactone (ALDACTONE) 50 mg tablet TAKE 1 TABLET BY MOUTH ONCE DAILY 30 tablet 10/21/19 25 2024 Discontinued glipiZIDE (GLUCOTROL XL) 5 mg 24 hr tablet TAKE 1 TABLET BY MOUTH ONCE DAILY 30 tablet 10/21/19 25 2024 Discontinued levothyroxine (SYNTHROID, LEVOTHROID) 100 mcg tablet TAKE 1 TABLET BY MOUTH ONCE DAILY 30 tablet 10/21/19 25 2024 Discontinued magnesium oxide (MAG-OX) 400 mg (241.3 elemental magnesium) tablet TAKE 1 TABLET BY MOUTH TWICE DAILY. 60 tablet 10/21/19 25 2024 Discontinued calcium carbonate-vitam in D 600 mg-10 mcg (400 unit) per tablet TAKE 1 TABLET BY MOUTH TWICE DAILY 60 tablet 10/21/19 25 2024 Discontinued Active Problems Problem Noted Date Diagnosed Date [...] A1c; Future Type 2 diabetes mellitus without complication Overview (11/09/2024): 11/09/24 Regulatory IMO Update Assessment & Plan (05/17/2024 10:19 AM EDT): [...] Encounters Date Type Department Care Team Description 11/21/2024 Telephone Internal Medicine [facility] [address] [facility] [address] [place] [address] Sharla Tejeda MA 10/17/2024 8:28 PM EDT - 10/18/2024 1:41 AM EDT Emergency [facility] Emergency [address] [place] [address] Dez Stout MD Rash (Primary Dx) Discharge Disposition: Home or Self Care 10/17/2024 Telephone Internal Medicine - [place] [address] [facility] [address] [place] [address] Kendal Mariano MD 10/06/2024 Telephone Obst[facility]s [facility] [address] [place] [address] Kendal Mariano MD 10/04/2024 9:00 AM EDT Office Visit Orthopedic Surgery [facility] [address] [facility] [address] [place] [phone] Israel Byrd, DPM Tendinitis of right ankle (Primary Dx); Plantar fascial fibromatosis [M72.2]; Tendinitis of left ankle; Ingrowing nail; Primary osteoarthritis of both feet; Type 2 diabetes mellitus without complication, without long-term current use of insulin ([facility] V24, [facility] V28); Pain in toe of right foot; Dermatophytosis of nail; Pain in toe of left foot; Diabetic mononeuropathy simplex (CMS/[facility] V24, [facility] V28) 10/04/2024 8:30 AM EDT Office Visit Internal Medicine - [place] [address] [facility] [address] [place] [address] Kendal Mariano MD Rash (Primary Dx); Hypothyroidism due to acquired atrophy of thyroid; Hypomagnesemia; Primary hypertension 09/29/2024 Telephone Internal Medicine - [place] [address] [facility] [address] [place] [address] Kendal Mariano MD 09/09/2024 Telephone Infectious Disease - [place] [address] [facility] [address] [place] [address] Luba Chacon RN from Last 3 Months Immunizations Immunization Administration Dates Next Due Moderna SARS-CoV-2 COVID-19, [...] Type 2 diabetes mellitus wit hout complication 10/29/2017 DX:Type 2 diabetes mellitus without complication (HCC) Umbilical hernia 01/14/2016 DX:Umbilical he rnia Vitamin [...] AM EDT Sexual Orientation Not on file Obstetrics History Last Filed Vital Signs Vital Sign Reading Time Taken Comments Blood Pressure 142/78 10/17/2024 9:13 PM EDT Pulse 52 10/17/2024 9:13 PM EDT Temperature 36.7 C (98.1 F) 10/17/2024 9:13 PM EDT Respiratory Rate 17 10/17/2024 9:13 PM EDT Oxygen Saturation 97% 10/17/2024 9:13 PM EDT Inhaled Oxygen Concentration - - Weight 73.9 kg (163 lb) 10/17/2024 3:54 PM EDT Height 149.9 cm (4' 11 ) 10/17/2024 3:54 PM EDT Body Mass Index 32.92 10/17/2024 3:54 PM EDT Plan of Treatment Upcoming Encounters Date Type Department Care Team (Late st Contact Info) Description 12/05/2024 10:00 AM EDT Office Visit Orthopedic Surgery - [place] [address] [phone] Israel Byrd, DPM [address] [phone] 12/21/2024 10:30 AM EST Appointment [facility]ensity [address] [place] [phone] 06/22/2025 8:30 AM EDT Office Visit Pulmonology - [place] [address] [facility] [address] [place] [phone] Samantha Almeida, PIOTR [address] [place] [phone] Health Maintenance Due Date Last Done Comments Diabetes: Annual Foot Exam 1964 RSV Immunization Adult Patients (1 - Risk 50-74 years 1-dose series) 2004 Zoster Vaccines (2 of 2) 11/17/2017 09/22/2017, 05/11 Osteoporosis Screening (Bone Density Screening) 01/18/2022 Social Influencers of Health Screening 01/18/2022 Diabetes: Annual Urine Albumin-Creatinine Ratio (uACR) 01/19/2022 06/01/2019 Diabetes: Annual Retina Eye Exam 04/07/2024 04/07/2023 COVID-19 Vaccine (8 - Pfizer risk season) 2024 10/16/2023, 10/29/2022, 06/18/2022, Additional history exists Influenza Vaccine (#1) 2024 , 10/27/2022, 10/21/2021, Additional history exists Diabetes: Blood Sugar Control Test (HGBA1C) 12/22/2024 06/21/2024, 10/27/2023, 10/27/2023, Additional history exists Falls Risk Assessment 05/17/2025 05/17/2024 Medicare Annual Wellness Visit 05/17/2025 05/17/2024 Breast Cancer Screening 07/19/2025 07/20/19 24, 07/15/2022, 07/10/2021, Additional history exists Diabetes: Annual GFR (Glomerular Filtration Rate) 10/17/2025 10/17/2024, 09/16/2024, 06/21/2024, Additional history exists Hypertension/CHF/CAD Annual BMP Blood Test 10/17/2025 10/17/2024, 09/16/2024, 06/21/2024, Additional history exists Colorectal Cancer Screening: Colonoscopy 12/03/2025 12/03/2020 Cholesterol Screening (Lipid Panel) 06/17/2028 06/18/2023, 06/18/2023 DTaP,Tdap,and Td Vaccines (3 - Td or Tdap) 08/11/2030 08/11/2020, 02/28/2015 Pneumococcal Vaccine: 50+ Years Completed 09/15/2022, 11/18/2019 Depression Screening Completed 05/17/2024, 06/09/19 Hepatitis C Screening Completed 08/17/2024 HIB Vaccines Aged Out No longer eligi [...] Procedure Name Priority Date/Time Associated Diagnosis Comments URINALYSIS WITH REFLEX MICROSCOPIC STAT 10/17/2024 11:40 PM EDT URINALYSIS WITH REFLEX MICROSCOPIC STAT 10/17/2024 11:40 PM EDT IRIZARRY URINE CULTURE TUBE Routine 10/17/2024 10:40 PM EDT EXTRA TUBES Routine 10/17/2024 10:40 PM EDT IRIZARRY URINE CULTURE TUBE Routine 10/17/2024 10:40 PM EDT EXTRA TUBES Routine 10/17/2024 10:40 PM EDT POCT GLUCOSE BLOOD Routine 10/17/2024 10 :18 PM EDT SEDIMENTATION RATE STAT Add-on 10/17/2024 4: 48 PM EDT CREATINE KINASE Add-On 10/17/2024 4:48 PM EDT MAGNESIUM STAT Add-on 10/17/2024 4:48 PM EDT C-REACTIVE PROTEIN STAT Add-on 10/17/2024 4: 48 PM EDT CBC WITH AUTO DIFFERENTIAL STAT 10/17/2024 4:48 PM EDT BASIC METABOLIC PANEL STAT 10/17/2024 4:48 PM EDT CBC AND DIFFERENTIAL STAT 10/17/2024 4:48 PM EDT CBC WITH AUTO DIFFERENTIAL Routine 09/16/2024 8:33 AM EDT Itch of skin Atopic eczema VITAMIN D 25 HYDROXY Routine 09/16/2024 8:33 AM EDT Itch of skin Atopic eczema THYROID STIMULATING HORMONE Routine 09/16/2024 8:33 AM EDT Itch of skin Atopic eczema TRYPTASE Routine 09/16/2024 8:33 AM EDT Itch of skin Atopic eczema IMMUNOGLOBULINS IGG, IGA, IGM Routine 09/16/2024 8:33 AM EDT Itch of skin Atopic eczema IMMUNOGLOBULIN IGE Routine 09/16/2024 8: 33 AM EDT Itch of skin Atopic eczema THYROXINE FREE Routine 09/16/2024 8:33 AM EDT Itch of skin Atopic eczema SEDIMENTATION RATE Routine 09/16/2024 8: 33 AM EDT Itch of skin Atopic eczema C-REACTIVE PROTEIN Routine 09/16/2024 8: 33 AM EDT Itch of skin Atopic eczema COMPREHENSIVE METABOLIC PANEL Routine 09/16/2024 8:33 AM EDT Itch of skin Atopic eczema CBC AND DIFFERENTIAL Routine 09/16/2024 8:33 AM EDT Itch of skin Atopic eczema C4 COMPLEMENT Routine 09/16/2024 8:33 AM EDT Itch of skin Atopic eczema MIKKI IFA WITH TITER AND PATTERN Routine 09/16/2024 8:33 AM EDT Itch of skin Atopic eczema HEPATITIS C ANTIBODY Routine 08/17/2024 11:20 AM EDT Rash HEMOGLOBIN A1C Routine 06/21/2024 8:02 AM EDT Encounter for subsequent annual wellness visit (AWV) in Medicare patient Depression, unspecified depression type Type 2 diabetes mellitus without complication, without long-term current use of insulin ([facility] V24, [facility] V28) Hypothyroidism, unspecified type [facility] SCREENING DIGITAL Routine 07/20/2023 10:42 AM EDT Encounter for screening mammogram for malignant neoplasm of breast LIPID PANEL Routine 06/18/2023 DEPRESSION SCREENING Routine 06/09/2023 DIABETES EYE EXAM Routine 04/07/2023 COLONOSCOPY Routine 12/03/2020 URINE ALBUMIN CREATININE RATIO Routine 06/01/2019 from Last 3 Months or Most Recently Relevant to Health Maintenance Results * Urinalysis with reflex microscopic (10/17/2024 11:40 PM EDT) Pathologist [facility] Specific [place] Urine 1.013 1.003 - 1.030 LAB URINALYSIS - AUTOMATED METHOD 10/18/2024 12:40 AM [facility] pH, Urine 6.0 5.0 - 8.0 pH LAB URINALYSIS - AUTOMATED METHOD 10/18/2024 12:40 AM [facility] Leukocytes, Urine Negative Negative LAB URINALYSIS - AUTOMATED METHOD 10/18/2024 12:40 AM [facility] Nitrite, Urine Negative Negative LAB URINALYSIS - AUTOMATED METHOD 10/18/2024 12:40 AM [facility] Protein, Urine Negative <=Trace mg/dL LAB URINALYSIS - AUTOMATED METHOD 10/18/2024 12:40 AM [facility] Glucose, Urine Negative Negative mg/dL LAB URINALYSIS - AUTOMATED METHOD 10/18/2024 12:40 AM [facility] Ketones, Urine Negative Negative mg/dL LAB URINALYSIS - AUTOMATED METHOD 10/18/2024 12:40 AM [facility] Urobilinogen, Urine 0.2 0.2 - 1.0 mg/dL LAB URINALYSIS - AUTOMATED METHOD 10/18/2024 12:40 AM [facility] Bilirubin, Urine Negative Negative LAB URINALYSIS - AUTOMATED METHOD 10/18/2024 12:40 AM [facility] Blood, Urine Negative Negative LAB URINALYSIS - AUTOMATED METHOD 10/18/2024 12:40 AM [facility] Urine Urine specimen obtained by clean catch procedure / Unknown Non-blood Collection / Unknown 10/17/2024 11:40 PM EDT 10/18/2024 12:29 AM EDT us Dez Stout MD LAB URINE ORDERABLES Final R esult [facility] [address] [place] [address], [place] [phone] * Irizarry urine culture tube (10/17/2024 10:40 PM EDT) Only the most recent of2 resultswithin the time period is included. Pathologist [facility] Extra Tube Hold for add-ons. 10/18/2024 2:01 AM EDT [facility] Comment:Auto resulted. Urine Urine specimen obtained by clean catch procedure / Unknown Non-blood Collection / Unknown 10/17/2024 10:40 PM EDT 10/18/2024 12:32 AM EDT us Dez Stout MD LAB URINE ORDERABLES Final R esult Performing Organization Address City/[facility]/ZIP Co de Phone Number [facility] [address] [place] [address], * POCT Glucose, blood (10/17/2024 10:18 PM EDT) [facility] Glucose POCT 94 70 - 100 mg/dL 10/17/2024 10:18 PM EDT [facility] Blood Capillary blood specimen / Unknown 10/17/2024 10:18 PM EDT 10/17/2024 10:20 PM EDT us Dez Stout MD LAB POINT OF CARE TE ST DOCKED DEVICE UNSOLICITED RESULTS Final Result Performing Organization Address City/[facility]/ZIP Co de Phone Number [facility] [address] [place] [address], [place] [phone] * (ABNORMAL) CBC auto differential (10/17/2024 4:48 PM EDT) Only the most recent of2 resultswithin the time period is included. WBC 7.7 4.8 - 10.8 K/[facility] LAB HEMETOLOGY METHOD 10/17/2024 4:59 PM EDT [facility] RBC 5.00(H) 3.80 - 4.80 M/mcL LAB HEMETOLOGY METHOD [facility]24 [facility] Hemoglobin 14.3 11.5 - 16.0 g/dL LAB HEMETOLOGY METHOD 10/17/2024 4:59 [facility] Hematocrit 44.8 35.0 - 47.0 % LAB HEMETOLOGY METHOD 10/17/2024 4:59 PM EDT [facility] MCV 90.5 79.0 - 98.0 FL LAB HEMETOLOGY METHOD 10/17/2024 4:59 [facility] MCH 28.9 27.0 - 32.0 pcg LAB HEMETOLOGY METHOD 10/17/2024 4:59 PM [facility] MCHC 31.9(L) 32.0 - 37.0 g/dL LAB HEMETOLOGY METHOD 10/17/2024 4:59 PM [facility] RDW 14.6 11.0 - 15.0 % LAB HEMETOLOGY METHOD 10/17/2024 4:59 [facility] Platelets 227 130 - 400 K/mcL LAB HEMETOLOGY METHOD 10/17/2024 4:59 [facility] MPV 9.5 7.0 - 11.0 FL LAB HEMETOLOGY METHOD 10/17/2024 4:59 [facility] NRBC 0.0 <1.0 % LAB HEMETOLOGY METHOD 10/17/2024 4:59 [facility] NRBC Absolute 0.00 <0.10 K/mcL LAB HEMETOLOGY METHOD 10/17/2024 4:59 [facility] Neutrophils Relative 60.0 % LAB HEMETOLOGY METHOD 10/17/2024 4:59 [facility] Lymphocytes Relative 27.6 % LAB HEMETOLOGY METHOD 10/17/2024 4:59 PM EDT [facility] Monocytes Relative 8.8 % LAB HEMETOLOGY METHOD 10/17/2024 4:59 PM EDT [facility] Eosinophils Relative 2.3 % LAB HEMETOLOGY METHOD 10/17/2024 4:59 PM EDT [facility] Basophils Relative 0.9 % LAB HEMETOLOGY METHOD 10/17/2024 4:59 PM EDT [facility] Immature Granulocytes Relative 0.4 % LAB HEMETOLOGY METHOD 10/17/2024 4:59 PM EDT [facility] Neutrophils Absolute 4.61 1.50 - 7.00 K/mcL LAB HEMETOLOGY METHOD 10/17/2024 4:59 PM EDT [facility] Lymphocytes Absolute 2.12 1.00 - 5.00 K/mcL LAB HEMETOLOGY METHOD 10/17/2024 4:59 PM EDT [facility] Monocytes Absolute 0.68 0.20 - 1.00 K/mcL LAB HEMETOLOGY METHOD 10/17/2024 4:59 PM EDT [facility] Eosinophils Absolute 0.18 0.00 - 0.50 K/mcL LAB HEMETOLOGY METHOD 10/17/2024 4:59 PM EDT [facility] Basophils Absolute 0.07 0.00 - 0.20 K/mcL LAB HEMETOLOGY METHOD 10/17/2024 4:59 PM EDT [facility] Immature Granulocytes Absolute 0.03 0.00 - 0.03 K/mcL LAB HEMETOLOGY METHOD 10/17/2024 4:59 PM [facility] Blood Venous blood specimen / Unknown Venipuncture / Unknown 10/17/2024 4:48 PM EDT 10/17/2024 4:53 PM EDT Lee Mcdonald MD LAB BLOOD ORDERABLES Final Result Performing Organization Address City/[facility]/ZIP Co de Phone Number [facility] [address] [place] [address], [place] [phone] * Sedimentation rate (10/17/2024 4:48 PM EDT) Only the most recent of2 resultswithin the time period is included. [facility] Sed Rate 22 0 - 30 mm/hr LAB HEMETOLOGY METHOD 10/17/2024 9:47 PM EDT [facility] Blood Venous blood specimen / Unknown Venipuncture / Unknown 10/17/2024 4:48 PM EDT 10/17/2024 4:53 PM EDT Dez Stout MD LAB BLOOD ORDERABLES Final R esult Performing Organization Address [facility] Co de Phone Number [facility] [address] [place] [address], [place] [phone] * C-reactive protein (10/17/2024 4:48 PM EDT) Only the most recent of2 resultswithin the time period is included. [facility] C-Reactive Protein <0.29 <=0.50 mg/dL LAB CHEMISTRY METHOD 10/17/2024 9:29 PM EDT [facility] Blood Venous blood specimen / Unknown Venipuncture / Unknown 10/17/2024 4:48 PM EDT 10/17/2024 4:53 PM EDT Dez Stout MD LAB BLOOD ORDERABLES Final R esult Performing Organization Address [facility]/ZIP Co de Phone Number [facility] [address] [place] [address], [place] [phone] * Magnesium (10/17/2024 4:48 PM EDT) [facility] Magnesium 1.9 1.9 - 2.6 mg/dL LAB CHEMISTRY METHOD 10/17/2024 9:29 PM EDT [facility] Blood Venous blood specimen / Unknown Venipuncture / Unknown 10/17/2024 4:48 PM EDT 10/17/2024 4:53 PM EDT Dez Stout MD LAB BLOOD ORDERABLES Final R esult Performing Organization Address City/[facility]/ZIP Co de Phone Number [facility] [address] [place] [address], [place] [phone] * Creatine kinase (10/17/2024 4:48 PM EDT) [facility] Total CK 111 22 - 269 unit/L LAB CHEMISTRY METHOD 10/17/2024 9:29 PM EDT [facility] Blood Venous blood specimen / Unknown Venipuncture / Unknown 10/17/2024 4:48 PM EDT 10/17/2024 4:53 PM EDT Dez Stout MD LAB BLOOD ORDERABLES Final R esult Performing Organization Address City/[facility]/ZIP Co de Phone Number [facility] [address] [place] [address], [place] [phone] * (ABNORMAL) Basic metabolic panel (10/17/2024 4:48 PM EDT) [facility] Sodium 137 133 - 145 mmol/L LAB CHEMISTRY METHOD 10/17/2024 5:20 PM EDT [facility] Potassium 4.2 3.5 - 5.5 mmol/L LAB CHEMISTRY METHOD 10/17/2024 5:20 PM EDT [facility] Chloride 105 96 - 110 mmol/L LAB CHEMISTRY METHOD 10/17/2024 5:20 PM EDT [facility] CO2 29 21 - 32 mmol/L LAB CHEMISTRY METHOD 10/17/2024 5:20 PM [facility] Anion Gap 3 3 - 11 LAB CHEMISTRY METHOD 10/17/2024 5:20 PM [facility] Glucose 131(H) 70 - 100 mg/dL LAB CHEMISTRY METHOD 10/17/2024 5:20 PM [facility] BUN 19 5 - 25 mg/dL LAB CHEMISTRY METHOD 10/17/2024 5:20 PM [facility] Creatinine 1.17(H) 0.50 - 1.10 mg/dL LAB CHEMISTRY METHOD 10/17/2024 5:20 PM [facility] eGFR 50(L) >=60 mL/min/1. 73m2 LAB CHEMISTRY METHOD 10/17/2024 5:20 PM [facility] Comment:Calculation based on the Chronic Kidney Disease Epidemiology Collaboration (CKD-EPI) equation refit without adjustment for race. BUN/Creatinine Ratio 16.2 LAB CHEMISTRY METHOD 10/17/2024 5:20 PM [facility] Calcium 9.0 8.5 - 10.5 mg/dL LAB CHEMISTRY METHOD 10/17/2024 5:20 PM [facility] Blood Venous blood specimen / Unknown Venipuncture / Unknown 10/17/2024 4:48 PM EDT 10/17/2024 4:53 PM EDT us Lee Mcdonald MD LAB BLOOD ORDERABLES Final Result [facility] [address] [place] [address], * MIKKI IFA with titer and pattern (09/16/2024 8:33 AM EDT) MIKKI Negative Negative 09/16/2024 12:35 PM EDT [facility] Comment:MIKKI performed by ind irect immunofluorescence (IFA) using HEp-2 substrate. Blood Venous blood specimen / Unknown Venipuncture / Unknown 09/16/2024 8:33 AM EDT 09/16/2024 9:18 AM EDT Israel SHARMA LAB BLOOD ORDERABLES Fin al Result [facility] [address] [place] [address], [place] [phone] * Tryptase (09/16/2024 8:33 AM EDT) Tryptase 6 <11 ug/L 09/20/2024 11:49 AM EDT [facility] Comment: Test performed at [facility], [address] , [place] [address] Heike Verdin MD, PhD - Hat [employer] Blood Venous blood specimen / Unknown Venipuncture / Unknown 09/16/2024 8:33 AM EDT 09/16/2024 9:19 AM EDT Israel SHARMA LAB BLOOD ORDERABLES Fin al Result Performing Organization Address [facility]/ZIP Co de Phone Number [facility] [address] [place] [address] * Vitamin D 25 hydroxy (09/16/2024 8:33 AM EDT) Vit D, 25-Hydroxy 31.7 30.0 - 80.0 ng/mL LAB CHEMISTRY METHOD 09/16/2024 11:49 AM EDT [facility] Blood Venous blood specimen / Unknown Venipuncture / Unknown 09/16/2024 8:33 AM EDT 09/16/2024 9:19 AM EDT Israel SHARMA LAB BLOOD ORDERABLES Fin al Result [facility] [address] [place] [address], [place] [phone] * Immunoglobulins IgG, IgA, IgM (09/16/2024 8:33 AM EDT) Total IgG 769 549 - 1,584 mg/dL LAB CHEMISTRY METHOD 09/16/2024 10:23 AM EDT [facility] IgA 174 61 - 348 mg/dL LAB CHEMISTRY METHOD 09/16/2024 10:23 AM EDT [facility] IgM 31 23 - 259 mg/dL LAB CHEMISTRY METHOD 09/16/2024 10:23 AM EDT [facility] Blood Venous blood specimen / Unknown Venipuncture / Unknown 09/16/2024 8:33 AM EDT 09/16/2024 9:19 AM EDT Israel SHARMA LAB BLOOD ORDERABLES Fin al Result Performing Organization Address [facility]/ZIP Co de Phone Number [facility] [address] [place] [address], * C4 complement (09/16/2024 8:33 AM EDT) Pathologist [facility] C4 Complement 28 16 - 47 mg/dL LAB CHEMISTRY METHOD 09/16/2024 10:23 AM EDT [facility] Blood Venous blood specimen / Unknown Venipuncture / Unknown 09/16/2024 8:33 AM EDT 09/16/2024 9:19 AM EDT Israel SHARMA LAB BLOOD ORDERABLES Fin al Result [facility] [address] [place] [address], [place] [phone] * Thyroid stimulating hormone (09/16/2024 8:33 AM EDT) Pathologist [facility] TSH 3.58 0.40 - 4.00 mcIU/mL LAB CHEMISTRY METHOD 09/16/2024 11:50 AM EDT [facility] Blood Venous blood specimen / Unknown Venipuncture / Unknown 09/16/2024 8:33 AM EDT 09/16/2024 9:19 AM EDT Israel SHARMA LAB BLOOD ORDERABLES Fin al Result Performing Organization Address [facility] Co de Phone Number [facility] [address] [place] [address], [place] [phone] * Thyroxine free (09/16/2024 8:33 AM EDT) Free T4 0.93 0.70 - 1.80 ng/dL LAB CHEMISTRY METHOD 09/16/2024 11:49 AM EDT [facility] Blood Venous blood specimen / Unknown Venipuncture / Unknown 09/16/2024 8:33 AM EDT 09/16/2024 9:19 AM EDT Israel SHARMA LAB BLOOD ORDERABLES Fin al Result Performing Organization Address [facility] de Phone Number [facility] [address] [place] [address], [place] [phone] * Immunoglobulin IgE (09/16/2024 8:33 AM EDT) IgE <2.5 0.0 - 158.0 I Unit/mL LAB CHEMISTRY METHOD 09/16/2024 11:50 AM EDT [facility] Blood Venous blood specimen / Unknown Venipuncture / Unknown 09/16/2024 8:33 AM EDT 09/16/2024 9:19 AM EDT Israel SHARMA LAB BLOOD ORDERABLES Fin al Result Performing Organization Address [facility] Co de Phone Number [facility] [address] [place] [address], [place] [phone] * (ABNORMAL) Comprehensive metabolic panel (09/16/2024 8:33 AM EDT) [facility] Signature Sodium 141 133 - 145 mmol/L LAB CHEMISTRY METHOD 09/16/2024 10:23 AM [facility] Potassium 4.0 3.5 - 5.5 mmol/L LAB CHEMISTRY METHOD 09/16/2024 10:23 AM [facility] Chloride 111(H) 96 - 110 mmol/L LAB CHEMISTRY METHOD 09/16/2024 10:23 AM [facility] CO2 24 21 - 32 mmol/L LAB CHEMISTRY METHOD 09/16/2024 10:23 AM [facility] Anion Gap 6 3 - 11 LAB CHEMISTRY METHOD 09/16/2024 10:23 AM [facility] Glucose 50(L) 70 - 100 mg/dL LAB CHEMISTRY METHOD 09/16/2024 10:23 AM [facility] BUN 14 5 - 25 mg/dL LAB CHEMISTRY METHOD 09/16/2024 10:23 AM [facility] Creatinine 1.12(H) 0.50 - 1.10 mg/dL LAB CHEMISTRY METHOD 09/16/2024 10:23 AM [facility] eGFR 53(L) >=60 mL/min/1. 73m2 LAB CHEMISTRY METHOD 09/16/2024 10:23 AM [facility] Comment:Calculation based on the Chronic Kidney Disease Epidemiology Collaboration (CKD-EPI) equation refit without adjustment for race. BUN/Creatinine Ratio 12.5 LAB CHEMISTRY METHOD 09/16/2024 10:23 AM [facility] Calcium 9.3 8.5 - 10.5 mg/dL LAB CHEMISTRY METHOD 09/16/2024 10:23 AM [facility] AST (SGOT) 16 10 - 42 unit/L LAB CHEMISTRY METHOD 09/16/2024 10:23 AM [facility] ALT (SGPT) 35 10 - 60 unit/L LAB CHEMISTRY METHOD 09/16/2024 10:23 AM EDT [facility] Alkaline Phosphatase 70 42 - 121 unit/L LAB CHEMISTRY METHOD 09/16/2024 10:23 AM EDT [facility] Total Protein 6.5 6.0 - 8.0 g/dL LAB CHEMISTRY METHOD 09/16/2024 10:23 AM EDT [facility] Albumin 3.8 3.2 - 5.0 g/dL LAB CHEMISTRY METHOD 09/16/2024 10:23 AM EDT [facility] Total Bilirubin 0.5 0.0 - 1.4 mg/dL LAB CHEMISTRY METHOD 09/16/2024 10:23 AM EDT [facility] Blood Venous blood specimen / Unknown Venipuncture / Unknown 09/16/2024 8:33 AM EDT 09/16/2024 9:19 AM EDT us Israel SHARMA LAB BLOOD ORDERABLES Fin al Result [facility] [address] [place] [address], * Hepatitis C antibody (08/17/2024 11:20 AM EDT) Hepatitis C Antibody Negative Negative LAB CHEMISTRY METHOD 08/17/2024 3:26 PM EDT [facility] Blood Venous blood specimen / Unknown Venipuncture / Unknown 08/17/2024 11:20 AM EDT 08/17/2024 11:20 AM EDT Maria De Jesus Holcomb NP LAB BLOOD ORDERABLES Final Resul t [facility] [address] [place] [address], * Hemoglobin A1c (06/21/2024 8:02 AM EDT) Hemoglobin A1C 6.1 <6.5 % LAB CHEMISTRY METHOD 06/21/2024 10:48 AM EDT [facility] Mean Bld Glu Estim. 128 mg/dL LAB CHEMISTRY METHOD 06/21/2024 10:48 AM EDT [facility] Blood Venous blood specimen / Unknown Venipuncture / Unknown 06/21/2024 8:02 AM EDT 06/21/2024 8:40 AM EDT us Kendal Mariano MD LAB BLOOD ORDERABLES Final Res ult [facility] [address] [place] [address], * MIMI SCREENING DIGITAL (07/20/2023 10:42 AM EDT) Anatomical Region Laterality Modality Mammography 07/20/2023 9:02 AM EDT Narrative 07/20/2023 10:42 AM EDT [facility] Diagnostic Imaging Department [address] [place] [address] Patient: JESSICA BECKWITH/Age/Sex: 1955 - 68 - F Unit#: [id number] Location/Status: SPDIMAM/REG CLI Mnemonic/Ordering Site: DIGSC/SPMAM Ordering Physician: KENDAL MARIANO MD [facility] Screening Digital - 07/20/23923 Report Status:Signed EXAM: [facility] Screening Digital EXAM DATE AND TIME: 07/20/2023 9:25 AM HISTORY: Screening. Previous left breast biopsy, pathology benign. COMPARISON: 07/15/22, 07/10/21, 07/04/20 TECHNIQUE: Bilateral digital breast tomosynthesis was performed in the CC and MLO projections. Computer aided detection with Dagne Dover 3D 3.1 was employed. TISSUE DENSITY: a. The breasts are almost entirely fatty. FINDINGS: No suspicious masses, grouped microcalcifications, or areas of architectural distortion are seen. Benign micro and macrocalcifications are again seen. A biopsy marker is present in the left breast. Vascular calcification is present. The skin is unremarkable. IMPRESSION: Stable mammographic appearance of the breasts. No evidence of malignancy is seen. A negative mammogram in the presence of a clinically suspicious palpable abnormality does not preclude the possibility of malignancy or alter the indications for biopsy. BI-RADS: Category 2: Benign RECOMMENDATION(S): 1: Routine screening mammogram BILATERAL in 1 year. Dictating Physician: ALDA NICE MD Electronically Signed by: ALDA NICE MD Dic Date/Time: 07/20/23 1040 Sign date/Time: 07/20/23 1042 Procedure Note Alda Nice MD - 11/25/2023 [facility] Diagnostic Imaging Department [address] [place] [id number] Patient: JESSICA BECKWITH /Age/Sex: 1955 - 68 - F Unit#: [id number] Location/Status: [facility]/REG CLI Mnemonic/Ordering Site: DIGSC/SPMAM Ordering Physician: KENDAL MARIANO MD [facility] Screening Digital - 07/20/23 - 923 Report Status:Signed EXAM: [facility] Screening Digital EXAM DATE AND TIME: 07/20/2023 9:25 AM HISTORY: Screening. Previous left breast biopsy, pathology benign. COMPARISON: 07/15/22, 07/10/21, 07/04/20 TECHNIQUE: Bilateral digital breast tomosynthesis was performed in the CCand MLO projections. Computer aided detection with Dagne Dover 3D 3.1was employed. TISSUE DENSITY: a. The [...] Date/Time: 07/20/23 1040 Sign date/Time: 07/20/23 1042 Kendal Mariano MD IMG BI PROCEDURES Final Result * Lipid panel (06/18/2023) LDL/HDL Ratio 3 0 - 4 Triglycerides 80 0 - 150 mg/dL Cholesterol 159 0 - 200 mg/dL HDL 55 >=40 mg/dL LDL Cholesterol 88 0 - 100 mg/dL Blood Venous blood specimen / Unknown Historical Provider LAB BLOOD ORDERABLES Nirmala l Result * Hm Depression Screening (06/09/2023) Pathologist [facility] Depression Screening abstracted Historical Provider HEALTH MAINTENANCE Final Result * Diabetes Eye Exam (04/07/2023) Pathologist [facility] Diabetes: Annual Retina Eye Exam abstracted Historical Provider HEALTH MAINTENANCE Final Result * Colonoscopy (12/03/2020) Pathologist [facility] Colonoscopy no interpreta tion,abstr acted Anatomical Region Laterality Modality Other Historical Provider HEALTH MAINTENANCE Final Result * Urine Albumin Creatinine Ratio (06/01/2019) Pathologist [facility] Urine Albumin Creatinine Ratio abstracted Historical Provider HEALTH MAINTENANCE Final Result from Last 3 Months or Most Recently Relevant to Health Maintenance Insurance [employer] MEDICARE Member Subscriber Plan / Payer (Ef fective 2020-Present) Name:JESSICA BECKWITH Relation to Subscriber:Self Name:Jessica Beckwith Payer ID:[id number] Group ID:[id number] Type:Not on file Address: [place] [address] [address] [phone] Advance Directives Documents on File Type Date Recorded 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
--- OUTSIDE RECORDS SUMMARY | 2024-11-22 12:53 | XMS_ITS | Clinical Summary ---
Author Organization [facility] Address [address] [place] [address] Care Team Providers Care Svp Chief Marketing Officer Name Role Phone Vianney Day MD Primary [...] 1 - PCV) 04/20/2019 Influenza Vaccine (#1) 2024 RSV Adult > 60+ Yrs or Pregn ant (1 - 1-dose 75+ series) 2029 Hepatitis B Vaccines Aged Out No long er eligible based on patient's age to complete this topic RSV Ped < 20 months Aged Out No longe r eligible based on patient's age to complete this topic Care Teams Svp Chief Marketing Officer Relationship Specialty Start Date End Date Vianney Day MD PCP - General Internal Medicine 04/16/17
--- OUTSIDE RECORDS SUMMARY | 2024-11-22 12:53 | XMS_ITS | Encounter Summary ---
Author Organization [facility] Address [address] [place] [address] Encounters * 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 Chronic rash on/off for last 6-7 months. Recently seen in the ED for symptoms. Was prescribed Hydroxyzine for symptoms. Worsening itchiness today. Denies shortness of breath, wheezing, drooling/difficulty swallowing, tongue swelling. Has follow up scheduled with deaf and hard of hearing teacher in December - follow up with PCP tomorrow. Collateral history: syphilis, also taking cyclosporine regularly. 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 Rhiannon reporting chronic rash over her body over the last 6-07 months>not going away even with antiitch >pt is unsure if it could be related>>DENIES fever>DENIES swollen tongue>NO anaphylaxis, no difficulty breathing , patientReports : , denies&q uot;:[], chiefComplaints : Rash , pmh : Chronic Kidney Disease, Hypertension, Hyperlipidemia, Diabetes Mellitus Type 2, Chronic Back Pain, Gastroesophageal Reflux Disease (GERD), COPD/Asthma, Psoriasis, Eczema , allergies : Tree Nut, Peanut, Ibuprofen, Avelox, Benazepril, Cymbalta, Savella, Famotidine, Lyrica, Nifedipine , otherAllergies : , painAssessment : , visitOutcome : &quot ;, additionalComments : Reviewed HPI. } Encountered patient conscious, alert and ambulatory. Patient reports a rash covering most of her body that has been developing over the past seven months is causing pain and itching. Patient denies chest pain, shortness of breath, fevers, epistaxis, hematuria and bloody stool. Patient additionally states that she feels her prescribed Labetalol and atorvastatin are causing the rashes, as she has discontinued use without authorization of her doctor, and offers moderate relief in her symptoms. Patient went approximately one week without Labetalol and Atorvastatin but took one Labetalol last night and reports itching and discomfort approximately 30-45 minutes later. Patient states she is seeing her lactation specialist on 11/08/24. Skin warm, dry and exhibits diffuse rashes throughout patient???s core and extremities, certain segments of the rash pattern are raised and peeling while others are not; no weeping noted to any area on patient???s body during exam. Abdomen is soft, non-tender and non-distended; patient report feeling ???bloated.?? Extremities are free of trauma and edema, but exhibit same diffuse rash pattern. [facility] contacted: BMP performed, values uploaded via [employer]. [facility] recommends patient increase the amount of hydroxyzine she takes daily, from 75 mg to 100 mg total. Patient was advised to attend her appointment tomorrow with the lactation specialist and to disclose not only her symptoms, but the improvement of her symptoms while not taking the medication as prescribed. [facility] also advises patient to seek an appointment with primary care as soon as possible, to address a new medication regimen if patientcontinues not to take her prescribed medication. Patient was additionally encouraged to monitor herself for chest pain and shortness of breath, fevers or bloody emesis and was encouraged to seek further medical attention, including 911 if said symptoms were to develop. Patient verbalizes understanding of the plan and states she is comfortable remaining home today. PO_MEDICATION Written by [employer] on 2024-11-07
== END 2024-11-22 11:35 | disposition home or self-care (01) ==
LOC: HO.HKAS 10:48
PROVIDERS: PCP Internal Medicine; Visit Provider Internal Medicine Nephrology
DX: I10 Essential (primary) hypertension (principal)
CPT/HCPCS: 99214

== ENCOUNTER → 2024-11-22 10:47 | Outpatient (BNVA) | payer OTHER, SELFPAY | PROVIDERS: PCP Internal Medicine; Visit Provider Internal Medicine Nephrology | DX: I10 Essential (primary) hypertension (principal) | CPT/HCPCS: 99212 ==

== ENCOUNTER 2024-12-08 13:40 | Outpatient (AMB) | payer OTHER, SELFPAY ==
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
--- NOTE | 2024-12-08 13:42 | HO.NEPHOV ---
Vital Signs 12/08/24 14:18 Height 4 ft 11 in Weight 174 lb 6 oz BMI 35.2 BP 162/82 H Blood Pressure Location Lt brachial Position Sitting Pulse 69 Pulse Source Pulse Oximeter Pulse Oximetry (%) 98 Oxygen Delivery Method Room Air Intake Visit Reasons: High BP Postal Worker Required: No Accompanied by: Other Relationship Allergies benazepril Allergy (Severe, Verified 12/08/24 14:18) Anaphylaxis moxifloxacin Allergy (Intermediate, Verified 12/08/24 14:18) Wheezing duloxetine (From Cymbalta) Adverse Reaction (Intermediate, Verified 12/08/24 14:18) Palpitations pregabalin (From Lyrica) Adverse Reaction (Intermediate, Verified 12/08/24 14:18) Confusion amoxicillin (From Augmentin) Adverse Reaction (Unknown, Verified 12/08/24 14:18) Unknown clavulanic acid (From Augmentin) Adverse Reaction (Unknown, Verified 12/08/24 14:18) Unknown hydralazine Adverse Reaction (Unknown, Verified 12/08/24 14:18) Unknown ibuprofen Adverse Reaction (Unknown, Verified 12/08/24 14:18) Swelling losartan Adverse Reaction (Unknown, Verified 12/08/24 14:18) Nausea nickel Adverse Reaction (Unknown, Verified 12/08/24 14:18) Unknown nifedipine Adverse Reaction (Unknown, Verified 12/08/24 14:18) Unknown prednisone Adverse Reaction (Unknown, Verified 12/08/24 14:18) Unknown maple flavor Adverse Reaction (Severe, Uncoded 05/19/24 11:05) Unknown dust Adverse Reaction (Unknown, Uncoded 05/19/24 11:05) Unknown nuts Adverse Reaction (Unknown, Uncoded 05/19/24 11:05) Unknown pollen Adverse Reaction (Unknown, Uncoded 05/19/24 11:05) Unknown HPI Comments Details: I had the privilege of seeing Mrs. Eldridge in follow-up of her hypertension. She does not have any pedal edema, urinary symptoms, orthostasis, chest pain or proximal nocturnal dyspnea. She had eczematous rash in the past which was thought to be due to labetalol and was D/[place]. She also had emotional lability on metoprolol and was discontinued. She also stopped spironolactone . She has a lot of medications side effects. She is compliant with the low-sodium diet and her medications. She denies taking any other nonsteroidal or abze-bop-jcfdspd medications. She had been having generalized rash and has seen Dermatology( had a biopsy of the lesion). [facility] Medical History Osteopenia Diverticulosis Hypothyroidism Anxiety Type 2 diabetes mellitus without complication Eczema Trigeminal neuralgia of right side of face Surgical History Hx of hysterectomy Hx of tubal ligation Hx of cholecystectomy Social History Household Members: Spouse Alcohol intake: never Patient Tobacco Use Status: Never used Tobacco service: No Current occupational status: retired Review of Systems Const All systems reviewed & are unremarkable except as noted in HPI and below Physical Exam Const General: comfortable and no acute distress Orientation/consciousness: patient oriented x3 HEENT Head: Yes normocephalic Mouth: Normal oral and palatal mucosa present Eyes EOM: EOMs intact bilaterally Neck Neck: Yes supple Resp Auscultation: clear to auscultation bilaterally Cardio Jugular venous distension: no JVD Rate: regular rate GI Palpation (GI): Soft to palpation Auscultation: normal bowel sounds General: Yes no CVA tenderness Back/Spine/Pelvis Back: no CVA tenderness Skin General skin exam: no rashes or lesions noted Neuro General: patient oriented x3 and moves all extremities Extrem General: Yes no pedal edema Results Reviewed Nephrology Results: Sodium, (135-145) 137 mmol/L 11/25/23 Potassium, (3.3-5.1) 4.1 mmol/L 11/25/23 Chloride, (96-108) 107 mmol/L 11/25/23 Carbon Dioxide, (22-29) 24 mmol/L 11/25/23 BUN, (9-16) 19 mg/dL H 11/25/23 Creatinine, (0.5-1.4) 1.08 mg/dL 11/25/23 Urine Protein, (Neg-Trace) 30 (1+) mg/dL H 11/25/23 Urine Creatinine 164.77 mg/dL 10/19/23 Protein/Creatinin Ratio, (<0.2) 0.10 10/19/23 Assessment & Plan Assessment & Plan (1) Hypertension: Code(s): I10 - Essential (primary) hypertension Category: Medical Qualifiers: Hypertension type: primary hypertension Qualified Code(s): I10 - Essential (primary) hypertension Plan Mrs Eldridge has longstanding hypertension on a backdrop of multiple medication intolerances. She could not handle metoprolol as it was giving her emotional instability. She is off labetalol, spironolactone, benazepril, nifedipine and hydralazine . She was encouraged and not to take any nonsteroidal anti-inflammatories including meloxicam for now. She is trying to lose some weight, maintain good hydration, avoid nonsteroidal anti-inflammatory medications and maintain a low-sodium diet. I started her on Amlodipine to 2.5 mg daily. All her questions were answered. Medications: New amlodipine 2.5 mg PO DAILY 30 tabs 3RF Coding Level of Care Code Est Pt Level 4 (36856) Diagnoses Primary hypertension I10 Hypertension type: primary hypertension
[2024-12-08 14:18] VITALS: BP 162/82; PULSE 69; O2SAT 98; BMI 35.2
--- OUTSIDE RECORDS SUMMARY | 2024-12-08 16:39 | XMS_ITS | Data Portability ---
Author Organization [place] - [facility], Allergy Address [address] [facility] 100 [place] [address] Assessment Encounter Date Assessment Date Assessment LastModified by Organization Details LastModified Time 09/25/2023 09/25/2023 68-year-old aaron coleman referred for acute cough and throat sensitivity. Symptoms have improved since starting treatment for allergies and asthma. Fiberoptic laryngoscopy was benign without obvious mass or lesion. She will continue to follow up with her digital media designer for management of asthma. She may continue with Flonase and antihistamines for allergic rhinitis. She may follow up as needed. May consider allergy testing in the future. [email or web address] Not available 09/25/2023 13:57:44 03/01/2024 03/01/2024 Patient [...] fiberoptic exam in September which was normal mine Not available 03/01/2024 09:23:14 05/19/2024 05/19/2024 69-year-old [...] of allergies. She may follow-up as needed. [email or web address] Not available 05/19/2024 10:24:21 Plan of Treatment [...] Organization Details Recorded Time Dizziness and giddiness 268213380 Active 2021 Dizziness and giddiness ; Note: Date Diagnosed : 03/06/2021 2:35 PM (R42) Not Available [facility] 4 02:17:10 Conductiv e hearing loss, bilateral 487119509 Active 2021 Conductiv e hearing loss, bilateral ; Note: Date Diagnosed : 03/06/2021 2:35 PM (H90.0) Not Available [facility] 4 02:16:52 Tinnitus of right ear 46297957105 08 Active 2021 Tinnitus, right ear; Note: Date Diagnosed : 03/06/2021 2:35 PM (H93.11) Not Available Critical [facility] hospital 4 02:17:01 Allergic rhinitis 05055092 Active 2023 ALEX DRAKE PA-C [address] [facility],[place] [address], [place], [address] , [facility] - [facility] 4 13:55:27 Cough 45958506 Active 2023 ALEX DRAKE PA-C [address] [place] [address],[place] [address], [place], [address] , [facility] - [facility] 4 13:55:34 Chronic pharyngit is 034888 Active 2024 ARTEMIO CHADWICK MD [address] [place] [address],[place] [address], [place], [address] , [facility] 5 09:21:08 Amygdalol ith 7127634 Active 2024 ARTEMIO CHADWICK MD [address] [place] [address],[place] [address], [place], [address] , [facility] - [facility] [place] 5 09:21:40 Bilateral tympanosc lerosis 83805907390 614208 Active 2024 ARTEMIO CHADWICK MD [address] [place] [address],[place] [address], [place], [address] , [facility] - [facility] 5 09:21:52 Problem Notes None recorded. Procedures Surgical History Date Name Laterality Status Provider Name and Address Organization Details Recorded Time 09/25/19 24 Fiberoptic Laryngoscopy (Comprehensive) completed ALEX DRAKE PA-C [address] [place] [address], [address], [facility] - [facility] 09/25/2023 13:57:00 Imaging Results None recorded. Procedure Notes None recorded. Medical Equipment None Reported. Allergies Allergen ID Allergen Name Allergen Category Reaction Reaction Severity Criticality Documentation Date Start Date Code Code System Note Provider Name and Address Organization Details Recorded Time 12149 prednison e medicatio n other Not available Not available 06/23/2023 8640 RxNorm React ion: other react ion, Unkno wn; Not Available Critical [facility] hospital 4 00:49:43 11618 hydralazi ne medicatio n other Not available Not available 06/23/2023 5470 RxNorm React ion: other react ion, Unkno wn; Not Available [facility] 4 00:49:44 97180 Lyrica medicatio n other Not available Not available 06/23/2023 77784 1 RxNorm React ion: other react ion, Unkno wn; Not Available [facility] hospital 4 00:49:50 70193 moxifloxa atif medicatio n wheezing Not available Not available 06/23/2023 48960 2 RxNorm React ion: other react ion, Short ness of breat h; Not Available Critical access hospital 4 00:49:51 00937 losartan Not available other Not available Not available 06/23/2023 45547 RxNorm React ion: other react ion, Unkno wn; Not Available [facility] 4 00:49:51 23553 Avelox medicatio n other Not available Not available 06/23/2023 87726 6 RxNorm React ion: other react ion, Unkno wn; Not Available [facility] 4 00:49:54 01510 benazepri l medicatio n anaphylax is Not available Not available 06/23/2023 71304 RxNorm React ion: shock ;; Not Available [facility] 4 00:49:55 03889 ibuprofen medicatio n other Not available Not available 06/23/2023 5640 RxNorm React ion: other react ion, Unkno wn; Not Available Critical access hospital 4 00:49:56 70537 nifedipin e medicatio n other Not available Not available 06/23/2023 7417 RxNorm React ion: other react ion, Unkno wn; Not Available [facility] 4 00:49:57 Medications Name Sig Start Date [...] mg tablet 2021 active Medicati on ID: 508550 B rand Name: tizanidi ne Send Method: E-Prescr ibed Sub s Allowed: subs OK Medic ationGen ericName : tizanidi ne Not Available Not Available Not Available [...] tended release 09/24 completed Medicati on ID: 546491 B rand Name: sharminmichelle m chloride Send Method: E-Prescr ibed Sub s [...] mg) tablet 2021 active Medicati on ID: 475394 B rand Name: calcium carbonat e Send [...] topical cream 2021 active Medicati on ID: 746497 B rand Name: triamcin olone acetonid e Send Method: E-Prescr ibed Sub s Allowed: subs OK [facility] triamcin olone acetonid e Not Available Not Available Not Available trazodone 100 mg tablet active Not Available Not Available Not Available OneTouch Ultra Test strips active Not Available Not Available Not Available amlodipin e 10 mg tablet 09/24 completed Medicati on ID: 069397 B rand Name: amlodipi ne Send Method: E-Prescr ibed Sub s Allowed: subs OK [facility] er[facility] : amlodipi ne Not Available Not [...] injection solution 09/24 completed Medicati on ID: 437874 B rand Name: cyanocob alamin (vitamin B-12) Se nd Method: E-Prescr ibed Sub s Allowed: subs OK Medic ationGen ericName : cyanocob alamin (vitamin B-12) Not Available Not Available Not Available Banophen 25 mg tablet 09/24 completed Medicati on ID: 406291 B rand Name: Banophen Send Method: E-Prescr ibed Sub s Allowed: subs OK Medic ationGen ericName : Banophen Not Available Not Available Not Available metformin 1,000 mg tablet 09/24 completed Medicati on ID: 760685 B rand Name: metformi n Send Method: [...] mg tablet 2021 active Medicati on ID: 819253 B rand Name: hydroxyz ine HCl Send [...] auto-inje ctor 2021 active Medicati on ID: 196759 B rand Name: benny ine Send Method: E-Prescr ibed Sub s Allowed: subs OK Medic ationGen ericName : epinephr ine Not Available Not Available Not Available labetalol 100 mg tablet active Not Available Not Available Not Available albuterol sulfate HFA 90 mcg/actua tion aerosol inhaler 2021 active Medicati on ID: 651542 B rand Name: albutero l sulfate Send [...] aerosol inhaler 09/24 completed Medicati on ID: 321901 B rand Name: Advair HFA Send Method: [...] mg tablet 09/24 completed Medicati on ID: 657296 B rand Name: hydrochl orothiaz fe Send [...] unit) tablet 2021 active Medicati on ID: 580775 B rand Name: cholecal ciferol (vitamin D3) [...] Updated DateTime 03/01/2024 149.86 cm 32.3 kg/m2 79852.78 g Dion Tolentino [facility] 03/01/2024 08:56:48 Date Recorded Body height Body mass index (BMI) Body weight Provider Name and Address Organization Details Last Updated DateTime 05/19/2024 149.86 cm 32.3 kg/m2 90072.78 g Ann Butler MA [facility] 05/19/2024 09:46:03 Date Recorded Body height Body mass index (BMI) Body weight Provider Name and Address Organization Details Last Updated DateTime 09/25/2023 149.86 cm 32.7 kg/m2 83513.96 g Ann Butler MA [facility] 09/25/2023 12:51:38 Social History None recorded. Functional Status None recorded. Mental Status None recorded. Family History Nothing Reported. Medical History No medical history recorded. Gynecological HistoryNo gynecological history recorded. Obstetrics History GPAL:G 0 P 0 0 0 0 Past Encounters Encounter ID Performer Location Encounter Start Date Encounter Closed Date Diagnosis/Indication Diagnosis SNOMED-CT Code Diagnosis ICD10 Code Diagnosis IMO Codes Diagnosis Note [id number] ALEX DRAKE PA-C [facility] [address] [address] 09/25/2023 12:29:34 09/25/2023 13:26:31 Allergic rhinitis 59095415 J30.89 Cough 39115011 R05.1 [id number] ARTEMIO CHADWICK MD [facility] [address] [address] 03/01/2024 08:52:27 03/01/2024 09:26:56 Chronic pharyngitis 947437 J31.2 Amygdalolith 9983270 J35 .8 Bilateral tympanosclerosis 1672047003 5458134 H74.03 [id number] ALEX DRAKE PA-C [facility] [address] [address] 05/19/2024 09:41:36 05/19/2024 10:13:31 Allergic rhinitis 33657259 J30.89 Amygdalolith 4152971 J35 .8 Health Concerns Section Related Observation LastModified by Organization Detai ls LastModified Time None Recorded Concern Status LastModified by Organization Details LastModified Time None Recorded Advance Directives Directive None Recorded Payers Insurance Date Sequence Insurance Name Policy Number Policy Payton Covered Member ID Payton Member ID Guarantor Name 05/12/2024 1 [facility] [employer] - DOS ON OR AFTER 2022 - DUAL ELIGIBLE - MEDIC[place]AGE [place]MED[place]AC[place]/AD VANTAGE - HMO) Jessica Eldridge [id number] Jessica Eldridge 05/12/2024 1 [facility] [employer] - DOS ON OR AFTER 2022 - [employer] (MEDICARE REPLACEMENT/AD VANTAGE - HMO) Jessica Eldridge [id number] Jessica Eldridge 10/01/2023 1 [facility] (MEDICARE REPLACEMENT/AD VANTAGE - HMO) Jessica Chente [id number] Jessica Eldridge Notes Date Note Type Note Provider Name and Address Organization Details Recorded Time 09/25/2023 text/html ROS as noted in the HPI 68-year-old female presents for evaluation of throat sensitivity. She was referred by her digital media designer because at that time she was having [...] was also started on Prilosec by her digital media designer for concern about acid reflux. ARTEMIO FRANKS MD [address] [place] [address], [address], [facility] - [facility] 09/25/2023 15:53:07 03/01/2024 text/html ROS as noted in the [facility] Patient seen at the request of the oral surgeon for possible tonsil stone removal. She presently uses Listerine for her mouthwash. No trouble eating or drinkingShe notes some discomfort in her throat from the tonsil stones. She has a history of trigeminal neuralgia and hearing loss ARTEMIO FRANKS MD [address] [place] [address], [address], [facility] 03/01/2024 09:23:28 05/19/2024 text/html ROS as noted in the HPI 69-year-old female presents for follow-up of allergies and tonsil [...] for management of asthma. YUNIOR LEMA MD [address] [place] [address], [place], [address], [place] - [facility] 05/19/2024 17:22:33 OBGyn Episode No OBEpisode recorded.
--- OUTSIDE RECORDS SUMMARY | 2024-12-08 16:39 | XMS_ITS | Patient Health Record ---
Author Organization [facility] Address [address] [facility] [address] [place] [address] Care Team Providers Care Procurement Professional Logistics Name Role Phone Odette Mariano Primary Care [...] W/U Status Risk Notes Problem Metabolic disorder (96054116) Metabolic disorder, unspecified (E88.9) Active confirmed Problem Polyneuropathy (00927298) Polyneuropathy in diseases classified elsewhere (G63) Active confirmed Problem Enthesopathy of foot region (579063520) Capsulitis of metatarsophalangeal (MTP) joint of right foot (M77.51) Active confirmed Problem Polyneuropathy due to type 2 diabetes mellitus (616862769) Type 2 diabetes mellitus with diabetic polyneuropathy, unspecified whether mcfp insulin use (E11.42) Active confirmed Problem Hereditary disorder of nervous system (660236256) Neuropathy, 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
--- OUTSIDE RECORDS SUMMARY | 2024-12-08 16:39 | XMS_ITS | Clinical Summary ---
Author Organization [facility] Address [address] [place] [address] Care Team Providers Care Iron Pourer Name Role Phone Vianney Day MD Primary [...] age to complete this topic Care Teams Iron Pourer Relationship Specialty Start Date End Date Vianney Day MD PCP - General Internal Medicine 04/16/17
--- OUTSIDE RECORDS SUMMARY | 2024-12-08 16:39 | XMS_ITS | Encounter Summary ---
Author Organization [facility] Address [address] [place] [address] Phone Care Team Providers Care Drop Press Hand Name Role Phone Odette Mariano MD Primary Care Provider [phone] Encounter Details Date Type Department Care Team (Late st Contact Info) Description 06/05/2022 Telephone [facility] [address] [place] [phone] Luba Bennett Social History Tobacco Use Types [...] on filedocumented in this encounter Care Teams Drop Press Hand Relationship Specialty Start Date End Date Odette Mariano MD [address] [address] PCP - General 02/20/20 documented as of this encounter
--- OUTSIDE RECORDS SUMMARY | 2024-12-08 16:39 | XMS_ITS | Data Portability ---
Author Organization [place] - [facility] Address [address] [place] [address] Care Team Providers Care Nail Kegger Name Role Phone KENDAL HERNANDEZ YUSRA Primary Care Provider DC BLANCO OTHER BANNER OTHER [phone] Assessment Encounter Date Assessment Date Assessment LastModified by Organization Details LastModified Time 05/25/2020 05/25/2020 Overview/History :Kevin estrella is a 65-year-old female [facility] of her internal controls specialist from [facility]. The patient reports she has had changed [...] I have accessed patient records on the [facility] [employer] [facility]. This information was pertinent in my medical decision making today. Proper Personal Protective Equipment (PPE), including gloves, eye protection and masks were donned and doffed appropriately and all equipment cleaned using approved technique with germicidal disposable wipes prior to and after care of this patient according to [facility] protocols. Time On [...] 2020 021 [facility], [address] [facility], [place], [address], 18:17:39 Patient TargetsNo targets recorded. Patient Instructions Encounter Date Encounter Id Patient Instructions Last Modified By Organization Details Last Modified Time 05/25/2020 [id number] Acute Nausea and Vomiting/Diarrhea BASIC INFORMATION Acute [...] caused by toxins released from food that g oes bad as well as some types of bacteria [...] disease, do not use Tylenol. Ask your BOTTLE CASER how to address fever if you are concerned about Tylenol use. 3) Anti-diarrheal medicines: These are available [id number], but in some cases are not recommended and can even worsen some cases of intestinal problems. Ask your BOTTLE CASER if you should use them. In children [...] with one of the PCP suggestions [facility]. SEEK CARE IMMEDIATELY IF: 1) [...] in your condition between 8am-10pm, please call Critical access hospital at [phone] to help navigate your care. [email or web address] Not available 05/25/2020 18:02:09 Reason for Referral None Reported. Medical Equipment None Reported. Allergies Allergen ID Allergen Name Allergen Category Reaction Reaction Severity Criticality Documentation Date Start Date Code Code System Note Provider Name and Address Organization Details Recorded Time 818084 Avelox medicatio n Not available Not available Not available 05/25/2020 63572 6 RxNorm SABIHABROOKLYNN LUIS , [address] [place], [address], [place] [facility] 17:55:16 288743 benazepri l medicatio n Not available Not available Not available 05/25/2020 49228 RxNorm SABIHA LUIS NP [address] [place], [address], [place] [facility] 17:55:58 770299 losartan medicatio n Not available Not available Not available 05/25/2020 99747 RxNorm SABIHABROOKLYNN LUIS NP [address] [place], [address], [place] [facility] 17:56:09 444942 ibuprofen medicatio n Not available Not available Not available 05/25/2020 5640 RxNorm SABIHABROOKLYNN LUIS NP [address] [place], [address], [place] [facility] 17:56:18 837371 Augmentin medicatio n Not available Not available Not available 05/25/2020 94417 2 RxNorm SABIHA LUIS , BOTTLE CASER [address], [place], [address], [place] [facility] 17:57:22 214523 nifedipin e medicatio n Not available Not available Not available 05/25/2020 7417 RxNorm SABIHA LUIS , BOTTLE CASER [address], [place], [address], [place] [facility] 17:57:28 [...] triamcinolo ne acetonide 0.1 % topical cream MU EXT AA BID active Not Available Not [...] Pulse oximetry Heart rate Respiratory rate Systolic And Diastolic Provider Name and Address Organization Details Last Updated DateTime 1 99 [degF] 96 % 96 % 74 /min 20 /min 152/88 mm[Hg] Not Available [facility] 18:06:14 Social History Question Answer Notes LastModified by Organizat ion Details LastModified Time Tobacco Smoking Status Never Smoker SABIHA LUIS, [address], [place], [address], [place] [facility] 05/25/2020 18:01:08 Do You Have An Advance Directive? No [email or web address] Information not available 05/25/2020 What Is Your Code Status? Full Code [email or web address] Information not available 05/25/2020 Within The Past 12 Months, Has It Happened That The Food You Bought Just Didn't Last And You Didn't Have Money To Get More. No Information not available 05/25/2020 Within The Past 12 Months, Have You Worried That Your Food Would Run Out Before You Got Money To Buy More. No Information not available 05/25/2020 Fall Risk: Do You Feel Unsteady When Standing Or Walking? No [email or web address] Information not available 05/25/2020 We Know That How And When People Interact With Friends And Family Can Be Very Different From Person To Person. How Often Do You Have The Opportunity To See Or Talk To People That You Care About And Feel Close To? (Ex: Talking To Friends On The Phone Or Visiting Friends Or Family Or Going To Christian Or Club Meetings) 3 Or 4 Times Per Week [email or web address] Information not available 05/25/2020 We Know From Many Of Our Patients That Covering All Of Their Costs Can Be Difficult At Times. This Can Cause Stress And Impact Health. In The Past Year, Have You Been Unable To Get Any Of The Following When It Was Really Needed? No [email or web address] Information not available 05/25/2020 What Is Your Housing Situation Today? I Have Housing [email or web address] Information not available 05/25/2020 Would You Like Help Connecting To Resources? None [email or web address] Information not available 05/25/2020 Sex: Unknown Functional Status None recorded. Mental Status None recorded. Family History Relationship Description Onset Age of this Age Resolved Age Notes LastModified by Organization Details LastModified Time Mother Diabetes mellitus [email or web address] Not available 18:01:48 Father Malignant neoplastic disease [email or web address] Not available 18:01:59 Medical History Condition Response Coronary Artery Disease N High Cholesterol N Pulmonary Embolism N Cancer Y Hypertension Y Stroke N Asthma Y Depression N COPD N Kidney Disease N Gynecological HistoryNo gynecological history recorded. Obstetrics History GPAL:G 0 P 0 0 0 0 Past Encounters Encounter ID Performer Location Encounter Start Date Encounter Closed Date Diagnosis/Indication Diagnosis SNOMED-CT Code Diagnosis ICD10 Code Diagnosis IMO Codes Diagnosis Note [id number] [facility] [address] [place] [place] [address] 05/25/2020 17:43:31 05/29/2020 23:27:04 Nausea 773761851 R11.0 Anxiety 30518789 F41.9 Health Concerns Section Related Observation LastModified by Organization Detai ls LastModified Time None Recorded Concern Status LastModified by Organization Details LastModified Time None Recorded Advance Directives Directive N: Payers Insurance Date Sequence Insurance Name Policy Number Policy Payton Covered Member ID Payton Member ID Guarantor Name 05/25/2020 1 [place] [employer] Jessica Chente [id number] Jessica Chente 05/25/2020 2 [place] [facility] Jessica Chente [id number] Jessica Chente 05/25/2020 1 *SELF PAY* Jessica Chente [id number] Jessica Chente 05/29/2020 1 [place] [employer] Jessica Chente [id number] Jessica Chente 05/29/2020 1 [place] [employer] Jessica Chente [id number] Jessica Chente 05/29/2020 [facility] PR[facility] TO [facility] - DUAL ELIGIBLE (MEDICARE REPLACEMENT/AD VANTAGE - HMO) Jessica Chente [id number] Jessica Chente 05/29/2020 1 [place] [employer] Jessica Chente [id number] Jessica Chente Notes Date Note Type Note Provider Name and Address Organization Details Recorded Time 05/25/2020 text/html General HPI Temp late - DHReported by Patient This is a 65-year-old female , she is a new patient who [facility]. She has a medical history significant for asthma, history of endometrial cancer, hypertension, hypothyroidism and fibromyalgia. She contracts [employer] the suggestion of her internal controls specialist through [facility]. The patient reports that she follows with a doctor from [facility] for pain control. She recently was [...] No recent sick contacts. No diarrhea. SABIHA LUIS, [address], [place], [address], [place] [facility] 05/25/2020 18:53:53 OBGyn Episode No OBEpisode recorded.
--- OUTSIDE RECORDS SUMMARY | 2024-12-08 16:39 | XMS_ITS | Clinical Summary ---
Author Organization [facility] Address [address] [facility] [address] [place] [address] Phone Care Team Providers Care Healthcare Risk Control Consultant Name Role Phone Odette Mariano MD Primary Care Provider [phone] Allergies Active Allergy Reactions Criticality Noted Date [...] eval at [facility] by Dr. Gage 04/27/2014--trial of Cymbalta History of cholecystectomy 01/25/2013 0 06/25/2020 History of colonoscopy 01/25/201306/25 Ventral hernia 01/25/2013 06/25/2020 Degeneration of lumbar intervertebral disc 01/25/2013 06/26/2020 Overview (06/26/2020): Physiatry eval at [facility] by Dr. Gage 04/27/2014--trial of Cymbalta Immunizations [...] mg/dl PVNMA 03/03/2019 us [facility] [id number] LICITED RESULTS Final Result PVNMA from Last 3 Months or Most Recently Relevant to Health Maintenance Insurance [facility] ([id number]) [facility] ([id number]) Care Teams Healthcare Risk Control Consultant Relationship Specialty Start Date End Date Odette Mariano MD [address] [facility] [address] [place] [address] PCP - General 02/20/20
--- OUTSIDE RECORDS SUMMARY | 2024-12-08 16:40 | XMS_ITS | Clinical Summary ---
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 [facility] [address] [place] [address], * MIKKI IFA with titer and pattern (09/16/2024 8:33 AM EDT) MIKKI Negative Negative 09/16/2024 12:35 PM EDT [facility] Comment:MIKKI performed by ind irect immunofluorescence (IFA) using HEp-2 substrate. Blood Venous blood specimen / Unknown Venipuncture / Unknown 09/16/2024 8:33 AM EDT 09/16/2024 9:18 AM EDT Israel SHARMA LAB BLOOD ORDERABLES Fin al Result [facility] [address] [place] [address], [place] [phone] * Tryptase (09/16/2024 8:33 AM EDT) Tryptase 6 <11 ug/L 09/20/2024 11:49 AM EDT [facility] Comment: Test performed at [facility], [address], [place] [address] Heike Verdin MD, PhD - [employer] Blood Venous blood specimen / Unknown Venipuncture / Unknown 09/16/2024 8:33 AM EDT 09/16/2024 9:19 AM EDT Israel SHARMA LAB BLOOD ORDERABLES Fin al Result Performing Organization Address [facility]/ZIP Co de Phone Number [facility] [address] [place] [address] * Vitamin D 25 hydroxy (09/16/2024 8:33 AM EDT) Pathologist [facility] Vit D, 25-Hydroxy 31.7 30.0 - 80.0 ng/mL LAB CHEMISTRY METHOD 09/16/2024 11:49 AM EDT [facility] Blood Venous blood specimen / Unknown Venipuncture / Unknown 09/16/2024 8:33 AM EDT 09/16/2024 9:19 AM EDT Israel SHARMA LAB BLOOD ORDERABLES Fin al Result Performing Organization Address City/[facility]/ZIP Co de Phone Number [facility] [address] [place] [address], [place] [phone] * Immunoglobulins IgG, IgA, IgM (09/16/2024 8:33 AM EDT) Total IgG 769 549 - 1,584 mg/dL LAB CHEMISTRY METHOD 09/16/2024 10:23 AM EDT [facility] IgA 174 61 - 348 mg/dL LAB CHEMISTRY METHOD 09/16/2024 10:23 AM EDT [facility] IgM 31 23 - 259 mg/dL LAB CHEMISTRY METHOD 09/16/2024 10:23 AM EDT [facility] Blood Venous blood specimen / Unknown Venipuncture / Unknown 09/16/2024 8:33 AM EDT 09/16/2024 9:19 AM EDT Israel SHARMA LAB BLOOD ORDERABLES Fin al Result Performing Organization Address [facility]/ZIP Co de Phone Number [facility] [address] [place] [address], * C4 complement (09/16/2024 8:33 AM EDT) C4 Complement 28 16 - 47 mg/dL LAB CHEMISTRY METHOD 09/16/2024 10:23 AM EDT [facility] Blood Venous blood specimen / Unknown Venipuncture / Unknown 09/16/2024 8:33 AM EDT 09/16/2024 9:19 AM EDT Israel SHARMA LAB BLOOD ORDERABLES Fin al Result [facility] [address] [place] [address], * Thyroid stimulating hormone (09/16/2024 8:33 AM EDT) TSH 3.58 0.40 - 4.00 mcIU/mL LAB CHEMISTRY METHOD 09/16/2024 11:50 AM EDT [facility] Blood Venous blood specimen / Unknown Venipuncture / Unknown 09/16/2024 8:33 AM EDT 09/16/2024 9:19 AM EDT Israel SHARMA LAB BLOOD ORDERABLES Fin al Result Performing Organization Address [facility] de Phone Number [facility] [address] [place] [address], * Thyroxine free (09/16/2024 8:33 AM EDT) Free T4 0.93 0.70 - 1.80 ng/dL LAB CHEMISTRY METHOD 09/16/2024 11:49 AM EDT [facility] Blood Venous blood specimen / Unknown Venipuncture / Unknown 09/16/2024 8:33 AM EDT 09/16/2024 9:19 AM EDT Israel SHARMA LAB BLOOD ORDERABLES Fin al Result Performing Organization Address [facility] de Phone Number [facility] [address] [place] [address], * Immunoglobulin IgE (09/16/2024 8:33 AM EDT) IgE <2.5 0.0 - 158.0 I Unit/mL LAB CHEMISTRY METHOD 09/16/2024 11:50 AM EDT [facility] Blood Venous blood specimen / Unknown Venipuncture / Unknown 09/16/2024 8:33 AM EDT 09/16/2024 9:19 AM EDT Israel SHARMA LAB BLOOD ORDERABLES Fin al Result Performing Organization Address [facility] Co de Phone Number [facility] [address] [place] [address], [place] [phone] * (ABNORMAL) Comprehensive metabolic panel (09/16/2024 8:33 AM ED) Sodium 141 133 - 145 mmol/L LAB CHEMISTRY METHOD 09/16/2024 10:23 AM [facility] Potassium 4.0 3.5 - 5.5 mmol/L LAB CHEMISTRY METHOD 09/16/2024 10:23 AM [facility] Chloride 111(H) 96 - 110 mmol/L LAB CHEMISTRY METHOD 09/16/2024 10:23 AM [facility] CO2 24 21 - 32 mmol/L LAB CHEMISTRY METHOD 09/16/2024 10:23 AM [facility] Anion Gap 6 3 - 11 LAB CHEMISTRY METHOD 09/16/2024 10:23 AM [facility] Glucose 50(L) 70 - 100 mg/dL LAB CHEMISTRY METHOD 09/16/2024 10:23 AM [facility] BUN 14 5 - 25 mg/dL LAB CHEMISTRY METHOD 09/16/2024 10:23 AM [facility] Creatinine 1.12(H) 0.50 - 1.10 mg/dL LAB CHEMISTRY METHOD 09/16/2024 10:23 AM [facility] eGFR 53(L) >=60 mL/min/1. 73m2 LAB CHEMISTRY METHOD 09/16/2024 10:23 AM [facility] Comment:Calculation based on the Chronic Kidney Disease Epidemiology Collaboration (CKD-EPI) equation refit without adjustment for race. BUN/Creatinine Ratio 12.5 LAB CHEMISTRY METHOD 09/16/2024 10:23 AM [facility] Calcium 9.3 8.5 - 10.5 mg/dL LAB CHEMISTRY METHOD 09/16/2024 10:23 AM [facility] AST (SGOT) 16 10 - 42 unit/L LAB CHEMISTRY METHOD 09/16/2024 10:23 AM [facility] ALT (SGPT) 35 10 - 60 unit/L LAB CHEMISTRY METHOD 09/16/2024 10:23 AM EDT [facility] Alkaline Phosphatase 70 42 - 121 unit/L LAB CHEMISTRY METHOD 09/16/2024 10:23 AM EDT [facility] Total Protein 6.5 6.0 - 8.0 g/dL LAB CHEMISTRY METHOD 09/16/2024 10:23 AM EDT [facility] Albumin 3.8 3.2 - 5.0 g/dL LAB CHEMISTRY METHOD 09/16/2024 10:23 AM EDT [facility] Total Bilirubin 0.5 0.0 - 1.4 mg/dL LAB CHEMISTRY METHOD 09/16/2024 10:23 AM EDT [facility] Blood Venous blood specimen / Unknown Venipuncture / Unknown 09/16/2024 8:33 AM EDT 09/16/2024 9:19 AM EDT Israel SHARMA LAB BLOOD ORDERABLES Fin al Result [facility] [address] [place] [address], [place] [phone] * Hepatitis C antibody (08/17/2024 11:20 AM EDT) Hepatitis C Antibody Negative Negative LAB CHEMISTRY METHOD 08/17/2024 3:26 PM EDT [facility] Blood Venous blood specimen / Unknown Venipuncture / Unknown 08/17/2024 11:20 AM EDT 08/17/2024 11:20 AM EDT Maria De Jesus Holcomb NP LAB BLOOD ORDERABLES Final Resul t [facility] [address] [place] [address], [place] [phone] * MIMI SCREENING DIGITAL (07/20/2023 10:42 AM EDT) Anatomical Region Laterality Modality Mammography 07/20/2023 9:02 AM EDT Narrative 07/20/2023 10:42 AM EDT [facility] Diagnostic Imaging Department [address] [place] [id number] Patient: JESSICA BECKWITH /Age/Sex: 1955 68 - F Unit#: [id number] Location/Status: SPDIMA/REG CLI Mnemonic/Ordering Site: [facility] Ordering Physician: KENDAL MARIANO MD [facility] Screening Digital - 07/20/[address]23 Report Status:Signed EXAM: [facility] Screening Digital EXAM DATE AND TIME: 07/20/2023 9:25 AM HISTORY: Screening. Previous left breast biopsy, pathology benign. COMPARISON: 07/15/22, 07/10/21, 07/04/20 TECHNIQUE: Bilateral digital breast tomosynthesis was performed in the CC and MLO projections. Computer aided detection with Physcient 3D 3.1 was employed. TISSUE DENSITY: a. [...] Procedure Note Alda Nice MD - 11/25/2023 [facility] Diagnostic Imaging Department [address] [place] [id number] Patient: JACKIE BECKWITHROLAN DumontO.B./Age/Sex: 1955 - 68 - F Unit#: [id number] Location/Status: [facility] CLI Mnemonic/Ordering Site: [facility] Ordering Physician: KENDAL MARIANO MD [facility] Screening Digital - 07/20/23 - 923 Report Status:Signed EXAM: [facility] Screening Digital EXAM DATE AND TIME: 07/20/2023 9:25 AM HISTORY: Screening. Previous left breast biopsy, pathology benign. COMPARISON: 07/15/22, 07/10/21, 07/04/20 TECHNIQUE: Bilateral digital breast tomosynthesis was performed in the CCand MLO projections. Computer aided detection with AncestryD Laura Sapiens 3D 3.1was employed. TISSUE DENSITY: a. The [...] 07/20/23 1040 Sign date/Time: 07/20/23 1042 Result [facility] Kendal Mariano MD IMG BI PROCEDURES Final Result * Lipid panel (06/18/2023) [facility] LDL/HDL Ratio 3 0 - 4 Triglycerides 80 0 - 150 mg/dL Cholesterol 159 0 - 200 mg/dL HDL 55 >=40 mg/dL LDL Cholesterol 88 0 - 100 mg/dL Blood Venous blood specimen / Unknown Result [facility] LAB BLOOD ORDERABLES Nirmala l Result * Depression Screening (06/09/2023) [facility] Depression Screening abstracted Result [facility] HEALTH MAINTENANCE Final Result * Diabetes Eye Exam (04/07/2023) [facility] Diabetes: Annual Retina Eye Exam abstracted Result [facility] HEALTH MAINTENANCE Final Result * Colonoscopy (12/03/2020) [facility] Colonoscopy no interpreta tion,abstr acted Anatomical Region Laterality Modality Other Result [facility] HEALTH MAINTENANCE Final Result * Urine Albumin Creatinine Ratio (06/01/2019) [facility] Urine Albumin Creatinine Ratio abstracted Result [facility] HEALTH MAINTENANCE Final Result from Last 3 Months or Most Recently Relevant to Health Maintenance Insurance [facility] MEDICARE Member Subscriber Plan / Payer (Ef fective 2020-Present) Name:JESSICA BECKWITH Relation to Subscriber:Self Name:Jessica Beckwith Payer ID:[id number] Group ID:[id number] Type:Not on file Address: [place] [facility] [place] [id number] Advance Directives Documents on File Type Date Recorded 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
--- OUTSIDE RECORDS SUMMARY | 2024-12-08 16:40 | XMS_ITS | Data Portability ---
Author Organization [facility] Address [address] [place] [id number] Care Team Providers Care Manager Produce Name Role Phone HIM PAULINA OTHER Assessment Encounter Date Assessment Date Assessment LastModified by Organization Details LastModified Time 11/07/2024 11/07/2024 I provided real -time medical direction via phone for this encounter, and was available for additional phone based assistance as needed. I have reviewed and agree with the Assessment and Plan as documented by the Cost Recovery Technician. We discussed the diagnostic uncertainty of home visits and the risk associated with this. In this case the patient and I felt this to be an acceptable and reasonable amount of risk given the benefit of avoiding an ED visit. The patient given the opportunity to ask questions. Advised if develops CP/severe SOB/turning blue/uncontrolle d n/v/d or black/bloody emesis or stool/ uncontolled nosebleed/ hermann hematuria/AMS/ syncope/ hi fever to call 911- verbalized understanding of instruction [id number] Not available 11/07/2024 13:30:18 Plan of Treatment Reminders Order Date Submit Date Provider Last Modified By Organization Details Last Modified Time Details Appointments None recorded . Lab BMP, serum or plasma 025 11/08/19 25 [facility], [address] [place] [address], [id number] 18:52:07 Referral None recorded . Procedures None recorded . Surgeries None recorded . Imaging None recorded . Medication Orders None recorded . Patient TargetsNo targets recorded. Patient InstructionsNo instructions recorded. Reason for Referral None Reported. Results Created Date Observation Date Name Description Value Unit Range Abnormal Flag Note LastModifiedBy Organization Detail LastModifiedTime Result Notes None recorded. Medical Equipment None Reported. Allergies Allergen ID Allergen Name Allergen Category Reaction Reaction Severity Criticality Documentation Date Start Date Code Code System Note Provider Name and Address Organization Details Recorded Time 91410 tree nut food Not available Not available Not available 11/07/2024 Not Available [facility] - production 5 10:59:21 86961 peanut allergeni c extract food,medi cation Not available Not available Not available 11/07/2024 65242 8 RxNorm Not Available [facility] - production 5 10:59:21 70057 ibuprofen medicatio n Not available Not available Not available 11/07/2024 5640 RxNorm Not Available [facility] 5 10:59:21 45737 Avelox medicatio n Not available Not available Not available 11/07/2024 09374 6 RxNorm Not Available [facility] 5 10:59:21 27331 benazepri l medicatio n Not available Not available Not available 11/07/2024 71356 RxNorm Not Available [facility] 5 10:59:21 18561 Cymbalta medicatio n Not available Not available Not available 11/07/2024 08718 4 RxNorm Not Available [facility] - production 5 10:59:21 26144 Savella medicatio n Not available Not available Not available 11/07/2024 79441 6 RxNorm Not Available [facility] production 5 10:59:21 41511 famotidin e medicatio n Not available Not available Not available 11/07/2024 4278 RxNorm Not Available [facility] 5 10:59:21 12634 Lyrica medicatio n Not available Not available Not available 11/07/2024 94744 1 RxNorm Not Available [facility] - production 5 10:59:21 73393 nifedipin e medicatio n Not available Not available Not available 11/07/2024 7417 RxNorm Not Available [facility] - production 5 10:59:21 Medications Name Sig Start Date Stop Date Status Note LastModified by Organization Details LastModified Time prednisone 10 mg tablet TAKE 1 TABLET BY MOUTH THREE TIMES DAILY FOR 5 DAYS active Not Available Not Available No t Available doxycycline hyclate 100 mg capsule TAKE ONE CAPSULE BY MOUTH TWICE DAILY WITH 8 OUNCES OF WATER. DO NOT LIE DOWN FOR 30 MINUTES AFTER. GIVE 2 HOURS BEFORE OTHER MEDS OR FOOD active Not Available Not Available No t Available cetirizine 10 mg tablet TAKE 1 TABLET BY MOUTH DAILY AT BEDTIME active Not Available Not Available No t Available ketotifen 0.025 % (0.035 %) eye drops INSTILL 1 DROP IN BOTH EYES THREE TIMES DAILY FOR 1 WEEK FOR ITCHING active Not Available Not Available No t Available doxycycline monohydrate 100 mg tablet TAKE 1 TABLET BY MOUTH TWICE DAILY FOR 10 DAYS 11/07 completed Not Available Not Available Not Available cephalexin 500 mg capsule TAKE 1 CAPSULE BY MOUTH TWICE DAILY FOR 7 DAYS 11/07 completed Not Available Not Available Not Available nitrofurant oin macrocrysta l 100 mg capsule TAKE 1 CAPSULE BY MOUTH TWICE DAILY 11/07 completed Not Available Not Available Not Available betamethaso ne dipropionat e 0.05 % topical cream APPLY TOPICALLY TWICE DAILY NEEDED active Not Available Not Available No t Available azelastine 137 mcg (0.1 %) nasal spray USE 2 SPRAYS IN EACH NOSTRIL TWICE DAILY NEEDED active Not Available Not Available No t Available methylpredn isolone 4 mg tablets in a dose pack FOLLOW PACKAGE DIRECTION S active Not Available Not Available No t Available fluticasone propionate 50 mcg/actuati on nasal spray,suspe nsion SHAKE LIQUID AND USE 2 SPRAYS IN EACH NOSTRIL IN THE EVENING active Not Available Not Available No t Available clotrimazol e 1 % topical cream APPLY TO THE AFFECTED AREA TWICE DAILY FOR 14 DAYS OR UNTIL CLEARED active Not Available Not Available No t Available loratadine 10 mg tablet TAKE 1 TABLET BY MOUTH EVERY MORNING active Not Available Not Available No t Available cyclosporin e 100 mg capsule TAKE 1 CAPSULE BY MOUTH TWICE DAILY active Not Available Not Available No t Available mometasone 0.1 % topical cream APPLY A THIN LAYER TO AFFECTED AREA TWICE DAILY FOR 2 WEEKS THEN STOP. AVOID FACE AND GROIN. active Not Available Not Available No t Available tobramycin 0.3 %-dexametha sone 0.1 % eye drops,suspe nsion INSTILL 1 DROP BOTH EYES THREE TIMES DAILY FOR 1 WEEK THEN EVERY DAY FOR 1 WEEK active Not Available Not Available No t Available diclofenac 1 % topical gel APPLY 4 GRAMS TOPICALLY TO THE AFFECTED AREA TWICE DAILY active Not Available Not Available No t Available Chest Congestion Relief DM 10 mg-100 mg/5 mL oral syrup TAKE 5 ML BY MOUTH EVERY 4 HOURS NEEDED FOR COUGH active Not Available Not Available No t Available Vitals Date Recorded Heart rate Respiratory rate Body temperature Oxygen saturation Oxygen saturation in Arterial blood by Pulse oximetry Systolic And Diastolic Provider Name and Address Organization Details Last Updated DateTime 5 64 /min 18 /min 98.1 [degF] 98 % 98 % 142/98 mm[Hg] Not Available [facility] - production 5 12:58:41 Social History None recorded. Functional Status None recorded. Mental Status None recorded. Family History Nothing Reported. Medical History No medical history recorded. Gynecological HistoryNo gynecological history recorded. Obstetrics History GPAL:G 0 P 0 0 0 0 Past Encounters Encounter ID Performer Location Encounter Start Date Encounter Closed Date Diagnosis/Indication Diagnosis SNOMED-CT Code Diagnosis ICD10 Code Diagnosis IMO Codes Diagnosis Note [id number] Joanna Marshall MD [facility] ED Medical [address] [address] 11/07/2024 12:58:22 11/08/2024 22:03:32 Eruption [id number] R21 72435 Allergic vs autoimmune vs vascular-p atient admits her building guard deputy sheriff and her dermatolog ist have been unable to figure this out advised- further w/u beyond our scope- on 10/17 H & H 14.3/44.8, plat 227K, Bun 18/cr 1.17/ gfr 50/ BS 94- labs today stable- patient reports when she stopped her atorvastat in x 1 week and labetolol for 4 days her rash was better/ took labetolol last night and felt itchy 30-45min s/p: HOLD labetolol and atorvastat in ONLY and d/w building guard deputy sheriff tomorrow and also advised to d/w pcp today as do not want to be off betablocke r w/out substitute watermelon harvesting supervisor advise to increase hydroxyzin e to 25 mg 4 x per day-she is currently taking it 2-3 times a day, to help control the itching. She reports she was recently on steroids and it did not help and she is currently on cyclospori ne to control the autoimmune potential portion, thus I am unsure how to help her. Health Concerns Section Related Observation LastModified by Organization Detai ls LastModified Time None Recorded Concern Status LastModified by Organization Details LastModified Time None Recorded Advance Directives Directive None Recorded Payers Insurance Date Sequence Insurance Name Policy Number Policy Payton Covered Member ID Payton Member ID Guarantor Name 11/07/2024 1 [facility] - DOS ON OR AFTER 2022 - DUAL ELIGIBLE - RETIREMENT OPTIONS AND ONE CARE (MEDICARE REPLACEMENT/AD VANTAGE - HMO) Jessica Eldridge [id number] Jessica Eldridge Notes Date Note Type Note Provider Name and Address Organization Details Recorded Time 11/07/2024 text/html ROS as noted in the HPI 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 Chronic rash on/off for last 6-7 months. Recently seen in the ED for symptoms. Was prescribed Hydroxyzine for symptoms. Worsening itchiness today. Denies shortness of breath, wheezing, drooling/difficulty swallowing, tongue swelling. Has follow up scheduled with lands resource manager in December - follow up with PCP tomorrow. Collateral history: syphilis, also taking cyclosporine regularly. ...................... ...................... ...................... ...................... ...................... ...................... ......... 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 Cost Recovery Technician Organization Information for [facility] Business Legal Name: [employer]. Address: [address] [place] [id number], Berry Picker Machine Operator: Yimi Donis MD CLIA No.: [id number] Cost Recovery Technician POC Test Results from [facility] iSTAT Chem8+ (13:21:08) Na: 140mEq/L K: 3.9mEq/L Cl: 106mEq/L iCa: 1.23mmol/L TCO2: 22mmol/L Glu: 148mg/dL BUN: 22mg/dL Crea: 1.1mg/dL Hct: 43% Hb: 14.6g/dL Ammol/L Cartridge Number: [id number] Attachments uploaded as part of this test result can be found under Documents section. ...................... ...................... ...................... ...................... ...................... ...................... ......... Cost Recovery Technician Note From [facility]: Encountered patient conscious, alert and ambulatory. Patient [...] later. Patient states she is seeing her security assurance specialist on 11/08/24. Skin warm, dry and exhibits diffuse rashes throughout patient s core and extremities, certain segments of the rash pattern are raised and peeling while others are not; no weeping noted to any area on patient s body during exam. Abdomen is soft, non-tender and non-distended; patient report feeling b loated. Extremities are free of trauma and edema, but exhibit same diffuse rash pattern. [facility] contacted: BMP performed, values uploaded via [employer]. [facility] recommends patient increase the amount of hydroxyzine she takes daily, from 75 mg to 100 mg total. Patient was advised to attend her appointment tomorrow with the security assurance specialist and to disclose not only her symptoms, but the improvement of her symptoms while not taking the medication as prescribed. [facility] also advises patient to seek an appointment with primary care as soon as possible, to address a new medication regimen if patient continues not to take her prescribed medication. Patient was additionally encouraged to monitor herself for chest pain and shortness of breath, fevers or bloody emesis and was encouraged to seek further medical attention, including 911 if said symptoms were to develop. Patient verbalizes understanding of the plan and states she is comfortable remaining home today. [facility] Lab Orders: BMP, serum or plasma: Performed ...................... ...................... ...................... ...................... ...................... ...................... ......... [facility] Consulted: Joanna Marshall ...................... ...................... ...................... ...................... ...................... ...................... ......... Disposition: Fulfilled Joanna Marshall MD [address] [place] [address],[address], [place], [address], LUCIE SANCHEZ 11/08/2024 17:13:14 OBGyn Episode No OBEpisode recorded.
== END 2024-12-08 14:39 | disposition home or self-care (01) ==
LOC: HO.HKAS 13:41
PROVIDERS: PCP Internal Medicine; Visit Provider Internal Medicine Nephrology
DX: I10 Essential (primary) hypertension (principal)
CPT/HCPCS: 99214

== ENCOUNTER → 2024-12-08 13:40 | Outpatient (BNVA) | payer OTHER, SELFPAY | PROVIDERS: PCP Internal Medicine; Visit Provider Internal Medicine Nephrology | DX: I10 Essential (primary) hypertension (principal) | CPT/HCPCS: 99212 ==

== ENCOUNTER 2025-01-10 11:27 | Outpatient (AMB) | payer OTHER, SELFPAY ==
--- NOTE | 2025-01-10 11:37 | HO.NEPHOV_ITS ---
Vital Signs 01/10/25 11:42 Height 4 ft 11 in Weight 175 lb BMI 35.3 BP 136/80 Blood Pressure Location Lt brachial Position Sitting Pulse 72 Pulse Source Pulse Oximeter Pulse Oximetry (%) 97 Oxygen Delivery Method Room Air Intake Visit Reasons: 1mon f/u w/labs-Conf Shift Supervisor Required: No Accompanied by: Other Relationship Allergies benazepril Allergy (Severe, Verified 01/10/25 11:41) Anaphylaxis moxifloxacin Allergy (Intermediate, Verified 01/10/25 11:41) Wheezing duloxetine (From Cymbalta) Adverse Reaction (Intermediate, Verified 01/10/25 11:41) Palpitations pregabalin (From Lyrica) Adverse Reaction (Intermediate, Verified 01/10/25 11:41) Confusion amoxicillin (From Augmentin) Adverse Reaction (Unknown, Verified 01/10/25 11:41) Unknown clavulanic acid (From Augmentin) Adverse Reaction (Unknown, Verified 01/10/25 11:41) Unknown hydralazine Adverse Reaction (Unknown, Verified 01/10/25 11:41) Unknown ibuprofen Adverse Reaction (Unknown, Verified 01/10/25 11:41) Swelling losartan Adverse Reaction (Unknown, Verified 01/10/25 11:41) Nausea nickel Adverse Reaction (Unknown, Verified 01/10/25 11:41) Unknown nifedipine Adverse Reaction (Unknown, Verified 01/10/25 11:41) Unknown prednisone Adverse Reaction (Unknown, Verified 01/10/25 11:41) Unknown maple flavor Adverse Reaction (Severe, Uncoded 05/19/24 11:05) Unknown dust Adverse Reaction (Unknown, Uncoded 05/19/24 11:05) Unknown nuts Adverse Reaction (Unknown, Uncoded 05/19/24 11:05) Unknown pollen Adverse Reaction (Unknown, Uncoded 05/19/24 11:05) Unknown HPI Comments Details: I had the privilege of seeing Mrs. Eldridge in follow-up of her hypertension. She does not have any pedal edema, urinary symptoms, orthostasis, chest pain or proximal nocturnal dyspnea. She had eczematous rash in the past which was thought to be due to labetalol and was D/[place]. She also had emotional lability on metoprolol and was discontinued. She also stopped spironolactone . She has a lot of medications side effects. She is compliant with the low-sodium diet and her medications. She denies taking any other nonsteroidal or fxty-[id number] medications. She had been having generalized rash and has seen Dermatology( had a biopsy of the lesion) & [facility] Medical History Osteopenia Diverticulosis Hypothyroidism Anxiety Type 2 diabetes mellitus without complication Eczema Trigeminal neuralgia of right side of face Surgical History Hx of hysterectomy Hx of tubal ligation Hx of cholecystectomy Social History Household Members: Spouse Alcohol intake: never Patient Tobacco Use Status: Never used Tobacco service: No Current occupational status: retired Review of Systems Const All systems reviewed & are unremarkable except as noted in HPI and below Physical Exam Vital Signs: Last Vital Signs Pulse 72 01/10/25 11:42 BP 136/80 01/10/25 11:42 Pulse Ox 97 01/10/25 11:42 Oxygen Delivery Method Room Air 01/10/25 11:42 BMI result Body Mass Index 35.3 Const General: comfortable and no acute distress Orientation/consciousness: patient oriented x3 HEENT Head: Yes normocephalic Mouth: Normal oral and palatal mucosa present Eyes EOM: EOMs intact bilaterally Neck Neck: Yes supple Resp Auscultation: clear to auscultation bilaterally Cardio Jugular venous distension: no JVD Rate: regular rate GI Palpation (GI): Soft to palpation Auscultation: normal bowel sounds General: Yes no CVA tenderness Back/Spine/Pelvis Back: no CVA tenderness Skin General skin exam: no rashes or lesions noted Neuro General: patient oriented x3 and moves all extremities Extrem General: Yes no pedal edema Results Reviewed Nephrology Results: Sodium, (135-145) 137 mmol/L 11/25/23 Potassium, (3.3-5.1) 4.1 mmol/L 11/25/23 Chloride, (96-108) 107 mmol/L 11/25/23 Carbon Dioxide, (22-29) 24 mmol/L 11/25/23 BUN, (9-16) 19 mg/dL H 11/25/23 Creatinine, (0.5-1.4) 1.08 mg/dL 11/25/23 Urine Protein, (Neg-Trace) 30 (1+) mg/dL H 11/25/23 Urine Creatinine 164.77 mg/dL 10/19/23 Protein/Creatinin Ratio, (<0.2) 0.10 10/19/23 Assessment & Plan Assessment & Plan (1) Hypertension: Code(s): I10 - Essential (primary) hypertension Category: Medical Qualifiers: Hypertension type: primary hypertension Qualified Code(s): I10 - Essential (primary) hypertension Plan Mrs Eldridge has longstanding hypertension on a backdrop of multiple medication intolerances. She could not handle metoprolol as it was giving her emotional instability. She is off labetalol, spironolactone, benazepril, nifedipine and hydralazine . She was encouraged and not to take any nonsteroidal anti- inflammatories including meloxicam for now. She is trying to lose some weight, maintain good hydration, avoid nonsteroidal anti-inflammatory medications and maintain a low-sodium diet. I increased her Amlodipine to 5 mg daily. All her questions were answered. Medications: Changed From amlodipine 2.5 mg PO DAILY 30 tabs 3RF To amlodipine 5 mg (2 x 2.5 mg) PO DAILY 180 tabs 3RF 90 days Coding Level of Care Code Est Pt Level 4 (32893) Diagnoses Primary hypertension I10 Hypertension type: primary hypertension
[2025-01-10 11:42] VITALS: BP 136/80; PULSE 72; O2SAT 97; BMI 35.3
--- OUTSIDE RECORDS SUMMARY | 2025-01-10 13:37 | XMS_ITS | Clinical Summary ---
Author Organization [facility] Address [address] [place] [address] Care Team Providers Care Office Support Associate Name Role Phone Vianney Day MD Primary [...] age to complete this topic Care Teams Office Support Associate Relationship Specialty Start Date End Date Vianney Day MD PCP - General Internal Medicine 04/16/17
== END 2025-01-10 11:56 | disposition home or self-care (01) ==
LOC: HO.HKAS 11:27
PROVIDERS: PCP Internal Medicine; Visit Provider Internal Medicine Nephrology
DX: I10 Essential (primary) hypertension (principal)
CPT/HCPCS: 99214

== ENCOUNTER → 2025-01-10 11:27 | Outpatient (BNVA) | payer OTHER, SELFPAY | PROVIDERS: PCP Internal Medicine; Visit Provider Internal Medicine Nephrology | DX: I10 Essential (primary) hypertension (principal); Z79.899 Other long term (current) drug therapy | CPT/HCPCS: 99212 ==